=== PATIENT | male | born 1935 | race Caucasian/White ===

== ENCOUNTER 2016-05-13 09:09 | Outpatient (RCR) | payer MEDICARE, OTHER ==
--- OUTSIDE RECORDS SUMMARY | 2016-02-23 13:29 | XMS REPORT | Continuity of Care Document ---
Author Author [facility] Organization [facility] Address Unknown Phone Unavailable Care Team Providers Care Assembler Hydraulic Backhoe Name Role Phone NO, LOCAL PHYSICIAN PCP Unavailable Insurance Providers Payer Name Policy Number Subscriber Name Relationship Wps Medicare [id number] Charlene Gautam 18 Self / Same As Patient [employer] [id number] Charlene Gautam 18 Self / Same As Patient Advance Directives Directive Response Recorded Date/Time Advance Directives No 10/06/15 12:21pm Health Care Power of Product Lister No 10/06/15 12:21pm Organ Donor No 10/06/15 12:21pm Resuscitation Status Full Code 10/06/15 12:21pm Problems Active Problems Medical Problem Onset Date Status Episode of hypertension Unknown Acute Otalgia of right ear Unknown Acute Otalgia of right ear Unknown Acute Otitis externa Unknown Acute Sinusitis Unknown Acute Medications Current Home Medications Medication Dose Units Route Directions Days/Qty Instructions Start Date Aspirin 81 Mg 81 Mg Oral Daily 08/09/14 Hydrocodone/Acetaminophen 1 Each 1 Each Oral Every 6 Hours as needed for Pain 10 05/31/15 Pantoprazole Sodium 40 Mg 40 Mg Oral Daily 30 10/06/15 Past Home Medications Medication Directions Ordered Status Prednisone 20 Mg Tablet, 40 Mg Oral Daily 08/09/14 Discontinued Cefdinir (Omnicef) 300 Mg Capsule, 1 Each Oral Twice A Day 08/09/14 Discontinued Metronidazole 250 Mg Tablet, 250 Mg Oral Twice A Day 05/31/15 Discontinued Ciprofloxacin Hcl 500 Mg Tablet, 500 Mg Oral Twice A Day 05/31/15 Discontinued Ciprofloxacin Hcl/Dexameth 7.5 Ml Soln, 4 Drops Left Ear Twice A Day Discontinued Social History Social History Problem Response Recorded Date/Time Alcohol Use Denies Use 05/31/2015 7:35am Recreational Drug Use No 05/31/2015 7:35am Recent Foreign Travel No 10/06/2015 12:27pm Recent Infectious Disease Exposure No 10/06/2015 12:27pm Smoking Status Never a Smoker 10/06/2015 12:20pm Query Response Start Date Stop Date Smoking Status Never a Smoker Hospital Discharge Instructions Patient Instructions Physician Instructions New, Converted or Re-Newed RX: RX on Chart Plan of Care/Instructions/FU: Follow-up with me in 3 weeks. To avoid ibuprofen and all non-steroidals. Activity as Tolerated: Yes Discharge Diet: No Restrictions Pneu Vac Indicated: Yes Care Plan Patient Instructions:: Follow-up with me in 3 weeks. To avoid ibuprofen and all non-steroidals. Plan of Care Discharge Date 10/06/15 3:15pm Instructions/Education Provided EGD-ESOPHAGOGASTRODUODENOSCOPY Diet for Ulcers and Gastritis (GEN) Chronic Dysphagia (DC) Prescriptions See Medication Section Functional Status No functional status results. Allergies, Adverse Reactions, Alerts No known allergies. Immunizations No immunization records. Vital Signs Acute Vital Signs Vital Response Date/Time Temperature (Fahrenheit) 97.8 degrees F (97.6 - 99.5) 10/06/2015 3:05pm Temperature (Calculated Celsius) 36.79498 degrees C (36.4 - 37.5) 10/06/2015 3:05pm Temperature Source Tympanic 10/06/2015 3:05pm Pulse Rate (adult) 67 bpm (60 - 90) 10/06/2015 3:05pm Respiratory Rate 16 bpm (12 - 24) 10/06/2015 3:05pm O2 Sat by Pulse Oximetry 98 % (88 - 100) 10/06/2015 3:05pm Blood Pressure 120/63 mm Hg 10/06/2015 3:05pm Pain Numeric Pain Scale 0-No Pain 10/06/2015 1:15pm Pain Intensity 0 10/06/2015 3:05pm Height (Feet) 5 feet 10/06/2015 12:21pm Height (Inches) 7.00 inches 10/06/2015 12:21pm Height (Calculated Centimeters) 170.407204 cm 10/06/2015 12:21pm Weight (Pounds) 180 pounds 10/06/2015 12:21pm Weight (Ounces) 0.0 oz 10/06/2015 12:21pm Weight (Calculated Grams) 37038.627 gm 10/06/2015 12:21pm Weight (Calculated Kilograms) 81.461107 kilograms 10/06/2015 12:21pm Calculated BMI 28.2 10/06/2015 12:19pm Results No known relevant diagnostic tests, laboratory data and/or discharge summary. Procedures Procedure Status Date Provider(s) Esophagogastroduodenoscopy (EGD) with dilation Completed 10/06/15 JIMBO GAMEZ MD Encounters Encounter Location Arrival/Admit Date Discharge/Depart Date Attending Provider Departed [facility] 10/06/15 11:39am 10/06/15 3:15pm JIMBO GAMEZ MD Registered Clinic [facility] 10/03/15 1:51pm JIMBO GAMEZ MD Registered Clinic [facility] 10/03/15 7:34am JIMBO GAMEZ MD
[2016-02-23 15:32] LABS: BASOPHILS % (AUTO) 0 % (0-10); EOSINOPHILS % (AUTO) 1 % (0-10); LYMPHOCYTES % (AUTO) 33 % (12-44); MEAN CORPUSCULAR HEMOGLOBIN 33 PG (25-34); MEAN CORPUSCULAR HGB CONC 33 G/DL (32-36); MEAN CORPUSCULAR VOLUME 102 FL (80-99); MEAN PLATELET VOLUME 10.1 FL (7.4-10.4); MONOCYTES # (AUTO) 0.8 X 10^3 (0.0-1.0); MONOCYTES % (AUTO) 28 % (0-12); NEUTROPHILS # (AUTO) 1.1 X 10^3 (1.8-7.8); NEUTROPHILS % (AUTO) 38 % (42-75); PLATELET COUNT 118 10^3/uL (130-400); RED BLOOD COUNT 3.44 10^6/uL (4.35-5.85); RED CELL DISTRIBUTION WIDTH 14.6 % (10.0-14.5); WHITE BLOOD COUNT 2.9 10^3/uL (4.3-11.0)
[2016-02-23 15:50] LABS: ALANINE AMINOTRANSFERASE < 6 U/L (0-55); ANION GAP 7 MMOL/L (5-14); ASPARTATE AMINO TRANSFERASE 14 U/L (5-34); BILIRUBIN,TOTAL 0.6 MG/DL (0.1-1.0); BLOOD UREA NITROGEN 9 MG/DL (7-18); BUN/CREATININE RATIO 10; CALCIUM 8.9 MG/DL (8.5-10.1); CARBON DIOXIDE 27 MMOL/L (21-32); CHLORIDE 106 MMOL/L (98-107); CREATININE SERUM 0.94 MG/DL (0.60-1.30); GFR ESTIMATED > 60; GLUCOSE 92 MG/DL (70-105); LACTATE DEHYDROGENASE 151 U/L (125-220); SODIUM 140 MMOL/L (135-145); TOTAL PROTEIN 6.4 G/DL (6.4-8.2)
[2016-02-23 15:52] LABS: BAND NEUTROPHILS 7 %; BASOPHILS % (MANUAL) 0 %; EOSINOPHILS % (MANUAL) 1 %; LYMPHOCYTES % (MANUAL) 24 %; METAMYELOCYTES % 4 %; NEUTROPHILS % (MANUAL) 30 %
[2016-02-23 16:31] LABS: PEP REPORT SEE PATH REPORT
[2016-02-23 16:46] LABS: RETICULOCYTE % 1.37 % (0.50-2.40)
[2016-02-23 16:53] LABS: PATH WILL NEED TO REVIEW SMEAR PATH TO REVIEW
[2016-02-24 03:19] LABS: LIGHT CHAIN KAPPA SERUM QUANT 31.86 mg/L (3.30-19.40); LIGHT CHAIN LAMBDA SERUM QUANT 18.88 mg/L (5.71-26.30)
[2016-02-24 07:39] LABS: FOLIC ACID 8.8 ng/mL (1.5-24.0)
[2016-02-25 10:39] LABS: CLIN PATHOLOGY REPORT FOOTNOTE; SERUM PROTEIN ELEC DETAIL L-16-0015031
[2016-04-12 08:58] LABS: BASOPHILS % (AUTO) 0 % (0-10); EOSINOPHILS % (AUTO) 1 % (0-10); LYMPHOCYTES # (AUTO) 0.8 X 10^3 (1.0-4.0); LYMPHOCYTES % (AUTO) 35 % (12-44); MEAN CORPUSCULAR HEMOGLOBIN 33 PG (25-34); MEAN CORPUSCULAR HGB CONC 33 G/DL (32-36); MEAN CORPUSCULAR VOLUME 99 FL (80-99); MEAN PLATELET VOLUME 10.2 FL (7.4-10.4); MONOCYTES # (AUTO) 0.8 X 10^3 (0.0-1.0); MONOCYTES % (AUTO) 33 % (0-12); NEUTROPHILS # (AUTO) 0.7 X 10^3 (1.8-7.8); NEUTROPHILS % (AUTO) 31 % (42-75); PLATELET COUNT 162 10^3/uL (130-400); RED BLOOD COUNT 3.72 10^6/uL (4.35-5.85); RED CELL DISTRIBUTION WIDTH 13.9 % (10.0-14.5); WHITE BLOOD COUNT 2.4 10^3/uL (4.3-11.0)
[2016-04-29 14:15] LABS: BASOPHILS % (AUTO) 0 % (0-10); EOSINOPHILS # (AUTO) 0.1 10^3/uL (0.0-0.3); EOSINOPHILS % (AUTO) 2 % (0-10); LYMPHOCYTES # (AUTO) 1.1 X 10^3 (1.0-4.0); LYMPHOCYTES % (AUTO) 31 % (12-44); MEAN CORPUSCULAR HEMOGLOBIN 33 PG (25-34); MEAN CORPUSCULAR HGB CONC 32 G/DL (32-36); MEAN CORPUSCULAR VOLUME 102 FL (80-99); MEAN PLATELET VOLUME 10.6 FL (7.4-10.4); MONOCYTES # (AUTO) 1.2 X 10^3 (0.0-1.0); MONOCYTES % (AUTO) 36 % (0-12); NEUTROPHILS # (AUTO) 1.1 X 10^3 (1.8-7.8); NEUTROPHILS % (AUTO) 31 % (42-75); PLATELET COUNT 160 10^3/uL (130-400); RED BLOOD COUNT 3.31 10^6/uL (4.35-5.85); RED CELL DISTRIBUTION WIDTH 13.3 % (10.0-14.5); RETICULOCYTE % 1.17 % (0.50-2.40); WHITE BLOOD COUNT 3.4 10^3/uL (4.3-11.0)
[2016-04-29 15:05] LABS: BAND NEUTROPHILS 2 %; BASOPHILS % (MANUAL) 0 %; EOSINOPHILS % (MANUAL) 2 %; LYMPHOCYTES % (MANUAL) 35 %; NEUTROPHILS % (MANUAL) 27 %; REACTIVE LYMPHOCYTES 1 %
[~2016-05-13 09:09] MED LIST: ACET325T38 PO; ASP81CT PO; ASPI-983 PO; CEFD300C3 PO; CEPH500T PO; CIPR-225 PO; HYDR-3812 PO; METR250T PO; NF-CIPDEC LEFT EAR; PANT40TA2 PO; PRED20TA PO
== END 2016-05-23 | disposition home or self-care (01) ==
LOC: ONC 09:09
PROVIDERS: ATTEND Internal Medicine Hematology & Oncology
DX: C93.10 Chronic myelomonocytic leukemia not having achieved remission (principal); D61.818 Other pancytopenia; Z79.899 Other long term (current) drug therapy
CPT/HCPCS: 36415; 38221; 80053; 82607; 82728; 82746; 83540; 83615; 83883; 84155; 84165; 85007; 85025; 85027; 85045; 88184; 88185; 88305; 88311; 88313; 99213; 99214

== ENCOUNTER → 2016-09-24 | Outpatient (CLI) | payer MEDICARE, OTHER ==
[~2016-09-24] MED LIST changes: +CATHETER FLUSH 10 ML SYR IV PRN; +IOHEXOL 350 MG/ML 100 ML (OMNIPAQUE 350) VIAL IV ONE; +NS 100 ML (IVPB) BAG IV ONE
[2016-09-24 08:38] LABS: BLOOD UREA NITROGEN 8 MG/DL (7-18); BUN/CREATININE RATIO 8; CREATININE SERUM 1.03 MG/DL (0.60-1.30); GFR ESTIMATED > 60
--- NOTE | 2016-09-24 11:59 | Diagnostic Imaging Report ---
PROCEDURE: CT abdomen and pelvis with and without contrast. TECHNIQUE: Precontrast acquisitions were acquired through the abdomen and pelvis. Multiple contiguous axial images were obtained through the abdomen and pelvis after the administration of intravenous contrast. INDICATION: Abdominal pain. 100 mL of Omnipaque 350 is administered intravenously. FINDINGS: The lung bases demonstrate a calcified granuloma in the posterior left lower lobe. The liver, the gallbladder, the spleen, the pancreas, and adrenal glands appear unremarkable. The kidneys have symmetric enhancement and contrast excretion. There is no hydronephrosis. The unenhanced phase demonstrates no urinary tract stones. There is mild thickening of the urinary bladder wall. The prostate is mildly enlarged at 5 cm in transverse dimension. The bladder wall thickening is similar to 01/26/2016 exam, likely secondary to BPH. There is diverticulosis. No diverticulitis. The appendix is normal. No bowel obstruction. There is mesenteric stranding similar to 01/26/2016 exam probably related to panniculitis. Minimal mesenteric lymphadenopathy seen. This is unchanged from 01/26/2016. No significant free fluid or fluid collection in the abdomen or pelvis is noted. The abdominal aorta is normal in caliber. No para-aortic significantly enlarged lymph node is noted. There is bilateral SI joint fusion. Degenerative changes in the lumbar spine also seen. IMPRESSION: 1. Diverticulosis. No diverticulitis. 2. Stable mesenteric stranding, presumably sequela of prior mesenteric panniculitis. Dictated by: Dictated on workstation # [id number]
== END ==
LOC: RAD 08:02
PROVIDERS: ATTEND Surgery
DX: K57.30 Diverticulosis of large intestine without perforation or abscess without bleeding (principal)
CPT/HCPCS: 36415; 74178; 82565; 84520

== ENCOUNTER → 2017-07-04 | Outpatient (CLI) | payer MEDICARE, OTHER ==
[~2017-07-04] MED LIST changes: +ACHD5005 PO; -CATHETER FLUSH 10 ML SYR IV PRN; -HYDR-3812 PO; -NS 100 ML (IVPB) BAG IV ONE; +NS 250 ML (IVPB) BAG IV ONE
[2017-07-04 10:34] LABS: BUN/CREATININE RATIO 5; CREATININE SERUM 1.07 MG/DL (0.60-1.30); GFR ESTIMATED > 60
--- NOTE | 2017-07-04 11:55 | Diagnostic Imaging Report ---
PROCEDURE: CT abdomen and pelvis with contrast. TECHNIQUE: Multiple contiguous axial images were obtained through the abdomen and pelvis after administration of intravenous contrast. INDICATION: Right upper quadrant pain and nausea. COMPARISON: Comparison is made with prior CT from 09/24/2016. FINDINGS: Imaging through the lung bases demonstrates several tiny calcified granulomas. There is mild basilar interstitial changes noted as well. The liver is without evidence of a discrete mass. Gallbladder is unremarkable. The pancreas and spleen are unremarkable apart from multiple splenic granulomas. No adrenal mass is identified. Kidneys are unremarkable. Aorta is non-aneurysmal. Hazy density to the central mesentery is similar to prior CT. Visualized bowel loops are normal caliber. There is diverticulosis of the descending and sigmoid colon but no evidence of acute diverticulitis. Bladder and prostate are unremarkable. IMPRESSION: Overall stable CT of the abdomen and pelvis when compared with prior exam from 09/24/2016. No new abnormality is seen. No acute features detected. Dictated by: Dictated on workstation # [id number]
== END ==
LOC: RAD 09:43
PROVIDERS: ATTEND Internal Medicine Gastroenterology
DX: R10.11 Right upper quadrant pain (principal); R10.811 Right upper quadrant abdominal tenderness; R79.9 Abnormal finding of blood chemistry, unspecified
CPT/HCPCS: 36415; 74177; 82565; 84520

== ENCOUNTER → 2017-07-11 | Outpatient (CLI) | payer MEDICARE, OTHER ==
[~2017-07-11] MED LIST changes: +CATHETER FLUSH 10 ML SYR IV PRN; -IOHEXOL 350 MG/ML 100 ML (OMNIPAQUE 350) VIAL IV ONE; -NS 250 ML (IVPB) BAG IV ONE
--- NOTE | 2017-07-11 10:37 | Diagnostic Imaging Report ---
PROCEDURE: US Gallbladder. TECHNIQUE: Multiple real-time grayscale images were obtained over the right upper quadrant in various projections. INDICATION: Right upper quadrant pain. The visualized pancreas is unremarkable. The liver is normal in size. There is some mild increased echogenicity suggestive of hepatic steatosis. Portal vein is patent and demonstrates normal direction of flow. The gallbladder is without stones or sludge. No wall thickening or biliary ductal dilatation is seen. The right kidney is unremarkable. There is no ascites. IMPRESSION: 1. Mild hepatic steatosis. 2. No evidence of cholelithiasis or acute cholecystitis. Dictated by: Dictated on workstation # [id number]
--- NOTE | 2017-07-11 12:05 | Diagnostic Imaging Report ---
INDICATION: Right upper quadrant pain. TECHNIQUE: Patient was administered 5.1 mCi technetium 99m Choletec and imaging over the abdomen was performed. After 60 minutes, patient ingested one can of Ensure and gallbladder ejection fraction was calculated. FINDINGS: There is homogeneous uptake of activity by the liver with prompt excretion of activity into the common duct and gallbladder. Normal passage of activity into the small bowel is seen. There does appear to be reflux of activity into the stomach consistent with bile reflux. Gallbladder ejection fraction is slightly low at 33%. IMPRESSION: 1. No evidence of cystic duct or common bile duct obstruction. 2. Slightly low gallbladder ejection fraction of 33%. 3. Findings consistent with bile reflux. Dictated by: Dictated on workstation # [id number]
== END ==
LOC: RAD 08:23
PROVIDERS: ATTEND Internal Medicine Gastroenterology
DX: K76.0 Fatty (change of) liver, not elsewhere classified (principal)
CPT/HCPCS: 76705; 78227

== ENCOUNTER 2017-07-24 03:31 | Emergency (ER) | payer MEDICARE ==
[~2017-07-24] VITALS: Ht 172.7 cm; Wt 90.7 kg
[~2017-07-24 03:31] MED LIST changes: -CATHETER FLUSH 10 ML SYR IV PRN
[2017-07-24] MEDS ORDERED: NS IV 500 ML 500 ML IV ONE (03:53)
--- NOTE | 2017-07-24 04:01 | ED Abdominal Pain ---
General Chief Complaint: General Problems/Pain Stated Complaint: DIZZY HEADACHE AB PAIN Nursing Triage Note: Patient c/o R leg pain, R head pain, abdomen pain, dizziness, weakness. Patient reports these problems have been intermittent for months Sepsis Screen: No Definite Risk Source of Information: Patient, Other Exam Limitations: No Limitations History of Present Illness Date Seen by Provider: Jul 24, 2017 Time Seen by Provider: 03:50 Initial Comments Patient presents to the ER by private conveyance with his significant other and a chief complaint of 6 months right head pain, several months right lower abdominal pain that has gotten a little worse tonight and new onset of left lateral leg pain. He denies any falls or trauma. He says he says it abdomen worked up for gallbladder at [facility]. He has a primary care doctor Dr. Voss but he says he's never seen him and doesn't want follow with him but doesn' t want to establish with anyone else either. [facility] also [facility] but he says never seen [facility] doctor he was [facility] and doesn't want to go see him. He is a very difficult historian because a meandering story vague, changing details. He says his pain is mostly in his lower suprapubic and right lower quadrant region. He says he has fevers and chills but does not measure them. He does not seem to follow with any one doctor. He has multiple sporadic episodes of care across multiple health centers mostly ERs and urgent cares. He is either unable or unwilling to give any meaningful medical history outside of his current 3 complaints of the last 6 months. He denies any surgery history of his abdomen. Allergies and Home Medications Allergies Coded Allergies: No Known Drug Allergies (Verified , 10/06/15) Home Medications Acetaminophen 325 Mg Tablet, 650 MG PO Q4H, (Reported) Aspirin 81 Mg Tablet.dr, 162 MG PO DAILY, (Reported) Patient Home Medication List Home Medication List Reviewed: Yes Review of Systems Constitutional: No chills, No diaphoresis EENTM: No Blurred Vision, No Double Vision Respiratory: Denies Cough, Denies Shortness of Air Cardiovascular: Denies Chest Pain, Denies Edema Gastrointestinal: Denies Abdomen Distended; Abdominal Pain; Denies Constipated Genitourinary: Denies Burning, Denies Discharge Musculoskeletal: No back pain, No joint pain; muscle pain (left lateral thigh) Skin: No pruritus, No rash Psychiatric/Neurological: Denies Headache, Denies Numbness Past [id number] Hx Patient Social History Alcohol Use: Occasionally Uses Number of Drinks Today: AA Alcohol Beverage of Choice: Beer Recreational Drug Use: No Smoking Status: Never a Smoker Recent Foreign Travel: No Contact w/Someone Who Travel: No Recent Infectious Disease Expo: No Recent Hopitalizations: No Physical Abuse: No Sexual Abuse: No Seasonal Allergies Seasonal Allergies: No Past Medical History 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 pylori) Musculoskeletal: No Endocrine: No Cancer: No Psychosocial: No Nursing Suicide Risk Score: 0 Integumentary: No Blood Disorders: No Family Medical History No Pertinent Family Hx Physical Exam Vital Signs Vital Signs - First Documented 07/24/17 03:39 Temp 98.4 Pulse 78 Resp 18 B/P (MAP) 183/100 (127) Pulse Ox 98 Capillary Refill : Less Than 3 Seconds General Appearance: WD/WN, no apparent distress HEENT: PERRL/EOMI, normal ENT inspection, TMs normal, pharynx normal, other ( left frontal sinus tenderness to palpation. No temporal erythema, edema or tenderness to palpation.) Neck: non-tender, full range of motion, supple, normal inspection Respiratory: chest non-tender, lungs clear, normal breath sounds, no respiratory distress, no accessory muscle use Cardiovascular: normal peripheral pulses, regular rate, rhythm, no edema Peripheral Pulses: 2+ Radial Pulses (R), 2+ Radial Pulses (L) Gastrointestinal: normal bowel sounds, non tender, soft Extremities: non-tender, normal inspection, no pedal edema, normal capillary refill Neurologic/Psychiatric: alert, normal mood/affect, oriented x 3 Skin: normal color, warm/dry Progress/Results/Core Measures Lab Results Laboratory Tests Test 07/24/17 03:55 07/24/17 04:50 Range/Units White Blood Count 3.7 L 4.3-11.0 10^3/uL Red Blood Count 3.46 L 4.35-5.85 10^6/uL Hemoglobin 12.0 L 13.3-17.7 G/DL Hematocrit 37 L 40-54 % Mean Corpuscular Volume 106 H 80-99 FL Mean Corpuscular Hemoglobin 35 H 25-34 PG Mean Corpuscular Hemoglobin Concent 33 32-36 G/DL Red Cell Distribution Width 14.1 10.0-14.5 % Platelet Count 114 L 130-400 10^3/uL Mean Platelet Volume 10.6 H 7.4-10.4 FL Neutrophils (%) (Auto) 30 L 42-75 % Lymphocytes (%) (Auto) 15 12-44 % Monocytes (%) (Auto) 54 H 0-12 % Eosinophils (%) (Auto) 1 0-10 % Basophils (%) (Auto) 0 0-10 % Neutrophils # (Auto) 1.1 L 1.8-7.8 X 10^3 Lymphocytes # (Auto) 0.6 L 1.0-4.0 X 10^3 Monocytes # (Auto) 2.0 H 0.0-1.0 X 10^3 Eosinophils # (Auto) 0.1 0.0-0.3 10^3/uL Basophils # (Auto) 0.0 0.0-0.1 10^3/uL Sodium Level 142 135-145 MMOL/L Potassium Level 3.7 3.6-5.0 MMOL/L Chloride Level 108 H 98-107 MMOL/L Carbon Dioxide Level 24 21-32 MMOL/L Anion Gap 10 5-14 MMOL/L Blood Urea Nitrogen 7 7-18 MG/DL Creatinine 0.96 0.60-1.30 MG/DL Estimat Glomerular Filtration Rate > 60 BUN/Creatinine Ratio 7 Glucose Level 109 H 70-105 MG/DL Calcium Level 8.8 8.5-10.1 MG/DL Total Bilirubin 0.6 0.1-1.0 MG/DL Aspartate Amino Transf (AST/SGOT) 13 5-34 U/L Alanine Aminotransferase (ALT/SGPT) < 6 0-55 U/L Alkaline Phosphatase 50 40-136 U/L C-Reactive Protein High Sensitivity 0.46 0.00-0.50 MG/DL Total Protein 7.0 6.4-8.2 GM/DL Albumin 4.1 3.2-4.5 GM/DL Urine Color YELLOW Urine Clarity CLEAR Urine pH 7 5-9 Urine Specific [place] 1.005 L 1.016-1.022 Urine Protein NEGATIVE NEGATIVE Urine Glucose (UA) NEGATIVE NEGATIVE Urine Ketones NEGATIVE NEGATIVE Urine Nitrite NEGATIVE NEGATIVE Urine Bilirubin NEGATIVE NEGATIVE Urine Urobilinogen NORMAL NORMAL MG/DL Urine Leukocyte Esterase NEGATIVE NEGATIVE Urine RBC (Auto) 1+ H NEGATIVE Urine RBC RARE /HPF Urine WBC NONE /HPF Urine Squamous Epithelial Cells RARE /HPF Urine Crystals NONE /LPF Urine Bacteria NEGATIVE /HPF Urine Casts NONE /LPF Urine Mucus NEGATIVE /LPF Urine Culture Indicated NO My Orders Orders - ARLETTE NAYAK Ct Abdomen/Pelvis W (07/24/17 03:53) Saline Lock/Iv-Start (07/24/17 03:53) Cbc With Automated Diff (07/24/17 03:53) Comprehensive Metabolic Panel (07/24/17 03:53) Hs C Reactive Protein (07/24/17 03:53) Ua Culture If Indicated (07/24/17 03:53) Ns Iv 500 Ml (Sodium Chloride 0.9%) (07/24/17 03:53) Ct Head Wo (07/24/17 04:05) Femur, Left, 2 Views (07/24/17 04:05) Iohexol Injection (Omnipaque 350 Mg/Ml 1 (07/24/17 05:00) Ns (Ivpb) (Sodium Chloride 0.9%) (07/24/17 05:00) Ketorolac Injection (Toradol Injection) (07/24/17 05:45) Medications Given in ED Current Medications Medications Dose Ordered Sig/Jay Route Start Time Stop Time Status Last Admin Dose Admin Iohexol 100 ml ONCE ONCE IV 07/24/17 05:00 07/24/17 05:02 DC 07/24/17 04:52 100 ML Ketorolac Tromethamine 15 mg ONCE ONCE IVP 07/24/17 05:45 07/24/17 05:46 DC 07/24/17 05:41 15 MG Sodium Chloride 250 ml ONCE ONCE IV 07/24/17 05:00 07/24/17 05:02 DC 07/24/17 04:52 80 ML Sodium Chloride 500 ml @ 0 mls/hr Q0M ONCE IV 07/24/17 03:53 07/24/17 03:56 DC 07/24/17 04:08 0 MLS/HR Vital Signs/I&O 07/24/17 03:39 Temp 98.4 Pulse 78 Resp 18 B/P (MAP) 183/100 (127) Pulse Ox 98 Blood Pressure Mean: 127 Progress Note #1: Time: 04:03 Progress Note Plan to scan his head given his right head pain which seems to be clustered around his right maxilla. We'll get a CRP ESR thinking about temporal arteritis although he is nontender over his judaism. We'll get some basic blood counts CMP and do a CT of his abdomen. It would appear based on previous records he has these exact same litany of complaints in previous examinations. Previous previous workups didn't reveal anything dangerous. He has declined any nausea or pain medicine tonight. We'll start with a half liter fluids while we do our workup. Progress Note #2: Time: 04:52 Progress Note Patient is produced urine. His labs do show some low cell lines but looking back over the last 5 years these all been chronically low and there are no lower than what they typically are of his white cells, hematocrit and platelets. CMP is largely unremarkable. He is away getting his CAT scan presently. No further desire for pain or nausea medicine in the interim. Reviewing his previous records demonstrates again these are chronic complaints that he has made multiple times over the past several years without any significant acute pathologic findings on ER workup. Per his admission he is not having this worked up further outpatient and have impressed upon him the need to continue the outpatient workup instead of just repeating the exact same workup over and over with different providers in different facilities. Diagonstic Imaging: CT Plain Films/CT/US/NM/MRI: head Comments No acute findings Reviewed: [facility] Diagonstic Imaging: CT Plain Films/CT/US/NM/MRI: abdomen, pelvis Comments Tamiko mesentery and central abdomen is nonspecific and unchanged from prior imaging. Reviewed: Reviewed by Me Diagonstic Imaging: Xray Plain Films/CT/US/NM/MRI: femur (left) Comments No acute osseous abnormalities or soft tissue signs. Reviewed: Reviewed by Me Departure Impression Primary Impression: Abdominal pain Qualified Codes: R10.31 - Right lower quadrant pain Disposition: 01 HOME, SELF-CARE Condition: Stable Departure-Patient Inst. Decision time for Depature: 06:04 Referrals: MOLLY VOSS MD (PCP/Family) Primary Care Physician Patient Instructions: Acute Abdomen (Belly Pain), Adult (DC), LOCAL PHYSICIAN LIST Add. Discharge Instructions: Please call your primary care provider and set up an appointment to further discuss, evaluate and manage your symptoms. All discharge instructions reviewed with patient and/or family. Voiced understanding. Copy Copies To 1: MOLLY VOSS MD, TITUS J Jul 24, 2017 04:01
[2017-07-24 04:02] LABS: BASOPHILS % (AUTO) 0 % (0-10); EOSINOPHILS # (AUTO) 0.1 10^3/uL (0.0-0.3); EOSINOPHILS % (AUTO) 1 % (0-10); HEMATOCRIT 37 % (40-54); LYMPHOCYTES # (AUTO) 0.6 X 10^3 (1.0-4.0); LYMPHOCYTES % (AUTO) 15 % (12-44); MEAN CORPUSCULAR HEMOGLOBIN 35 PG (25-34); MEAN CORPUSCULAR HGB CONC 33 G/DL (32-36); MEAN CORPUSCULAR VOLUME 106 FL (80-99); MEAN PLATELET VOLUME 10.6 FL (7.4-10.4); MONOCYTES % (AUTO) 54 % (0-12); NEUTROPHILS # (AUTO) 1.1 X 10^3 (1.8-7.8); NEUTROPHILS % (AUTO) 30 % (42-75); PLATELET COUNT 114 10^3/uL (130-400); RED BLOOD COUNT 3.46 10^6/uL (4.35-5.85); RED CELL DISTRIBUTION WIDTH 14.1 % (10.0-14.5); WHITE BLOOD COUNT 3.7 10^3/uL (4.3-11.0)
[2017-07-24 04:20] LABS: ALANINE AMINOTRANSFERASE < 6 U/L (0-55); ALBUMIN 4.1 GM/DL (3.2-4.5); ALKALINE PHOSPHATASE 50 U/L (40-136); BILIRUBIN,TOTAL 0.6 MG/DL (0.1-1.0); BUN/CREATININE RATIO 7; CALCIUM 8.8 MG/DL (8.5-10.1); CARBON DIOXIDE 24 MMOL/L (21-32); CHLORIDE 108 MMOL/L (98-107); CREATININE SERUM 0.96 MG/DL (0.60-1.30); GFR ESTIMATED > 60; GLUCOSE 109 MG/DL (70-105); POTASSIUM 3.7 MMOL/L (3.6-5.0); SODIUM 142 MMOL/L (135-145)
[2017-07-24 04:58] LABS: BILIRUBIN,URINE NEGATIVE (NEGATIVE); CLARITY,URINE CLEAR; COLOR,URINE YELLOW; GLUCOSE, URINE (UA) NEGATIVE (NEGATIVE); KETONES,URINE NEGATIVE (NEGATIVE); LEUKOCYTE ESTERASE ,URINE NEGATIVE (NEGATIVE); NITRITE,URINE NEGATIVE (NEGATIVE); PH,URINE 7 (5-9); PROTEIN,URINE NEGATIVE (NEGATIVE); UROBILINOGEN,URINE NORMAL (NORMAL)
[2017-07-24] MEDS ORDERED: IOHEXOL 350 MG/ML 100 ML (OMNIPAQUE 350) VIAL IV ONE (05:00)
[2017-07-24] MEDS ORDERED: NS 250 ML (IVPB) BAG IV ONE (05:00)
[2017-07-24 05:03] LABS: BACTERIA,URINE NEGATIVE /HPF; RBC,URINE RARE /HPF; SQUAMOUS EPITHELIAL CELL,UR RARE /HPF
[2017-07-24] MEDS ORDERED: KETOROLAC 30 MG/ML VIAL IVP ONE (05:45)
--- NOTE | 2017-07-24 06:11 | Diagnostic Imaging Report ---
PROCEDURE: CT abdomen and pelvis with contrast. TECHNIQUE: Multiple contiguous axial images were obtained through the abdomen and pelvis after administration of intravenous contrast. INDICATION: Abdominal pain and weakness Comparison is made to study of 07/04/2017. Images through the lower thorax again demonstrate calcified granulomas in the subcarinal region and within the lung bases. In the upper abdomen, there are also calcified granulomas in the spleen. Otherwise no focal hepatic or splenic lesion is identified. Note is made of coronary artery calcification. No pancreatic, adrenal gland or renal lesion is detected. Increased density in the mesentery has not changed. There is no evidence of pathologic adenopathy. There is mild aortoiliac atherosclerotic calcification. There is tortuosity of the iliac arteries. No free fluid is seen in the abdomen or pelvis, however, there does appear to be hydrocele present. No new inflammation is identified. There is no evidence of localized transition point to indicate a bowel obstruction. IMPRESSION: Stable increased mesenteric density without evidence of new abnormality or progression. Dictated by: Dictated on workstation # [id number]
[2017-07-24 06:22] VITALS: BP 148/62
--- NOTE | 2017-07-24 07:09 | Diagnostic Imaging Report ---
PROCEDURE: CT head without contrast. TECHNIQUE: Multiple contiguous axial images were obtained through the brain without the use of intravenous contrast. DATE: 07/24/2017. COMPARISON: 03/16/2016. INDICATION: 81-year-old male, right hand pain. Dizziness and weakness. FINDINGS: There is mild proportional prominence of the ventricles and CSF spaces compatible with mild cerebral volume loss. There is no mass effect or midline shift. There is no acute intracranial hemorrhage. There is no abnormal extra-axial fluid collection. The visualized portions of the paranasal sinuses, mastoid air cells and middle ears are well aerated. IMPRESSION: 1. No identified acute intracranial abnormality. 2. Mild cerebral volume loss. Dictated by: Dictated on workstation # [id number]
--- NOTE | 2017-07-24 07:20 | Diagnostic Imaging Report ---
Procedure: Left femur. Indication: Leg pain. Procedure: AP and lateral views were obtained. Comparison: There are no prior studies available for comparison. Findings: There is no fracture, dislocation or acute bony abnormality evident. There is at least moderate degenerative disease of both the hip and knee joint. The soft tissues are unremarkable aside from vascular calcifications. Incidental note is made of opacification of the bladder by iodinated contrast. The patient did have a CT abdomen/pelvis exam earlier today. Impression: There is no evidence for an acute bony abnormality. Dictated by: Dictated on workstation # [id number]
== END 2017-07-24 06:23 | disposition home or self-care (01) ==
LOC: EDUNIT# 03:31 → ER 03:34
DX: R10.31 Right lower quadrant pain (principal); Z79.82 Long term (current) use of aspirin; Z90.89 Acquired absence of other organs; Z87.19 Personal history of other diseases of the digestive system
CPT/HCPCS: 36415; 70450; 73552; 74177; 80053; 81000; 85025; 86141; 96374

== ENCOUNTER 2018-05-26 13:17 | Emergency (ER) | payer MEDICARE ==
[~2018-05-26] VITALS: Ht 170.2 cm; Wt 90.7 kg
[2018-05-26 13:23] VITALS: BP 194/95
[2018-05-26] MEDS ORDERED: ASPIRIN 81 MG CHEW (CHILDREN'S ASA) PO ONE (13:30)
[2018-05-26 13:47] LABS: BASOPHILS % (AUTO) 1 % (0-10); EOSINOPHILS % (AUTO) 2 % (0-10); HEMATOCRIT 36 % (40-54); HEMOGLOBIN 11.4 G/DL (13.3-17.7); LYMPHOCYTES # (AUTO) 1.1 X 10^3 (1.0-4.0); LYMPHOCYTES % (AUTO) 49 % (12-44); MEAN CORPUSCULAR HEMOGLOBIN 34 PG (25-34); MEAN CORPUSCULAR HGB CONC 32 G/DL (32-36); MEAN CORPUSCULAR VOLUME 107 FL (80-99); MEAN PLATELET VOLUME 10.5 FL (7.4-10.4); MONOCYTES # (AUTO) 0.7 X 10^3 (0.0-1.0); MONOCYTES % (AUTO) 33 % (0-12); NEUTROPHILS # (AUTO) 0.3 X 10^3 (1.8-7.8); NEUTROPHILS % (AUTO) 15 % (42-75); PLATELET COUNT 117 10^3/uL (130-400); RED CELL DISTRIBUTION WIDTH 13.7 % (10.0-14.5); WHITE BLOOD COUNT 2.2 10^3/uL (4.3-11.0)
--- NOTE | 2018-05-26 13:54 | ED General ---
General Chief Complaint: Dizziness/Syncope Stated Complaint: SYNCOPAL EPISODE Nursing Triage Note: Patient presented to the ER via EMS secondary to a syncopal episode. EMS advise that the patient was walking into the court house when he became very pale and diaphoretic. The patient advised court staff that he felt as though he was going to pass out. The patient did not fall or strike his head. He was assisted to the ground per [facility] deputies. The patient advises that he is currently being treated for an inner ear infection and was recently prescribed meclazine. Nursing Sepsis Screen: No Definite Risk Source of Information: Patient, EMS Exam Limitations: No Limitations History of Present Illness Date Seen by Provider: May 26, 2018 Time Seen by Provider: 13:52 Initial Comments This 83-year-old white male presents after a near syncopal episode that occurred outside the Court house shortly prior to presentation emergency department. The patient denies chest pain, palpitations, shortness of breath, nausea or vomiting. The patient did become very pale and diaphoretic according to witnesses. The patient has been receiving treatment for labyrinthitis which he attributes to the cause of his near syncope today. At this time the patient is having no significant complaints. Allergies and Home Medications Allergies Uncoded Allergies: BEES (Allergy, Severe, 05/26/18) Home Medications Acetaminophen 325 Mg Tablet, 650 MG PO Q4H, (Reported) Aspirin 81 Mg Tablet.dr, 162 MG PO DAILY, (Reported) Patient Home Medication List Home Medication List Reviewed: Yes Review of Systems Review of Systems Constitutional: No chills; dizziness; No fever; weakness EENTM: No hearing loss, No ear pain, No blurred vision Respiratory: No cough Cardiovascular: No chest pain, No palpitations; syncope (near syncope today) Gastrointestinal: abdominal pain; No diarrhea, No nausea, No vomiting Genitourinary: no symptoms reported Musculoskeletal: no symptoms reported Skin: no symptoms reported Psychiatric/Neurological: No Symptoms Reported Hematologic/Lymphatic: No Symptoms Reported Immunological/Allergic: no symptoms reported Past Scitkrz-Poxugr-Xnxoqo Hx Past Med/Social Hx: Reviewed Nursing Past Med/Soc Hx Patient Social History Alcohol Use: Occasionally Uses Number of Drinks Today: AA Alcohol Beverage of Choice: Beer Recreational Drug Use: No Smoking Status: Unknown if Ever Smoked Recent Foreign Travel: No Contact w/Someone Who Travel: No Recent Infectious Disease Expo: No Recent Hopitalizations: No Seasonal Allergies Seasonal Allergies: No Past Medical History 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 pylori) Musculoskeletal: No Endocrine: No Cancer: No Psychosocial: No Integumentary: No Blood Disorders: No Family Medical History No Pertinent Family Hx Physical Exam Vital Signs Vital Signs - First Documented Capillary Refill : Less Than 3 Seconds Height, Weight, BMI Height: 5'7.00" Weight: 200lbs. 0.0oz. 90.749288kg; 28.2 BMI Method:Stated General Appearance: No Apparent Distress, WD/WN Eyes: Bilateral Eye Normal Inspection HEENT: Normal ENT Inspection Neck: Normal Inspection Respiratory: Lungs Clear Cardiovascular: Regular Rate, Rhythm, No Murmur Gastrointestinal: Normal Bowel Sounds, Non Tender, Soft Neurologic/Psychiatric: Alert, Oriented x3, No Motor/Sensory Deficits, Normal Mood/Affect Skin: Normal Color, Warm/Dry Progress/Results/Core Measures Suspected Sepsis Recent Fever Within 48 Hours: No Infection Criteria Present: Documented Infection New/Unexplained Altered Menta: No Sepsis Screen: No Definite Risk SIRS Temperature: Pulse: 78 Respiratory Rate: 14 Laboratory Tests 05/26/18 13:29: White Blood Count 2.2L Blood Pressure 194 /95 Mean: 128 Laboratory Tests 05/26/18 13:29: Creatinine 1.19, INR Comment 1.1, Platelet Count 117L, Total Bilirubin 0.5 Results/Orders Lab Results Laboratory Tests Test 05/26/18 13:29 Range/Units White Blood Count 2.2 L 4.3-11.0 10^3/uL Red Blood Count 3.37 L 4.35-5.85 10^6/uL Hemoglobin 11.4 L 13.3-17.7 G/DL Hematocrit 36 L 40-54 % Mean Corpuscular Volume 107 H 80-99 FL Mean Corpuscular Hemoglobin 34 25-34 PG Mean Corpuscular Hemoglobin Concent 32 32-36 G/DL Red Cell Distribution Width 13.7 10.0-14.5 % Platelet Count 117 L 130-400 10^3/uL Mean Platelet Volume 10.5 H 7.4-10.4 FL Neutrophils (%) (Auto) 15 L 42-75 % Lymphocytes (%) (Auto) 49 H 12-44 % Monocytes (%) (Auto) 33 H 0-12 % Eosinophils (%) (Auto) 2 0-10 % Basophils (%) (Auto) 1 0-10 % Neutrophils # (Auto) 0.3 L 1.8-7.8 X 10^3 Lymphocytes # (Auto) 1.1 1.0-4.0 X 10^3 Monocytes # (Auto) 0.7 0.0-1.0 X 10^3 Eosinophils # (Auto) 0.0 0.0-0.3 10^3/uL Basophils # (Auto) 0.0 0.0-0.1 10^3/uL Neutrophils % (Manual) 17 % Lymphocytes % (Manual) 49 % Monocytes % (Manual) 29 % Eosinophils % (Manual) 4 % Basophils % (Manual) 0 % Band Neutrophils 1 % Anisocytosis SLIGHT Macrocytosis SLIGHT Prothrombin Time 13.7 12.2-14.7 SEC INR Comment 1.1 0.8-1.4 Activated Partial Thromboplast Time 35 24-35 SEC Sodium Level 144 135-145 MMOL/L Potassium Level 3.7 3.6-5.0 MMOL/L Chloride Level 110 H 98-107 MMOL/L Carbon Dioxide Level 26 21-32 MMOL/L Anion Gap 8 5-14 MMOL/L Blood Urea Nitrogen 6 L 7-18 MG/DL Creatinine 1.19 0.60-1.30 MG/DL Estimat Glomerular Filtration Rate 59 BUN/Creatinine Ratio 5 Glucose Level 100 70-105 MG/DL Calcium Level 9.2 8.5-10.1 MG/DL Corrected Calcium 9.1 8.5-10.1 MG/DL Magnesium Level 2.3 1.8-2.4 MG/DL Total Bilirubin 0.5 0.1-1.0 MG/DL Aspartate Amino Transf (AST/SGOT) 18 5-34 U/L Alanine Aminotransferase (ALT/SGPT) 7 0-55 U/L Alkaline Phosphatase 45 40-136 U/L Myoglobin 35.3 10.0-92.0 NG/ML Troponin I < 0.028 <0.028 NG/ML B-Type Natriuretic Peptide 49.6 <100.0 PG/ML Total Protein 6.8 6.4-8.2 GM/DL Albumin 4.1 3.2-4.5 GM/DL My Orders Orders - LISSA, TATIANA S MD Ct Head Wo (05/26/18 13:51) Medications Given in ED Current Medications Medications Dose Ordered Sig/Jay Route Start Time Stop Time Status Last Admin Dose Admin Aspirin 324 mg ONCE ONCE PO 05/26/18 13:30 05/26/18 13:31 DC 05/26/18 13:34 324 MG Vital Signs/I&O 05/26/18 05/26/18 13:23 13:23 Pulse 78 Resp 14 B/P (MAP) 194/95 (128) Pulse Ox 98 98 O2 Delivery Room Air Room Air Capillary Refill : Less Than 3 Seconds Blood Pressure Mean: 128 Progress Note : Time: 14:57 Progress Note The patient remained asymptomatic while in the emergency department. I discussed his presentation with him and recommended that he rest at home with his meclizine and pursue a close follow-up with his doctor on Tuesday. I invited him to return to the emergency department if any further problems or questions. Departure Impression Primary Impression: Vertigo Disposition: 01 HOME, SELF-CARE Condition: Improved Departure-Patient Inst. Decision time for Depature: 14:58 Referrals: MOLLY DORAN MD (PCP/Family) Primary Care Physician Patient Instructions: Vertigo (a Type of Dizziness) (DC) Add. Discharge Instructions: Rest at home this . Take your meclizine as prescribed. Close follow-up with her doctor on Tuesday. Return if any problems or questions. All discharge instructions reviewed with patient and/or family. Voiced understanding. TATIANA ALCARAZ MD May 26, 2018 13:54
[2018-05-26 14:00] LABS: INR 1.1 (0.8-1.4); PROTHROMBIN TIME PATIENT 13.7 SEC (12.2-14.7)
[2018-05-26 14:07] LABS: ALANINE AMINOTRANSFERASE 7 U/L (0-55); ALBUMIN 4.1 GM/DL (3.2-4.5); ALKALINE PHOSPHATASE 45 U/L (40-136); BILIRUBIN,TOTAL 0.5 MG/DL (0.1-1.0); BUN/CREATININE RATIO 5; CALCIUM 9.2 MG/DL (8.5-10.1); CARBON DIOXIDE 26 MMOL/L (21-32); CHLORIDE 110 MMOL/L (98-107); CREATININE SERUM 1.19 MG/DL (0.60-1.30); GFR ESTIMATED 59; GLUCOSE 100 MG/DL (70-105); MAGNESIUM 2.3 MG/DL (1.8-2.4); POTASSIUM 3.7 MMOL/L (3.6-5.0); SODIUM 144 MMOL/L (135-145); TOTAL PROTEIN 6.8 GM/DL (6.4-8.2)
[2018-05-26 14:16] LABS: MYOGLOBIN SERUM 35.3 NG/ML (10.0-92.0)
[2018-05-26 14:23] LABS: ANISOCYTOSIS SLIGHT; BAND NEUTROPHILS 1 %; BASOPHILS % (MANUAL) 0 %; EOSINOPHILS % (MANUAL) 4 %; LYMPHOCYTES % (MANUAL) 49 %; MONOCYTES % (MANUAL) 29 %; NEUTROPHILS % (MANUAL) 17 %
--- NOTE | 2018-05-26 14:35 | Diagnostic Imaging Report ---
PROCEDURE: CT head without contrast. TECHNIQUE: Multiple contiguous axial images were obtained through the brain without the use of intravenous contrast. INDICATION: Syncope, right ear and right eye swelling. COMPARISON: 07/24/2017. FINDINGS: The ventricles and cortical sulci are prominent. There is no midline shift or mass effect identified. No acute intracranial hemorrhage is seen. Areas of decreased attenuation are seen in the subcortical and periventricular white matter. These likely represent chronic microvascular disease. No CT evidence of acute territorial ischemia is seen. The calvarium is intact. There is a small amount of soft tissue swelling in the right occipital region. The paranasal sinuses appear clear. IMPRESSION: 1. No acute intracranial hemorrhage. No CT evidence of acute territorial ischemia. 2. Mild soft tissue contusion in the right occipital region. No calvarium fracture seen. 3. Generalized parenchymal volume loss and findings of chronic microvascular disease. Dictated by: Dictated on workstation # [id number]
--- NOTE | 2018-05-26 14:40 | Diagnostic Imaging Report ---
INDICATION: Syncope. EXAMINATION: Frontal chest at 01:49 p.m. FINDINGS: There is cardiomegaly. There is poor inspiration. There is no definite infiltrate or pneumothorax or pleural fluid. IMPRESSION: Cardiomegaly and poor inspiration. No focal infiltrate or pneumothorax or pleural fluid. Dictated by: Dictated on workstation # [id number]
--- NOTE | 2018-05-26 16:59 | NUR ---
This RN received phone call stating patient was down in administration hallway looking for ride home. This RN to retrieve patient, patient assisted back to ED. Pt verbalizing that he was cold and ready to go home and wishes to leave at this time. Pt asking for IV to be Dc'd. IV dc'd from R AC at this time. Pt assisted to discharge area and waiting room. Pt waiting for sister to arrive for ride home. Brianna VÁZQUEZ and Dr Shahid notified of situation.
--- NOTE | 2018-05-26 17:13 | NUR ---
Patient advised he is ready to go home. Pt. IV was taken out per Thony Snider RN. Pt. was assisted out to the waiting room and is awaiting arrival for his sister.
== END 2018-05-26 17:13 | disposition left against medical advice (07) ==
LOC: EDUNIT# 13:17 → ER 13:18
DX: R42 Dizziness and giddiness (principal); Z79.82 Long term (current) use of aspirin; Z90.89 Acquired absence of other organs; Z87.19 Personal history of other diseases of the digestive system
CPT/HCPCS: 36415; 70450; 71045; 80053; 83735; 83874; 83880; 84484; 85007; 85027; 85610; 85730; 93005; 93041

== ENCOUNTER → 2019-03-26 | Outpatient (CLI) | payer MEDICARE ==
[2019-03-26 15:43] LABS: BASOPHILS % (AUTO) 0 % (0-10); EOSINOPHILS % (AUTO) 1 % (0-10); HEMATOCRIT 34 % (40-54); LYMPHOCYTES # (AUTO) 0.8 X 10^3 (1.0-4.0); LYMPHOCYTES % (AUTO) 29 % (12-44); MEAN CORPUSCULAR HEMOGLOBIN 34 PG (25-34); MEAN CORPUSCULAR HGB CONC 32 G/DL (32-36); MEAN CORPUSCULAR VOLUME 104 FL (80-99); MEAN PLATELET VOLUME 10.5 FL (7.4-10.4); MONOCYTES # (AUTO) 1.1 X 10^3 (0.0-1.0); MONOCYTES % (AUTO) 38 % (0-12); NEUTROPHILS % (AUTO) 33 % (42-75); PLATELET COUNT 142 10^3/uL (130-400); RED CELL DISTRIBUTION WIDTH 13.9 % (10.0-14.5); WHITE BLOOD COUNT 2.9 10^3/uL (4.3-11.0)
[2019-03-26 16:08] LABS: ALBUMIN 4.3 GM/DL (3.2-4.5); BILIRUBIN,TOTAL 0.5 MG/DL (0.1-1.0); CREATININE SERUM 1.22 MG/DL (0.60-1.30); POTASSIUM 4.2 MMOL/L (3.6-5.0); TOTAL PROTEIN 7.1 GM/DL (6.4-8.2)
[2019-03-26 16:41] LABS: LYMPHOCYTES % (MANUAL) 35 %; MONOCYTES % (MANUAL) 34 %; NEUTROPHILS % (MANUAL) 30 %
[2019-03-26 16:42] LABS: ANISOCYTOSIS SLIGHT; EOSINOPHILS % (MANUAL) 1 %; HYPOCHROMASIA SLIGHT; POIKILOCYTOSIS SLIGHT
== END ==
LOC: LAB 15:12
PROVIDERS: ATTEND Nurse Practitioner Family
DX: B37.0 Candidal stomatitis (principal); K14.8 Other diseases of tongue; R13.10 Dysphagia, unspecified
CPT/HCPCS: 36415; 80053; 82607; 82728; 83540; 84443; 85007; 85027; 86038; 86039

== ENCOUNTER → 2019-09-27 | Outpatient (CLI) | payer MEDICARE ==
--- NOTE | 2019-09-27 17:05 | Diagnostic Imaging Report ---
EXAMINATION: Right shoulder 2 or more views HISTORY: Decreased range of motion. COMPARISON: None available. 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 No acute fracture is seen. There is a subacromial spur. No fracture is seen. IMPRESSION: 1. Mild acromioclavicular and glenohumeral joint osteoarthritis with subacromial spur. Dictated by: Dictated on workstation # [id number]
== END ==
LOC: RAD FS 16:39
PROVIDERS: ATTEND Nurse Practitioner Family
DX: M25.511 Pain in right shoulder (principal); M25.611 Stiffness of right shoulder, not elsewhere classified; W19.XXXA Unspecified fall, initial encounter; M19.011 Primary osteoarthritis, right shoulder; M77.9 Enthesopathy, unspecified
CPT/HCPCS: 73030

== ENCOUNTER 2019-10-16 16:59 | Emergency (ER) | payer MEDICARE ==
[~2019-10-16] VITALS: Ht 167.7 cm; Wt 94.4 kg
--- NOTE | 2019-10-16 17:20 | ED Lower Extremity ---
General Chief Complaint: Lower Extremity Stated Complaint: RIGHT LEG NUMBNESS Nursing Triage Note: Patient reports he has had intermittent numbness and tingling in his right lower leg for several weeks. States he saw Jairo Lancaster APRN, and a cyst was found on the back of his knee. Patient states the cyst "disappeared" and was not drained. Nursing Sepsis Screen: No Definite Risk Source: patient Exam Limitations: no limitations History of Present Illness Date Seen by Provider: Oct 16, 2019 Time Seen by Provider: 17:17 Initial Comments 83-year-old male presents with intermittent right lower leg numbness and tingling. States that he's had it for the past couple months. At one time he did see someone at a walk-in clinic and had x-rays done of his knee. Also in the past was told he had a cyst behind his knee, but it went away. Denies any swelling of his leg, any skin changes or any significant pain. Able to walk without any weakness. And at this point states that the numbness is essentially gone away from this morning. Allergies and Home Medications Allergies Uncoded Allergies: ASHLIE (Allergy, Severe, 05/26/18) Home Medications Acetaminophen 325 Mg Tablet, 650 MG PO Q4H, (Reported) Aspirin 81 Mg Tablet.dr, 162 MG PO DAILY, (Reported) Patient Home Medication List Home Medication List Reviewed: Yes Review of Systems Constitutional: No dizziness, No fever, No malaise, No weakness, No weight gain Respiratory: No cough, No short of breath Cardiovascular: No chest pain, No edema, No palpitations Musculoskeletal: see HPI; No back pain, No joint pain, No joint swelling, No muscle pain, No muscle stiffness, No muscle cramps, No muscle twitching, No muscle weakness, No neck pain Psychiatric/Neurological: Denies Headache; Numbness; Denies Paresthesia; Tingling; Denies Tremors, Denies Weakness Past Cufnxle-Taiowo-Dcweox Hx Past Med/Social Hx: Reviewed Nursing Past Med/Soc Hx Patient Social History Alcohol Beverage of Choice: Beer Recent Foreign Travel: No Contact w/Someone Who Travel: No Recent Infectious Disease Expo: No Recent Hopitalizations: No Seasonal Allergies Seasonal Allergies: No Past Medical History 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 pylori) Musculoskeletal: No Endocrine: No Cancer: No Psychosocial: No Integumentary: No Blood Disorders: No Family Medical History No Pertinent Family Hx Physical Exam Vital Signs Vital Signs - First Documented 10/16/19 17:02 Temp 36.4 Pulse 76 Resp 14 B/P (MAP) 124/99 (107) Pulse Ox 98 O2 Delivery Room Air Capillary Refill : Less Than 3 Seconds Height, Weight, BMI Height: 5'7.00" Weight: 200lbs. 0.0oz. 90.035542sd; 33.00 BMI Method:Stated General Appearance: WD/WN, no apparent distress Hips: bilateral hip non-tender, bilateral hip normal inspection, bilateral hip normal range of motion Legs: bilateral leg non-tender, bilateral leg normal inspection, bilateral leg normal range of motion, bilateral leg no evidence of injury Knees: bilateral knee non-tender, bilateral knee normal inspection, bilateral knee normal range of motion, bilateral knee no evidence of injury Ankles: bilateral ankle non-tender, bilateral ankle normal inspection, bilateral ankle normal range of motion, bilateral ankle no evidence of injury Feet: bilateral foot non-tender, bilateral foot normal inspection, bilateral foot normal range of motion, bilateral foot no evidence of injury Neurologic/Tendon: normal sensation, normal motor functions, responds to pain Neurologic/Psychiatric: no motor/sensory deficits, alert, normal mood/affect Skin: normal color, warm/dry Lymphatic: no adenopathy Progress/Results/Core Measures Results/Orders Vital Signs/I&O 10/16/19 17:02 Temp 36.4 Pulse 76 Resp 14 B/P (MAP) 124/99 (107) Pulse Ox 98 O2 Delivery Room Air Blood Pressure Mean: 107 Departure Impression Primary Impression: Paresthesia and pain of right extremity Disposition: 01 HOME, SELF-CARE Condition: Stable Departure-Patient Inst. Decision time for Depature: 17:20 Referrals: NO,LOCAL PHYSICIAN (PCP/Family) Primary Care Physician Patient Instructions: Paresthesias (DC) Add. Discharge Instructions: See her primary care doctor in 2 weeks if not improving, sooner if worse. All discharge instructions reviewed with patient and/or family. Voiced understanding. IZAIAH KAUR DO Oct 16, 2019 17:20
[2019-10-16 17:43] VITALS: BP 134/78
--- OUTSIDE RECORDS SUMMARY | 2019-10-16 22:12 | XMS REPORT ---
Author Author Catracho COTTER Organization [employer] Address Unknown Phone Unavailable Care Team Providers Care Credit Professional Name Role Phone RENATE COTTER CP Unavailable Allergies No Known Allergies Problems Problem Type Condition Code Onset Dates Condition Statu s Problem H/O esophagogastroduodenoscopy V15.29 Active Medications No Known Medications Results No Known Results Summary Purpose [employer] Submission
--- OUTSIDE RECORDS SUMMARY | 2019-10-16 22:12 | XMS REPORT ---
Author Author Catracho Martinez [facility] Address [address] [place], [place] [id number] Care Team Providers Care Agricultural Technician Name Role Phone Liu Martinez PCP Allergies and Adverse Reactions Name Reaction Notes Bee Stings Plan of Treatment Not available. Medications Active Name Start Date Estimated Completion Date SIG Co mments Aspir-81 81 mg oral tablet,delayed release (DR/EC) take 2 tablets (162 mg) by oral route once daily ibuprofen 200 mg oral capsule ta ke 1 capsule (200 mg) by oral route every 6 hours as needed Problem List Not available. Vital Signs Date Time BP-Sys(mm[Hg] BP-Nevaeh(mm[Hg]) HR(bpm) RR(rpm) Temp WT HT HC BMI BSA BMI Percentile O2 Sat(%) 08/02/2017 1:43:00 PM 134 mmHg 82 mmHg 78 bpm 18 rpm 97.9 F 207 lbs 67 in 32.4205 kg/m 2.1068 m 97 % 08/02/2017 1:43:00 PM 134 mmHg 82 mmHg 78 bpm 18 rpm 97.9 F 207 lbs 67 in 32.4205 kg/m 2.1068 m 97 % 07/28/2017 11:30:00 AM 162 mmHg 80 mmHg 84 bpm 18 rpm 98.2 F 213 lbs 99 % Social History Name Description Comments Tobacco Never smoker Alcohol Never History of Procedures Not available. Results Summary Not available. History Of Immunizations Not available. History of Past Illness Name Date of Onset Comments Encounter for examination following treatment at hospital De y 2017 11:31AM Acute abdomen Jul 28 2017 11:31AM Blood in stool Jul 28 2017 11:31AM Payers Insurance Name Company Name Plan Name Plan Number Policy Number Luan cy Group Number Start Date Medicare [facility] Medicare C [id number] N/A [facility] Prog - RHC [facility] Prog - C [id number] N/A Medicare Part A Medicare - Lab/Xray [id number] N/A History of Encounters Visit Date Visit Type Provider 08/02/2017 Office visit Liu Martinez MD 07/28/2017 Office visit LIU REDDY
--- OUTSIDE RECORDS SUMMARY | 2019-10-16 22:12 | XMS REPORT ---
Author Author Catracho MENDOSA Organization [facility] Address Unknown Care Team Providers Care Family And Divorce Legal Assistant Name Role Phone DEONDRE RUKHSANA Unavailable PROBLEMS Type Condition ICD9-CM Code [id number] Code Onset Dates Condition S tatus SNOMED Code Problem H/O esophagogastroduodenoscopy V15.29 Active 271988620 ALLERGIES Substance Reaction Event Type Date Status Aspirin Unknown Drug Allergy Mar, Active Bee Stings nausea and vomiting Non Drug Allergy Mar, Acti ve SOCIAL HISTORY No smoking Hx information available PLAN OF CARE Activity Details Follow Up prn Reason:refer to Dr Colin VITAL SIGNS Blood pressure systolic 148 mmHg 2016-04-07 Blood pressure diastolic 52 mmHg 2016-04-07 MEDICATIONS Medication Instructions Dosage Frequency Start Date End Date Duration S tatus Aspirin 81 MG Orally Once a day 1 tablet 24h Active Aleve 220 MG Orally every 12 hrs 1 tablet as needed 12h Active RESULTS No Results PROCEDURES Procedure Date Ordered Related Diagnosis Body Site LTD ORAL EVALUATION - PROBLEM FOCUS Apr 07, 2016 IMMUNIZATIONS No Known Immunizations
--- OUTSIDE RECORDS SUMMARY | 2019-10-16 22:12 | XMS REPORT ---
Author Author Catracho DENTON [facility] Address [address] [place], [place] [address] Care Team Providers Care Country Director Name Role Phone BOLA DENTON PCP Allergies and Adverse Reactions Not available. Plan of Treatment Not available. Medications Not available. Problem List Not available. Vital Signs Date Time BP-Sys(mm[Hg] BP-Nevaeh(mm[Hg]) HR(bpm) RR(rpm) Temp WT HT HC BMI BSA BMI Percentile O2 Sat(%) 07/28/2017 11:30:00 AM 162 mmHg 80 mmHg 84 bpm 18 rpm 98.2 F 213 lbs 99 % Social History Not available. History of Procedures Not available. Results Summary Not available. History Of Immunizations Not available. History of Past Illness Not available. Payers Insurance Name Company Name Plan Name Plan Number Policy Number Luan cy Group Number Start Date Medicare RH Medicare RHC [id number] N/A [employer] - [employer] - RH C [id number] N/A Medicare Part A Medicare - Lab/Xray [id number] N/A History of Encounters Visit Date Visit Type Provider 07/28/2017 Office visit BOLA REDDY
--- OUTSIDE RECORDS SUMMARY | 2019-10-16 22:12 | XMS REPORT ---
Author Author Catracho COTTER [facility] Address [address] [place] [address] Care Team Providers Care Pvc Monitor Name Role Phone RENATE COTTER Unavailable PROBLEMS Type Condition ICD9-CM Code [id number] Code Onset Dates Condition S tatus SNOMED Code Problem H/O esophagogastroduodenoscopy V15.29 Active [id number] ALLERGIES No Information SOCIAL HISTORY Never Assessed PLAN OF CARE VITAL SIGNS MEDICATIONS No Known Medications RESULTS No Results PROCEDURES No Known procedures IMMUNIZATIONS No Known Immunizations MEDICAL (GENERAL) HISTORY Type Description Date Surgical History EGD Surgical History tonsillectomy Surgical History tumor removal from neck Surgical History colonoscopy 12/05/2013 Hospitalization History Bee sting-allergic reaction
--- OUTSIDE RECORDS SUMMARY | 2019-10-16 22:12 | XMS REPORT ---
Author Author Catracho COTTER Organization [employer] Address Unknown Phone Unavailable Care Team Providers Care Bisque Placer Name Role Phone RENATE COTTER CP Unavailable Allergies No Known Allergies Problems Problem Type Condition Code Onset Dates Condition Statu s Problem H/O esophagogastroduodenoscopy V15.29 Active Medications No Known Medications Results No Known Results Summary Purpose [employer] Submission
--- OUTSIDE RECORDS SUMMARY | 2019-10-16 22:12 | XMS REPORT ---
Author Author Catracho SANDHU [facility] Address [address] [place] [address] Care Team Providers Care Quality Engineer Name Role Phone JOSÉ SANDHU Unavailable PROBLEMS Type Condition ICD9-CM Code ZNT29-DF Code Onset Dates Condition S tatus SNOMED Code Problem H/O esophagogastroduodenoscopy V15.29 Active [id number] ALLERGIES No Information ENCOUNTERS Encounter Location Date Diagnosis [facility] [address] [id number] [address] [place] [phone] Apr, [facility] [address] [id number] [address] [place] [address] [phone] Mar, Dental caries K02.9 [facility] [address] [facility] [id number] [address] [place] [address] [phone] Mar, Dental examination Z01.20 [facility] [address] [facility] [id number] [place] [address] [phone] Mar, Dental examination Z01.20 [facility] [address] [facility] [id number] [place] [address] [phone] Mar, [facility] [address] [facility] [id number] [address] [place] [address] [phone] Mar, Dental examination Z01.20 [facility] [address] [id number] [address] [place] [phone] Mar, [facility] [id number] [place] [phone] Nov, [facility] [address] [id number] [address] [place] [phone] Oct, Generalized abdominal pain R 10.84 [facility] [address] [id number] [address] [place] [phone] Oct, [facility] [address] [id number] [address] [place] [phone] July, Retractile mesenteritis K65. 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 [facility] [address] [id number] [address] [place] [phone] May, Establishing care with onofre orozco, encounter for Z71.89 and Irritable bowel K58.9 [facility] [address] [id number] [address] [place] [phone] May, Candidal stomatitis B37.0 IMMUNIZATIONS No Known Immunizations SOCIAL HISTORY Never Assessed REASON FOR VISIT [facility] DIRECT[facility] OF BUSINESS OPERATIONS PLAN OF CARE VITAL SIGNS MEDICATIONS Medication Instructions Dosage Frequency Start Date End Date Duration S tatus Aspirin 81 MG Orally Once a day 1 tablet 24h Unknown Aleve 220 MG Orally every 12 hrs 1 tablet as needed 12h Unknown Bentyl 20 mg Orally 2 times a day 1 tablet 12h May, Unknown Carbamide Peroxide 6.5 % Unknown Pepto-Bismol 262 MG Orally 8 time(s) a day 2 tablets as needed Unknown Clarithromycin 500 MG Orally 3 times a day 1 tablet 8h Unknown Lansoprazole 30 MG Orally twice a day 1 capsule 12h Unknown Amoxicillin 500 MG Orally 3 times a day 1 capsule 8h Unknown RESULTS No Results PROCEDURES No Known procedures INSTRUCTIONS MEDICATIONS ADMINISTERED No Known Medications MEDICAL (GENERAL) HISTORY Type Description Date Medical History 2013 stomach issues Surgical History EGD Surgical History tonsillectomy Surgical History tumor removal from neck Surgical History colonoscopy 12/05/2013 Hospitalization History Bee sting-allergic reaction
--- OUTSIDE RECORDS SUMMARY | 2019-10-16 22:12 | XMS REPORT ---
Author Author Catracho COTTER Organization [facility] Address [address] [place] [address] Care Team Providers Care Car Sales Consultant Name Role Phone RENATE COTTER Unavailable PROBLEMS Type Condition ICD9-CM Code [id number] Code Onset Dates Condition S tatus SNOMED Code Problem H/O esophagogastroduodenoscopy V15.29 Active [id number] Assessment Generalized abdominal pain R10.84 Oct, Active 916585308 ALLERGIES Substance Reaction Event Type Date Status Bee Stings nausea and vomiting Non Drug Allergy Oct, Acti ve SOCIAL HISTORY No smoking Hx information available PLAN OF CARE VITAL SIGNS Height 67 in 2015-11-26 Weight 211.9 lbs 2015-11-26 Heart Rate 76 bpm 2015-11-26 Respiratory Rate 20 2015-11-26 BMI 33.18 kg/m2 2015-11-26 Blood pressure systolic 118 mmHg 2015-11-26 Blood pressure diastolic 68 mmHg 2015-11-26 MEDICATIONS Medication Instructions Dosage Frequency Start Date End Date Duration S tatus Aspirin 81 MG Orally Once a day 1 tablet 24h Active Aleve 220 MG Orally every 12 hrs 1 tablet as needed 12h Active RESULTS No Results PROCEDURES Procedure Date Ordered Related Diagnosis Body Site [facility] VISIT ESTABLISHED PATIENT Nov 26, 2015 Office Visit, Est Pt., Level 3 Nov 26, 2015 IMMUNIZATIONS No Known Immunizations
--- OUTSIDE RECORDS SUMMARY | 2019-10-16 22:12 | XMS REPORT ---
Author Author Catracho MENDOSA Organization [facility] Address Unknown Care Team Providers Care Supervisor Rose Grading Name Role Phone RUKHSANA MENDOSA Unavailable PROBLEMS Type Condition ICD9-CM Code HDL01-TA Code Onset Dates Condition S tatus SNOMED Code Problem H/O esophagogastroduodenoscopy V15.29 Active [id number] ALLERGIES Substance Reaction Event Type Date Status Bee Stings nausea and vomiting Non Drug Allergy Mar, Acti ve ENCOUNTERS Encounter Location Date Diagnosis [facility] [address] [facility] [id number] [address] [place] [phone] Apr, [facility] [address] [id number] [address] [place] [address] [phone] Mar, Dental caries K02.9 [facility] [address] [facility] [id number] [address] [place] [address] [phone] Mar, Dental examination Z01.20 [facility] [address] [facility] [id number] [phone] Mar, Dental examination Z01.20 [facility] [address] [facility] [id number] [place] [address] [phone] Mar, [facility] [address] [facility] [id number] [address] [place] [address] [phone] Mar, Dental examination Z01.20 [facility] [address] [facility] [id number] [address] [place] [phone] Mar, [facility] [address] [facility] [id number] [address] [place] [phone] Nov, [facility] [address] [facility] [id number] [address] [place] [phone] Oct, Generalized abdominal pain R 10.84 [facility] [address] [facility] [id number] [address] [place] [phone] Oct, [facility] [address] [facility] [id number] [address] [place] [phone] July, Retractile mesenteritis K65. 4 [facility] [address] 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 [id number] [address] [place] [phone] May, Establishing care with onofre orozco, encounter for Z71.89 and Irritable bowel K58.9 [facility] [address] [facility] [id number] [address] [place] [phone] May, Candidal stomatitis B37.0 IMMUNIZATIONS No Known Immunizations SOCIAL HISTORY Never Assessed REASON FOR VISIT chris PLAN OF CARE Activity Details Follow Up prn Reason:Ext # 30 Root tip s VITAL SIGNS MEDICATIONS Medication Instructions Dosage Frequency Start Date End Date Duration S tatus Amoxicillin 500 MG Orally 3 times a day 1 capsule 8h Not-Taking Clarithromycin 500 MG Orally 3 times a day 1 tablet 8h Not-Taking Clotrimazole Active Aspirin 325 MG Orally Once a day 1 tablet 24h Active Bentyl 20 mg Orally 2 times a day 1 tablet 12h May, Not-Taking Amoxicillin 500 mg Orally 3 times a day 1 capsule 8h 10 day(s) Active Lansoprazole 30 MG Orally twice a day 1 capsule 12h Not-Taking Carbamide Peroxide 6.5 % Not-Taking Aleve 220 MG Orally every 12 hrs 1 tablet as needed 12h Active Pepto-Bismol 262 MG Orally 8 time(s) a day 2 tablets as needed Active RESULTS No Results PROCEDURES Procedure Date Ordered Result Body Site LTD ORAL EVALUATION - PROBLEM FOCUS Apr 06, 2017 INSTRUCTIONS MEDICATIONS ADMINISTERED No Known Medications MEDICAL (GENERAL) HISTORY Type Description Date Medical History 2013 stomach issues Surgical History EGD Surgical History tonsillectomy Surgical History tumor removal from neck Surgical History colonoscopy 12/05/2013 Hospitalization History Bee sting-allergic reaction
--- OUTSIDE RECORDS SUMMARY | 2019-10-16 22:12 | XMS REPORT ---
Author Author Catracho MARTÍNEZ [facility] Address [address] [place] [address] Care Team Providers Care Cfa Name Role Phone ALEXANDRE MARTÍNEZ Unavailable PROBLEMS Type Condition ICD9-CM Code RKP30-OG Code Onset Dates Condition S tatus SNOMED Code Problem H/O esophagogastroduodenoscopy V15.29 Active 720138336 ALLERGIES Substance Reaction Event Type Date Status Bee Stings nausea and vomiting Non Drug Allergy Mar, Acti ve ENCOUNTERS Encounter Location Date Diagnosis [facility] [address] [id number] [address] [place] [phone] Apr, [facility] [address] [id number] [address] [place] [address] [phone] Mar, Dental caries K02.9 [facility] [address] [id number] [address] [place] [address] [phone] Mar, Dental examination Z01.20 [facility] [address] [facility] [id number] [place] [address] [phone] Mar, Dental examination Z01.20 [facility] [address] [facility] [id number] [place] [address] [phone] Mar, [facility] [address] [id number] [address] [place] [address] [phone] Mar, Dental examination Z01.20 [facility] [address] [id number] [address] [place] [phone] Mar, [facility] [address] [id number] [address] [place] [phone] Nov, [facility] [address] [id number] [address] [place] [phone] Oct, Generalized abdominal pain R 10.84 [facility] [address] [id number] [address] [place] [phone] Oct, [facility] [address] [id number] [address] [place] [phone] July, Retractile mesenteritis K65. 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 michael currie received VITAL SIGNS Height 67 in 2017-04-05 Blood pressure systolic 102 mmHg 2017-04-05 Blood pressure diastolic 70 mmHg 2017-04-05 MEDICATIONS Medication Instructions Dosage Frequency Start Date End Date Duration S tatus Aleve 220 MG Orally every 12 hrs 1 tablet as needed 12h Active Aspirin 325 MG Orally Once a day 1 tablet 24h Active Bentyl 20 mg Orally 2 times a day 1 tablet 12h May, Not-Taking Clarithromycin 500 MG Orally 3 times a day 1 tablet 8h Not-Taking Pepto-Bismol 262 MG Orally 8 time(s) a day 2 tablets as needed Active Carbamide Peroxide 6.5 % Not-Taking Amoxicillin 500 MG Orally 3 times a day 1 capsule 8h Not-Taking Lansoprazole 30 MG Orally twice a day 1 capsule 12h Not-Taking Amoxicillin 500 mg Orally 3 times a day 1 capsule 8h 10 day(s) Active RESULTS No Results PROCEDURES Procedure Date Ordered Result Body Site LTD ORAL EVALUATION - PROBLEM FOCUS Apr 05, 2017 INTRAORL-PERIAPICAL 1 FILM [id number] Apr 05, 2017 PANORAMIC FILM SEE ALSO CODE 32228 Apr 05, 2017 INSTRUCTIONS MEDICATIONS ADMINISTERED No Known Medications MEDICAL (GENERAL) HISTORY Type Description Date Medical History 2013 stomach issues Surgical History EGD Surgical History tonsillectomy Surgical History tumor removal from neck Surgical History colonoscopy 12/05/2013 Hospitalization History Bee sting-allergic reaction
--- OUTSIDE RECORDS SUMMARY | 2019-10-16 22:12 | XMS REPORT ---
Author Author Catracho PANG Organization [facility] Address [address] [place] [address] Care Team Providers Care Manager Hospital Name Role Phone SCOTTY PANG Unavailable PROBLEMS Type Condition ICD9-CM Code JLL87-GL Code Onset Dates Condition S tatus SNOMED Code Problem H/O esophagogastroduodenoscopy V15.29 Active 638490218 ALLERGIES No Information ENCOUNTERS Encounter Location Date Diagnosis [facility] [address] [id number] [address] [place] [phone] Apr, [facility] [address] [id number] [address] [place] [address] [phone] Mar, Dental caries K02.9 [facility] [address] [id number] [address] [place] [address] [phone] Mar, Dental examination Z01.20 [facility] [id number] [place] [address] [phone] Mar, Dental examination Z01.20 [facility] [address] [id number] [place] [address] [phone] Mar, [facility] [address] [id number] [address] [place] [address] [phone] Mar, Dental examination Z01.20 [facility] [address] [id number] [address] [place] [phone] Mar, [facility] [address] [id number] [address] [place] [phone] Nov, [facility] [address] [id number] [address] [place] [phone] Oct, Generalized abdominal pain R 10.84 [facility] [address] [facility] [id number] [address] [place] [phone] Oct, [facility] [address] [facility] [id number] [address] [place] [phone] July, Retractile mesenteritis K65. 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 [facility] [address] [facility] [id number] [address] [place] [phone] May, Establishing care with onofre orozco, encounter for Z71.89 and Irritable bowel K58.9 [facility] [address] [facility] [id number] [address] [place] [phone] May, Candidal stomatitis B37.0 IMMUNIZATIONS No Known Immunizations SOCIAL HISTORY Never Assessed REASON FOR VISIT PLAN OF CARE VITAL SIGNS MEDICATIONS Medication Instructions Dosage Frequency Start Date End Date Duration S tatus Pepto-Bismol 262 MG Orally 8 time(s) a day 2 tablets as needed Unknown Amoxicillin 500 mg Orally 3 times a day 1 capsule 8h 10 day(s) Unknown Clotrimazole Unknown Lansoprazole 30 MG Orally twice a day 1 capsule 12h Unknown Aleve 220 MG Orally every 12 hrs 1 tablet as needed 12h Unknown Bentyl 20 mg Orally 2 times a day 1 tablet 12h May, Unknown Carbamide Peroxide 6.5 % Unknown Aspirin 325 MG Orally Once a day 1 tablet 24h Unknown Amoxicillin 500 MG Orally 3 times a day 1 capsule 8h Unknown Clarithromycin 500 MG Orally 3 times a day 1 tablet 8h Unknown RESULTS No Results PROCEDURES No Known procedures INSTRUCTIONS MEDICATIONS ADMINISTERED No Known Medications MEDICAL (GENERAL) HISTORY Type Description Date Medical History 2013 stomach issues Surgical History EGD Surgical History tonsillectomy Surgical History tumor removal from neck Surgical History colonoscopy 12/05/2013 Hospitalization History Bee sting-allergic reaction
--- OUTSIDE RECORDS SUMMARY | 2019-10-16 22:12 | XMS REPORT ---
Author Author Catracho Martinez [facility] Address [address] [place], [place] [address] Care Team Providers Care Product Control And Logistics Analyst Name Role Phone Liu Martinez PCP Allergies [...] oral route every 6 hours as needed pantoprazole 40 mg oral tablet,delayed release (DR/EC) take 1 tablet (40 mg) by oral route once daily Problem List Not available. Vital Signs Date [...] Comments Encounter for examination following treatment at [facility] y 2017 11:31AM Acute abdomen Jul 28 2017 11:31AM Blood in stool Jul 28 2017 11:31AM Abdominal Pain Aug 02 2017 1:54PM Payers Insurance Name Company Name Plan Name Plan Number Policy Number Luan cy Group Number Start Date [facility] [id number] Monday, 2017 [facility] Asst Prog - RHC [facility] Asst Prog - RH C [id number] N/A Medicare Part A Medicare - Lab/Xray [id number] N/A Medicare RHC Medicare RHC [id number] TueDecember 26, 2000 History of Encounters Visit Date Visit Type Provider 08/02/2017 Office visit Liu Martinez MD 07/28/2017 Office visit LIU REDDY
--- OUTSIDE RECORDS SUMMARY | 2019-10-16 22:13 | XMS REPORT | Continuity of Care Document ---
Author Organization Unknown Address Unknown Phone Unavailable Allergies Active Description Code Type Severity Reaction Onset Reported/Identified Relationship to Patient Clinical Status Yes NO KNOWN DRUG ALLERGIES UNKNOWN NO KNOWN DRUG ALLERG Yes NO KNOWN DRUG ALLERGIES UNKNOWN UNKNOWN Yes No Known Drug Allergies [id number] Drug Allergy Unknown N/A 10/06/2015 Yes BEES BEES Severe N/A 05/26/2018 Medications Medication Packaging Start Date St op Date Route Dosage Sig KETOROLAC VIAL INJ 15 MG/CC (TORADOL VIAL) MG 05/11/2017 05/11/2017 ONCE&1101 METHYLPREDNISOLONE VIAL INJ 40 MG/CC (DEPO-MEDROL VIAL) MG 05/11/2017 05/11/2017 ONCE&1101 NORMAL SALINE 1000CC IV BAG INJ 0.9 % (NS 1000CC IV BAG) ml 03/24/2019 03/24/2019 ONCE&0835 ACETAMINOPHEN TAB 500 MG (TYLENOL) MG 06/05/2019 06/05/2019 ONCE&2254 ALBUTEROL SVN 2.5MG/3CC LIQ 2.5 MG (PROVENTIL SENG 2.5MG/3CC) MG 06/05/2019 06/05/2019 ONCE&2345 Normal Saline 1000cc W/KCl 20mEq ml 06/05/2019 06/12/2019 CONTINUOUSEVERY 0 Hour ACETAMINOPHEN ORAL TABLET 325mg(Tylenol) MG 06/05/2019 07/05/2019 PRN EVERY 6 Hour ONDANSETRON VIAL INJ 4 MG/2CC (ZOFRAN 2CC VIAL) MG 06/05/2019 06/12/2019 PRN Q6H Normal SALINE 0.9 % (NS 100cc) (plain bag) ml 06/06/2019 06/06/2019 ONCE&0014 Normal SALINE 0.9 % (NS 100cc) (plain bag) ml 06/06/2019 06/06/2019 ONCE&0130 ALBUTEROL SVN 2.5MG/3CC LIQ 2.5 MG (PROVENTIL SENG 2.5MG/3CC) MG 06/06/2019 06/12/2019 Q4H&0200,0600,1000,1400,1800 ,2200 Normal SALINE 0.9 % (NS 100cc) (plain bag) ml 06/06/2019 06/12/2019 Q8H&0130,0930,1730 FAMOTIDINE TAB 20 MG (PEPCID) MG 06/06/2019 06/12/2019 BID&0800,2000 POTASSIUM CHLORIDE TAB 10 MEQ (K-DUR) MEQ 06/06/2019 07/05/2019 BID&0900,2100 ENOXAPARIN SYRINGE INJ 40 MG (LOVENOX SYRI NGE) MG 06/06/2019 06/15/2019 Daily&0900 NORMAL SALINE 250CC IV BAG I NJ 0.9 % (NS 250CC IV BAG) ml 06/06/2019 06/12/2019 EVERY 24 Hour&0900 PANTOPRAZOLE TAB 20 MG (PROTONIX) MG 06/06/2019 06/12/2019 Daily&0900 METHYLPREDNISOLONE VIAL INJ 40 MG/CC (SOLU-MEDROL VIAL) MG 06/06/2019 06/10/2019 BID&0900,2100 Piperacillin-tazobactam 3.37 5 Gm IV recon soln (Zosyn) GM 06/06/2019 06/13/2019 Q8H&0130,0930,1730 ASPIRIN ENTERIC COATED TAB 8 1 MG (BABY ASPIRIN EC) MG 06/06/2019 06/12/2019 Daily&0900 FLUTICASONE NASAL INHALER I 50 MCG (FLONASE NOSE SPRAY) PUFF(S) 06/06/2019 06/12/2019 Daily&0900 AMLODIPINE TAB 2.5 MG (NORVASC) MG 06/06/2019 06/12/2019 Daily&0900 CETIRIZINE TAB 10 MG (ZYRTEC) MG 06/06/2019 07/05/2019 Daily&0900 DONEPEZIL TAB 10 MG (ARICEPT) MG 06/06/2019 06/11/2019 Daily&0900 ACETAMINOPHEN ORAL TABLET 325mg(Tylenol) MG 06/06/2019 07/06/2019 BID&0800,2000 LORAZEPAM 1CC VIAL INJ 2 MG/CC (ATIVAN VIA L) MG 06/07/2019 06/07/2019 PRN ONCE ACETAMINOPHEN ORAL TABLET 325mg(Tylenol) MG 06/07/2019 07/07/2019 PRN EVERY 6 Hour ACETAMINOPHEN SUPPOS SUP 650 MG (TYLENOL) MG 06/07/2019 06/14/2019 PRN Q4H ALUM/MAG/SIMETH 30CC LIQ (MYLANTA PLUS) cc 06/07/2019 06/17/2019 PRN Q4H GUAIFENESIN - DM LIQ (ROBITUSSIN DM) MLS 06/07/2019 06/14/2019 PRN Q4H CLONIDINE TAB 0.1 MG (CATAPRES) MG 06/07/2019 06/14/2019 PRN Q6H ONDANSETRON VIAL INJ 4 MG/2CC (ZOFRAN 2CC VIAL) MG 06/07/2019 06/14/2019 PRN Q6H CALCIUM CARBONATE TAB 500 MG (TUMS) MG 06/07/2019 06/14/2019 PRN Q6H DIPHENHYDRAMINE CAP 25 MG (BENADRYL) MG 06/07/2019 06/14/2019 PRN Q6H HYDROCODONE/APAP 5MG/325MG T AB 5 MG/325MG (KY-TAB 5/325) TAB 06/07/2019 06/17/2019 PRN Q6H ALPRAZOLAM TAB 0.25 MG (XANAX) MG 06/07/2019 06/17/2019 PRN Q6H HALOPERIDOL VIAL INJ 5 MG/CC (HALDOL 1CC V IAL) MG 06/07/2019 06/14/2019 PRN Q8H Docusate sodium 100mg oral capsule (COLACE ) MG 06/07/2019 07/07/2019 PRN BID LACTULOSE SYRUP LIQ 20 GM/30 CC (CHRONULAC SYRUP) GM 06/07/2019 07/07/2019 BID&0800,2000 MELATONIN TAB 3 MG (MELATONIN) MG 06/07/2019 07/06/2019 PRN QHS CEFDINIR CAP 300 MG (OMNICEF) MG 06/08/2019 06/10/2019 BID&0800,2000 BISACODYL TAB 5 MG (DULCOLAX) MG 06/08/2019 06/14/2019 PRN Daily POLYETHYLENE GLYCOL POWDER U D PWD (MIRALAX 17GM UNIT DOSE PAKS) gm 06/08/2019 06/14/2019 Daily&0900 BISACODYL SUPPOS 10 MG (DULCOLAX SUPPOS) MG 06/08/2019 06/14/2019 PRN Daily MILK OF MAGNESIA LIQ ml 06/08/2019 07/07/2019 PRN Daily POLYETHYLENE GLYCOL POWDER U D PWD (MIRALAX 17GM UNIT DOSE PAKS) gm 06/08/2019 06/18/2019 PRN Q3H ALUM/MAG/SIMETH 30CC LIQ (MYLANTA PLUS) cc 06/08/2019 06/18/2019 PRN Q4H IBUPROFEN TAB 400 MG (MOTRIN) MG 06/08/2019 06/08/2019 ONCE&1900 CEFDINIR CAP 300 MG (OMNICEF) MG 06/08/2019 06/11/2019 BID&0800,2000 ACETAMINOPHEN ORAL TABLET 325mg(Tylenol) MG 06/08/2019 07/08/2019 BID&0800,2000 LACTULOSE SYRUP LIQ 20 GM/30 CC (CHRONULAC SYRUP) GM 06/08/2019 07/08/2019 BID&0800,1999 MILK OF MAGNESIA LIQ ml 06/08/2019 07/08/2019 PRN BID MIRTAZAPINE TAB 15 MG (REMERON) MG 06/08/2019 07/08/2019 PRN QHS CALMOSEPTINE OINT TUBE (RISAMINE OINT) santa 06/08/2019 06/15/2019 PRN QID LOPERAMIDE CAP 2 MG (IMMODIUM) MG 06/08/2019 06/15/2019 PRN QID HALOPERIDOL VIAL INJ 5 MG/CC (HALDOL 1CC V IAL) MG 06/08/2019 06/10/2019 PRN Q6H SERTRALINE TAB 50 MG (ZOLOFT) MG 06/09/2019 07/08/2019 Daily&0900 ASPIRIN ENTERIC COATED TAB 8 1 MG (BABY ASPIRIN EC) MG 06/09/2019 07/08/2019 Daily&0900 ACETAMINOPHEN ORAL TABLET 325mg(Tylenol) MG 06/09/2019 07/09/2019 PRN Daily FLUTICASONE NASAL INHALER MD I 50 MCG (FLONASE NOSE SPRAY) PUFF(S) 06/09/2019 07/08/2019 Daily&0900 AMLODIPINE TAB 2.5 MG (NORVASC) MG 06/09/2019 07/08/2019 Daily&0900 CETIRIZINE TAB 10 MG (ZYRTEC) MG 06/09/2019 07/08/2019 Daily&0900 DONEPEZIL TAB 10 MG (ARICEPT) MG 06/09/2019 07/08/2019 Daily&0900 BISACODYL SUPPOS 10 MG (DULCOLAX SUPPOS) MG 06/09/2019 06/15/2019 PRN Daily MIRTAZAPINE TAB 15 MG (REMERON) MG 06/09/2019 07/08/2019 QHS&2100 ONDANSETRON VIAL INJ 4 MG/2CC (ZOFRAN 2CC VIAL) MG 07/11/2019 07/11/2019 ONCE&0930 PROMETHAZINE VIAL INJ 25 MG/CC (PHENERGAN VIAL) MG 07/11/2019 07/11/2019 ONCE&1002 Problems Date Dx Coded Attending Type Code Diagnosis Diagnosed By 08/09/2014 CHARLENE LUA MD Ot 388.70 OTALGIA NOS 08/09/2014 CHARLENE LUA MD Ot 473.9 CHRONIC SINUSITIS NOS 09/01/2014 ELIZABETH ZULUAGA, MEGHAN Wong Ot 780.96 GENERALIZED PAIN 12/24/2014 BRIANDA JEAN-BAPTISTE 789 .07 ABDOMINAL PAIN, GENERALIZED 12/26/2014 BRIANDA JEAN-BAPTISTE K57 .90 Diverticulosis of intestine, part unspecified, without perforation or abscess without bleeding 12/26/2014 BRIANDA JEAN-BAPTISTE M50 .30 Other cervical disc degeneration, unspecified cervical region 12/26/2014 BRIANDA JEAN-BAPTISTE R10 .9 Unspecified abdominal pain 02/11/2015 BRIANDA JEAN-BAPTISTE R10 .9 Unspecified abdominal pain 05/31/2015 FOSTER ZULUAGA, GEORGES Gandhi Ot H60.92 UNSPECIFIED OTITIS EXTERNA, LEFT EAR 05/31/2015 FOSTER ZULUGAA, GEORGES Gandhi Ot I10 ESSENTIAL (PRIMARY) HYPERTENSION 10/06/2015 FRANCO ZULUAGA, JIMBO Rebolledo Ot Z01.818 ENCOUNTER FOR OTHER PREPROCEDURAL EXAMIN 10/06/2015 JIMBO GAMEZ MD Ot K25.9 GASTRIC ULCER, UNSP ACUTE OR CHRONIC, 10/06/2015 JIMBO GAMEZ MD Ot K26.9 DUODENAL ULCER, UNSP ACUTE OR CHRONIC 10/07/2015 JIMBO GAMEZ MD M Ot M54.9 DORSALGIA, UNSPECIFIED 10/07/2015 FRANCO ZULUAGA, JIMBO M Ot R10.11 RIGHT UPPER QUADRANT PAIN 10/07/2015 FRANCO ZULUAGA, JIMBO M Ot M54.9 DORSALGIA, UNSPECIFIED 10/07/2015 FRANCO ZULUAGA, JIMBO M Ot R10.11 RIGHT UPPER QUADRANT PAIN 10/07/2015 FRANCO ZULUAGA, JIMBO M Ot K25.9 GASTRIC ULCER, UNSP ACUTE OR CHRONIC, 10/07/2015 FRANCO ZULUAGA, JIMBO M Ot K26.9 DUODENAL ULCER, UNSP ACUTE OR CHRONIC 10/31/2015 FRANCO ZULUAGA, JIMBO M Ot R10.11 RIGHT UPPER QUADRANT PAIN 10/31/2015 FRANCO ZULUAGA, JIMBO M Ot R10.11 RIGHT UPPER QUADRANT PAIN 11/12/2015 FRANCO ZULUAGA, JIMBO M Ot M54.9 DORSALGIA, UNSPECIFIED 11/12/2015 FRANCO ZULUAGA, JIMBO M Ot R10.11 RIGHT UPPER QUADRANT PAIN 11/12/2015 FRANCO ZULUAGA, JIMBO M Ot M54.9 DORSALGIA, UNSPECIFIED 11/12/2015 FRANCO ZULUAGA, JIMBO M Ot R10.11 RIGHT UPPER QUADRANT PAIN 11/12/2015 FRANCO ZULUAGA, JIMBO M Ot Z01.818 ENCOUNTER FOR OTHER PREPROCEDURAL EXAMIN 11/12/2015 FRANCO ZULUAGA, JIMBO M Ot R10.11 RIGHT UPPER QUADRANT PAIN 11/21/2015 FRANCO ZULUAGA, JIMBO M Ot R10.11 RIGHT UPPER QUADRANT PAIN 01/05/2016 LOUDERBAKELLEY RAVIEL F R10 .32 Left lower quadrant pain 01/05/2016 DREWERBAKELLEY RAVIEL F D72.819 Decreased white blood cell count, unspecified 01/05/2016 LOUDERBATRAV, BRIANDA F R10 .32 Left lower quadrant pain 01/06/2016 LOUDERBATRAV, BRIANDA F K57 .90 Diverticulosis of intestine, part unspecified, without perforation or abscess without bleeding 01/26/2016 FRANCO ZULUAGA, JIMBO M Ot M54.9 DORSALGIA, UNSPECIFIED 01/26/2016 FRANCO ZULUAGA, JIMBO M Ot R10.11 RIGHT UPPER QUADRANT PAIN 01/26/2016 FRANCO ZULUAGA, JIMBO M Ot Z01.818 ENCOUNTER FOR OTHER PREPROCEDURAL EXAMIN 01/26/2016 FRANCO ZULUAGA, JIMBO Rebolledo Ot R10.11 RIGHT UPPER QUADRANT PAIN 02/10/2016 BRIANDA JEAN-BAPTISTE R10 .9 Unspecified abdominal pain 02/10/2016 BRIANDA JEAN-BAPTISTE Z86 .2 Personal history of diseases of the blood and blood-forming organs and certain disorders involving the immune mechanism 02/10/2016 BRIANDA JEAN-BAPTISTE Z87 .19 Personal history of other diseases of the digestive system 02/17/2016 FRANCO ZULUAGA, JIMBO Rebolledo Ot I88.9 NONSPECIFIC LYMPHADENITIS, UNSPECIFIED 03/16/2016 CHARLENE LUA MD Ot E86.0 DEHYDRATION 03/16/2016 CHARLENE LUA MD Ot J06.9 ACUTE UPPER RESPIRATORY INFECTION, UNSPE 03/16/2016 CHARLENE LUA MD Ot N39.0 URINARY TRACT INFECTION, SITE NOT SPECIF 03/16/2016 CHARLENE LUA MD Ot R51 HEADACHE 03/17/2016 CHARLENE LUA MD Ot E86.0 DEHYDRATION 03/17/2016 CHARLENE LUA MD Ot J06.9 ACUTE UPPER RESPIRATORY INFECTION, UNSPE 03/17/2016 CHARLENE LUA MD Ot N39.0 URINARY TRACT INFECTION, SITE NOT SPECIF 03/17/2016 CHARLENE LUA MD Ot R51 HEADACHE 03/18/2016 CHARLENE LUA MD D Ot E86.0 DEHYDRATION 03/18/2016 CHARLENE LUA MD D Ot J06.9 ACUTE UPPER RESPIRATORY INFECTION, UNSPE 03/18/2016 CHARLENE LUA MD Ot N39.0 URINARY TRACT INFECTION, SITE NOT SPECIF 03/18/2016 CHARLENE LUA MD Ot R51 HEADACHE 03/25/2016 CARIDAD CHAN Ot D61.818 OTHER PANCYTOPENIA 03/25/2016 CARIDAD CHAN Ot R10.9 UNSPECIFIED ABDOMINAL PAIN 04/06/2016 RENATE MITTAL F G89.29 Other chronic pain 04/06/2016 RENATE MITTAL F K13.79 Other lesions of oral mucosa 04/06/2016 RENATE MITTAL F R10.32 Left lower quadrant pain 04/06/2016 RENATE MITTAL A R10.9 Unspecified abdominal pain 05/23/2016 CARIDAD CHAN Ot 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 05/23/2016 CARIDAD CHAN Ot D61.818 OTHER PANCYTOPENIA 05/23/2016 CARIDAD CHAN Ot R10.9 UNSPECIFIED ABDOMINAL PAIN 05/23/2016 CARIDAD CHAN Ot Z79.899 OTHER HALFWAY (CURRENT) DRUG THERAPY 09/24/2016 FRANCO ZULUAGA, JIMBO M Ot M54.9 DORSALGIA, UNSPECIFIED 09/24/2016 FRANCO ZULUAGA, JIMBO M Ot R10.11 RIGHT UPPER QUADRANT PAIN 09/24/2016 FRANCO ZULUAGA, JIMBO M Ot Z01.818 ENCOUNTER FOR OTHER PREPROCEDURAL EXAMIN 09/24/2016 FRANCO ZULUAGA, JIMBO M Ot R10.11 RIGHT UPPER QUADRANT PAIN 09/24/2016 FRANCO ZULUAGA, JIMBO M Ot I88.9 NONSPECIFIC LYMPHADENITIS, UNSPECIFIED 09/24/2016 CARIDAD CHAN Francisco J Ot D61.818 OTHER PANCYTOPENIA 09/24/2016 CARIDAD CHAN Ot R10.9 UNSPECIFIED ABDOMINAL PAIN 09/29/2016 LINK ZULUAGA, SHERI Ot K57.30 DVRTCLOS OF LG INT W/O PERFORATION OR AB 09/30/2016 SHERI MAZA MD Ot K57.30 DVRTCLOS OF LG INT W/O PERFORATION OR AB 11/25/2016 SHERI MAZA MD Ot K57.30 DVRTCLOS OF LG INT W/O PERFORATION OR AB 05/11/2017 GEORGES ARSHAD 592.0 CALCULUS OF KIDNEY 05/11/2017 GEORGES ARSHAD 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 05/11/2017 GEORGES ARSHAD M47.816 SPONDYLOSIS W/O MYELOPATHY OR RADICULOPATHY, LUMBAR REGION 05/11/2017 GEORGES ARSHAD N20.0 CALCULUS OF KIDNEY 05/13/2017 CLAU BOLIVAR W 338.2 CHRONIC PAIN 05/13/2017 CLAU BOLIVAR A 724.5 BACKACHE, UNSPECIFIED 05/13/2017 CLAU BOLIVAR G89.2 9 OTHER CHRONIC PAIN 05/13/2017 OSMELCLAU Geni M54.9 DORSALGIA, UNSPECIFIED 07/02/2017 FRANCO ZULUAGA, JIMBO Rebolledo Ot M54.9 DORSALGIA, UNSPECIFIED 07/02/2017 FRANCO ZULUAGA, JIMBO Rebolledo Ot R10.11 RIGHT UPPER QUADRANT PAIN 07/02/2017 FRANCO ZULUAGA, JIMBO Rebolledo Ot Z01.818 ENCOUNTER FOR OTHER PREPROCEDURAL EXAMIN 07/02/2017 FRANCO ZULUAGA, JIMBO Rebolledo Ot R10.11 RIGHT UPPER QUADRANT PAIN 07/02/2017 FRANCO ZULUAGA, JIMBO Rebolledo Ot I88.9 NONSPECIFIC LYMPHADENITIS, UNSPECIFIED 07/02/2017 CARIDAD CHAN Ot D61.818 OTHER PANCYTOPENIA 07/02/2017 CARIDAD CHAN Ot R10.9 UNSPECIFIED ABDOMINAL PAIN 07/02/2017 LINK ZULUAGA, SHERI Ot K57.30 DVRTCLOS OF LG INT W/O PERFORATION OR AB 07/02/2017 FRANCO ZULUAGA, JIMBO Rebolledo Ot M54.9 DORSALGIA, UNSPECIFIED 07/02/2017 FRANCO ZULUAGA, JIMBO Rebolledo Ot R10.11 RIGHT UPPER QUADRANT PAIN 07/02/2017 FRANCO ZULUAGA, JIMBO Rebolledo Ot Z01.818 ENCOUNTER FOR OTHER PREPROCEDURAL EXAMIN 07/02/2017 JIMBO GAMEZ MD Ot R10.11 RIGHT UPPER QUADRANT PAIN 07/02/2017 FRANCO ZULUAGA, JIMBO Rebolledo Ot I88.9 NONSPECIFIC LYMPHADENITIS, UNSPECIFIED 07/02/2017 CARIDAD CHAN Ot D61.818 OTHER PANCYTOPENIA 07/02/2017 CARIDAD CHAN Ot R10.9 UNSPECIFIED ABDOMINAL PAIN 07/02/2017 SHERI MAZA MD Ot K57.30 DVRTCLOS OF LG INT W/O PERFORATION OR AB 07/04/2017 JIMBO GAMEZ MD Ot M54.9 DORSALGIA, UNSPECIFIED 07/04/2017 FRANCO ZULUAGA, JIMBO Rebolledo Ot R10.11 RIGHT UPPER QUADRANT PAIN 07/04/2017 FRANCO ZULUAGA, JIMBO Rebolledo Ot Z01.818 ENCOUNTER FOR OTHER PREPROCEDURAL EXAMIN 07/04/2017 JIMBO GAMEZ MD Ot R10.11 RIGHT UPPER QUADRANT PAIN 07/04/2017 FRANCO ZULUAGA, JIMBO Rebolledo Ot I88.9 NONSPECIFIC LYMPHADENITIS, UNSPECIFIED 07/04/2017 CARIDAD CHAN Ot D61.818 OTHER PANCYTOPENIA 07/04/2017 CARIDAD CHAN Ot R10.9 UNSPECIFIED ABDOMINAL PAIN 07/04/2017 LINK ZULUAGA, SHERI Ot K57.30 DVRTCLOS OF LG INT W/O PERFORATION OR AB 07/04/2017 FRANCO ZULUAGA, JIMBO Rebolledo Ot M54.9 DORSALGIA, UNSPECIFIED 07/04/2017 FRANCO ZULUAGA, JIMBO Rebolledo Ot R10.11 RIGHT UPPER QUADRANT PAIN 07/04/2017 FRANCO ZULUAGA, JIMBO Rebolledo Ot Z01.818 ENCOUNTER FOR OTHER PREPROCEDURAL EXAMIN 07/04/2017 FRANCO ZULUAGA, JIMBO Rebolledo Ot R10.11 RIGHT UPPER QUADRANT PAIN 07/04/2017 FRANCO ZULUAGA, JIMBO Rebolledo Ot I88.9 NONSPECIFIC LYMPHADENITIS, UNSPECIFIED 07/04/2017 CARIDAD CHAN Ot D61.818 OTHER PANCYTOPENIA 07/04/2017 CARIDAD CHAN Ot R10.9 UNSPECIFIED ABDOMINAL PAIN 07/04/2017 LINK ZULUAGA, SHERI Ot K57.30 DVRTCLOS OF LG INT W/O PERFORATION OR AB 07/04/2017 FRANCO ZULUAGA, JIMBO Rebolledo Ot M54.9 DORSALGIA, UNSPECIFIED 07/04/2017 FRANCO ZULUAGA, JIMBO Rebolledo Ot R10.11 RIGHT UPPER QUADRANT PAIN 07/04/2017 FRANCO ZULUAGA, JIMBO Rebolledo Ot Z01.818 ENCOUNTER FOR OTHER PREPROCEDURAL EXAMIN 07/04/2017 FRANCO ZULUAGA, JIMBO Rebolledo Ot R10.11 RIGHT UPPER QUADRANT PAIN 07/04/2017 FRANCO ZULUAGA, JIMBO Rebolledo Ot I88.9 NONSPECIFIC LYMPHADENITIS, UNSPECIFIED 07/04/2017 CARIDAD CHAN Ot D61.818 OTHER PANCYTOPENIA 07/04/2017 CARIDAD CHAN Ot R10.9 UNSPECIFIED ABDOMINAL PAIN 07/04/2017 SHERI MAZA MD Ot K57.30 DVRTCLOS OF LG INT W/O PERFORATION OR AB 07/05/2017 DEFFENBAESA RAVI DO Ot R10.11 RIGHT UPPER QUADRANT PAIN 07/05/2017 DEFFENBAUGH ESA DALLAS Ot R10.811 RIGHT UPPER QUADRANT ABDOMINAL TENDERNES 07/05/2017 DEFFENBAUGH DO, ESA D Ot R79.9 ABNORMAL FINDING OF BLOOD CHEMISTRY, UNS 07/05/2017 DEFFENBAUGH DO, ESA D Ot R10.11 RIGHT UPPER QUADRANT PAIN 07/05/2017 DEFFENBAUGH DO, ESA D Ot R10.811 RIGHT UPPER QUADRANT ABDOMINAL TENDERNES 07/05/2017 DEFFENBAUGH DO, ESA D Ot R79.9 ABNORMAL FINDING OF BLOOD CHEMISTRY, UNS 07/11/2017 DEFFENBAUGH DO, ESA D Ot R10.11 RIGHT UPPER QUADRANT PAIN 07/11/2017 DEFFENBAUGH DO, ESA D Ot R10.811 RIGHT UPPER QUADRANT ABDOMINAL TENDERNES 07/11/2017 DEFFENBAUGH DO, ESA D Ot R79.9 ABNORMAL FINDING OF BLOOD CHEMISTRY, UNS 07/11/2017 FRANCO ZULUAGA, JIMBO Rebolledo Ot M54.9 DORSALGIA, UNSPECIFIED 07/11/2017 FRANCO ZULUAGA, JIMBO Rebolledo Ot R10.11 RIGHT UPPER QUADRANT PAIN 07/11/2017 FRANCO ZULUAGA, JIMBO Rebolledo Ot Z01.818 ENCOUNTER FOR OTHER PREPROCEDURAL EXAMIN 07/11/2017 FRANCO ZULUAGA, JIMBO Rebolledo Ot R10.11 RIGHT UPPER QUADRANT PAIN 07/11/2017 FRANCO ZULUAGA, JIMBO Rebolledo Ot I88.9 NONSPECIFIC LYMPHADENITIS, UNSPECIFIED 07/11/2017 CARIDAD CHAN Ot D61.818 OTHER PANCYTOPENIA 07/11/2017 CARIDAD CHAN Ot R10.9 UNSPECIFIED ABDOMINAL PAIN 07/11/2017 LINK ZULUAGA, SHERI Ot K57.30 DVRTCLOS OF LG INT W/O PERFORATION OR AB 07/11/2017 DEFFENBAUGH DO, ESA D Ot R10.11 RIGHT UPPER QUADRANT PAIN 07/11/2017 DEFFENBAUGH DO, ESA D Ot R10.811 RIGHT UPPER QUADRANT ABDOMINAL TENDERNES 07/11/2017 DEFFENBAUGH DO, ESA D Ot R79.9 ABNORMAL FINDING OF BLOOD CHEMISTRY, UNS 07/12/2017 DEFFENBAUGH DO, ESA D Ot K76.0 FATTY (CHANGE OF) LIVER, NOT ELSEWHERE C 07/17/2017 DEFFENBAUGH DOJANETTRY D Ot K76.0 FATTY (CHANGE OF) LIVER, NOT ELSEWHERE C 07/24/2017 ARLETTE NAYAK MD Ot R10. 31 RIGHT LOWER QUADRANT PAIN 07/24/2017 ARLETTE NAYAK MD Ot Z79. 82 FIREARMS EXPERT (CURRENT) USE OF ASPIRIN 07/24/2017 ARLETTE NAYAK MD Ot Z87. 19 PERSONAL HISTORY OF OTHER DISEASES OF 07/24/2017 ARLETTE NAYAK MD Ot Z90. 89 ACQUIRED ABSENCE OF OTHER ORGANS 07/26/2017 DEFFENBAUGH DO, ESA D Ot R10.11 RIGHT UPPER QUADRANT PAIN 07/26/2017 DEFFENBAUGH DO, ESA D Ot R10.811 RIGHT UPPER QUADRANT ABDOMINAL TENDERNES 07/26/2017 DEFFENBAUGH DO, ESA D Ot R79.9 ABNORMAL FINDING OF BLOOD CHEMISTRY, [facility] 07/26/2017 DEFFENBAUGH DO, ESA D Ot R10.11 RIGHT UPPER QUADRANT PAIN 07/26/2017 DEFFENBAUGH DO, ESA D Ot R10.811 RIGHT UPPER QUADRANT ABDOMINAL TENDERNES 07/26/2017 DEFFENBAUGH DO, ESA D Ot R79.9 ABNORMAL FINDING OF BLOOD CHEMISTRY, [facility] 08/11/2017 DEFFENBAUGH DO, ESA D Ot K76.0 FATTY (CHANGE OF) LIVER, NOT ELSEWHERE C 05/26/2018 CARIDAD CHAN Ot D61.818 OTHER PANCYTOPENIA 05/26/2018 CARIDAD CHAN Ot R10.9 UNSPECIFIED ABDOMINAL PAIN 05/26/2018 TATIANA ALCARAZ MD Ot R42 DIZZINESS AND GIDDINESS 05/26/2018 TATIANA ALCARAZ MD Ot R55 SYNCOPE AND COLLAPSE 05/26/2018 TATIANA ALCARAZ MD Ot Z79. 82 HALFWAY (CURRENT) USE OF ASPIRIN 05/26/2018 TATIANA ALCARAZ MD Ot Z87. 19 PERSONAL HISTORY OF OTHER DISEASES OF 05/26/2018 TATIANA ALCARAZ MD Ot Z90. 89 ACQUIRED ABSENCE OF OTHER ORGANS 05/30/2018 TATIANA ALCARAZ MD Ot R42 DIZZINESS AND GIDDINESS 05/30/2018 TATIANA ALCARAZ MD Ot R55 SYNCOPE AND COLLAPSE 05/30/2018 TATIANA ALCARAZ MD Ot Z79. 82 HALFWAY (CURRENT) USE OF ASPIRIN 05/30/2018 TATIANA ALCARAZ MD Ot Z87. 19 PERSONAL HISTORY OF OTHER DISEASES OF 05/30/2018 LISSA ZULUAGA, TATIANA S Ot Z90. 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 10/10/2018 ROCIOCARIDAD NOBLES N Ot D61.818 OTHER PANCYTOPENIA 10/10/2018 ROCIOCARIDAD NOBLES N Ot Z79.82 HALFWAY (CURRENT) USE OF ASPIRIN 03/24/2019 BERTIN BRANCH CUSTOMER SERVICE REPRESENTATIVE, STORMY W 780 .97 ALTERED MENTAL STATUS 03/24/2019 BERTIN BRANCH CUSTOMER SERVICE REPRESENTATIVE, STORMY W 784 .0 HEADACHE 03/24/2019 BERTIN BRANCH CUSTOMER SERVICE REPRESENTATIVE, STORMY W 787 .20 DYSPHAGIA, UNSPECIFIED 03/24/2019 BERTIN BRANCH CUSTOMER SERVICE REPRESENTATIVE, STORMY W G89 .29 OTHER CHRONIC PAIN 03/24/2019 BERTIN BRANCH CUSTOMER SERVICE REPRESENTATIVE, STORMY W M47.816 SPONDYLOSIS W/O MYELOPATHY OR RADICULOPATHY, LUMBAR RE GION 03/24/2019 BERTIN BRANCH CUSTOMER SERVICE REPRESENTATIVE, STORMY W M54 .9 DORSALGIA, UNSPECIFIED 03/24/2019 BERTIN BRANCH CUSTOMER SERVICE REPRESENTATIVE, STORMY W N20 .0 CALCULUS OF KIDNEY 03/24/2019 BERTIN BRANCH CUSTOMER SERVICE REPRESENTATIVE, STORMY W R13 .10 DYSPHAGIA, UNSPECIFIED 03/24/2019 BERTIN BRANCH CUSTOMER SERVICE REPRESENTATIVE, STORMY W R41 .82 ALTERED MENTAL STATUS, UNSPECIFIED 03/24/2019 BERTIN BRANCH CUSTOMER SERVICE REPRESENTATIVE, STORMY W R51 HEADACHE 03/26/2019 FRANCO ZULUAGA, JIMBO Rebolledo Ot M54.9 DORSALGIA, UNSPECIFIED 03/26/2019 FRANCO ZULUAGA, JIMBO Rebolledo Ot R10.11 RIGHT UPPER QUADRANT PAIN 03/26/2019 FRANCO ZULUAGA, JIMBO Rebolledo Ot Z01.818 ENCOUNTER FOR OTHER PREPROCEDURAL EXAMIN 03/26/2019 FRANCO ZULUAGA, JIMBO Rebolledo Ot R10.11 RIGHT UPPER QUADRANT PAIN 03/26/2019 FRANCO ZULUAGA, JIMBO Rebolledo Ot I88.9 NONSPECIFIC LYMPHADENITIS, UNSPECIFIED 03/26/2019 LINK ZULUAGA, SHERI Ot K57.30 DVRTCLOS OF LG INT W/O PERFORATION OR AB 03/26/2019 DEFLIONELBAESA RAVI DO Ot R10.11 RIGHT UPPER QUADRANT PAIN 03/26/2019 KARENBAESA RAVI DO Ot R10.811 RIGHT UPPER QUADRANT ABDOMINAL TENDERNES 03/26/2019 KARENBAESA RAVI DO Ot R79.9 ABNORMAL FINDING OF BLOOD CHEMISTRY, UNS 03/26/2019 ESA LAZO DO Ot K76.0 FATTY (CHANGE OF) LIVER, NOT ELSEWHERE C 03/26/2019 CARIDAD CHAN Ot 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 03/26/2019 CARIDAD CHAN Ot D61.818 OTHER PANCYTOPENIA 03/26/2019 CARIDAD CHAN Ot Z79.82 HALFWAY (CURRENT) USE OF ASPIRIN 03/26/2019 CARIDAD CHAN Ot 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 03/26/2019 CARIDAD CHAN Ot D61.818 OTHER PANCYTOPENIA 03/26/2019 CARIDAD CHAN Ot Z79.82 FIREARMS EXPERT (CURRENT) USE OF ASPIRIN 04/01/2019 SONDRA HOUSTON Ot B37.0 CANDIDAL STOMATITIS 04/01/2019 SONDRA HOUSTON Ot K14.8 OTHER DISEASES OF TONGUE 04/01/2019 SONDRA HOUSTON Ot R13.10 DYSPHAGIA, UNSPECIFIED 04/16/2019 BRADFORD DENTON APRN W R13 .10 DYSPHAGIA, UNSPECIFIED 04/16/2019 Vita Hines W R13.10 DYSPHAGIA, UNSPECIFIED 04/16/2019 GEORGES FABIAN W R13 .10 DYSPHAGIA, UNSPECIFIED 04/16/2019 Josue Banda W R13.10 DYSPHAGIA, UNSPECIFIED 04/16/2019 Josue Banda W R13.10 DYSPHAGIA, UNSPECIFIED 04/16/2019 Josue Banda W R13.10 DYSPHAGIA, UNSPECIFIED 04/16/2019 BRADFORD DENTON APRN W R13 .10 DYSPHAGIA, UNSPECIFIED 06/06/2019 Hines, Vita W 486 PNEUMONIA, ORGANISM UNSPECIFIED 06/06/2019 Hines, Vita W J18.9 PNEUMONIA, UNSPECIFIED ORGANISM 06/06/2019 Hines, Vita W 486 PNEUMONIA, ORGANISM UNSPECIFIED 06/06/2019 Hines, Vita W 780.97 ALTERED MENTAL STATUS 06/06/2019 Hines, Vita W J18.9 PNEUMONIA, UNSPECIFIED ORGANISM 06/06/2019 Hines, Vita W R41.82 ALTERED MENTAL STATUS, UNSPECIFIED 06/06/2019 Hines, Vita W 486 PNEUMONIA, ORGANISM UNSPECIFIED 06/06/2019 Hines, Vita W 780.97 ALTERED MENTAL STATUS 06/06/2019 Hines, Vita W J18.9 PNEUMONIA, UNSPECIFIED ORGANISM 06/06/2019 Hines, Vita W R41.82 ALTERED MENTAL STATUS, UNSPECIFIED 06/06/2019 Hines, Vita W 486 PNEUMONIA, ORGANISM UNSPECIFIED 06/06/2019 Hines, Vita W 780.97 ALTERED MENTAL STATUS 06/06/2019 Hines, Vita W J18.9 PNEUMONIA, UNSPECIFIED ORGANISM 06/06/2019 Hines, Vita W R41.82 ALTERED MENTAL STATUS, UNSPECIFIED 06/08/2019 Hines, Vita W 486 PNEUMONIA, ORGANISM UNSPECIFIED 06/08/2019 Hines, Vita W 780.97 ALTERED MENTAL STATUS 06/08/2019 Hines, Vita W G89.29 OTHER CHRONIC PAIN 06/08/2019 Hines, Vita W J18.9 PNEUMONIA, UNSPECIFIED ORGANISM 06/08/2019 Hines, Vita W M47.816 SPONDYLOSIS W/O MYELOPATHY OR RADICULOPATHY, LUMBAR REGION 06/08/2019 Hines, Vita W M54.9 DORSALGIA, UNSPECIFIED 06/08/2019 Hines, Vita W N20.0 CALCULUS OF KIDNEY 06/08/2019 Hines, Vita W R41.82 ALTERED MENTAL STATUS, UNSPECIFIED 06/11/2019 TARTAGLIONE, GEORGES W 038 .9 UNSPECIFIED SEPTICEMIA 06/11/2019 TARTAGLIONE, GEORGES W 293 .0 DELIRIUM DUE TO CONDITIONS CLASSIFIED ELSEWHERE 06/11/2019 TARTAGLIONE, GEORGES W 296 .24 MAJOR DEPRESSIVE DISORDER, SINGLE EPISODE, SEVERE DEGREE, SPECIFIED WITH PSYCHOTIC BEHAVIOR 06/11/2019 THANHTAGLIONE, GEORGES W 401 .0 MALIGNANT ESSENTIAL HYPERTENSION 06/11/2019 TARTAGLIONE, GEORGES W 477 .9 ALLERGIC RHINITIS, CAUSE UNSPECIFIED 06/11/2019 TARTAGLIONE, GEORGES W 482 .9 BACTERIAL PNEUMONIA, UNSPECIFIED 06/11/2019 TARTAGLIONE, GEORGES W 780 .52 INSOMNIA, UNSPECIFIED 06/11/2019 TARTAGLIONE, GEORGES W A41 .9 SEPSIS, UNSPECIFIED ORGANISM 06/11/2019 TARTAGLIONE, GEORGES W F05 DELIRIUM DUE TO KNOWN PHYSIOLOGICAL CONDITION 06/11/2019 TARTAGLANNY, GEORGES W F32 .3 MAJOR DEPRESSV DISORD, SINGLE EPSD, SEVERE W PSYCH FEATURES 06/11/2019 TARTAGLANNY, GEORGES W G47 .00 INSOMNIA, UNSPECIFIED 06/11/2019 TARTAGLIONE, GEORGES W G89 .29 OTHER CHRONIC PAIN 06/11/2019 THANHTAGLANNY, GEOREGS W I10 ESSENTIAL (PRIMARY) HYPERTENSION 06/11/2019 TARTAGLIONE, GEORGES W J15 .9 UNSPECIFIED BACTERIAL PNEUMONIA 06/11/2019 TARTAGLIONE, [place] W J18 .9 PNEUMONIA, UNSPECIFIED ORGANISM 06/11/2019 TARTAGLIONE, GEORGES W J30 .9 ALLERGIC RHINITIS, UNSPECIFIED 06/11/2019 TARTAGLIONE, GEORGES W M47.816 SPONDYLOSIS W/O MYELOPATHY OR RADICULOPATHY, LUMBAR RE GION 06/11/2019 TARTAGLIONE, GEORGES W M54 .9 DORSALGIA, UNSPECIFIED 06/11/2019 TARTAGLIONE, GEORGES W N20 .0 CALCULUS OF KIDNEY 06/11/2019 TARTAGLIONE, GEORGES W R41 .82 ALTERED MENTAL STATUS, UNSPECIFIED 06/11/2019 TARTAGLIONE, GEORGES W R45.851 SUICIDAL IDEATIONS 06/11/2019 TARTAGLANNY, GEORGES W V62 .84 SUICIDAL IDEATION 06/12/2019 Josue Banda W 920 CONTUSION OF FACE, SCALP, AND NECK EXCEPT EYE(S) 06/12/2019 Josue Banda 923.00 CONTUSION OF SHOULDER REGION 06/12/2019 Josue Banda E885.9 FALL FROM OTHER SLIPPING, TRIPPING, OR STUMBLING 06/12/2019 Josue Banda G89.29 OTHER CHRONIC PAIN 06/12/2019 Josue Banda J18.9 PNEUMONIA, UNSPECIFIED ORGANISM 06/12/2019 Josue Banda M47.816 SPONDYLOSIS W/O MYELOPATHY OR RADICULOPATHY, LUMBAR REGION 06/12/2019 Josue Banda M54.9 DORSALGIA, UNSPECIFIED 06/12/2019 Josue Banda N20.0 CALCULUS OF KIDNEY 06/12/2019 Josue Banda R41.82 ALTERED MENTAL STATUS, UNSPECIFIED 06/12/2019 Josue Banda S00.83XA CONTUSION OF OTHER PART OF HEAD, INITIAL ENCOUNTER 06/12/2019 Josue Banda S40.011A CONTUSION OF RIGHT SHOULDER, INITIAL ENCOUNTER 06/12/2019 Josue Banda W01.0XXA FALL SAME LEV FROM SLIP/TRIP W/O STRIKE AGAINST OBJECT, INIT 06/25/2019 Josue Banda 729.1 MYALGIA AND MYOSITIS, UNSPECIFIED 06/25/2019 Josue Banda 789.01 ABDOMINAL PAIN, RIGHT UPPER QUADRANT 06/25/2019 Josue Banda 789.03 ABDOMINAL PAIN, RIGHT LOWER QUADRANT 06/25/2019 Josue Banda G89.29 OTHER CHRONIC PAIN 06/25/2019 Josue Banda J18.9 PNEUMONIA, UNSPECIFIED ORGANISM 06/25/2019 Josue Banda M47.816 SPONDYLOSIS W/O MYELOPATHY OR RADICULOPATHY, LUMBAR REGION 06/25/2019 Josue Banda M54.9 DORSALGIA, UNSPECIFIED 06/25/2019 Josue Banda M79.18 MYALGIA, OTHER SITE 06/25/2019 Josue Banda N20.0 CALCULUS OF KIDNEY 06/25/2019 Josue Banda R10.11 RIGHT UPPER QUADRANT PAIN 06/25/2019 Josue Banda R10.31 RIGHT LOWER QUADRANT PAIN 06/25/2019 Howayek, Josue W R41.82 ALTERED MENTAL STATUS, UNSPECIFIED 07/10/2019 Veronika Josue W G89.29 OTHER CHRONIC PAIN 07/10/2019 Veronika Josue W J18.9 PNEUMONIA, UNSPECIFIED ORGANISM 07/10/2019 Josue Banda W M47.816 SPONDYLOSIS W/O MYELOPATHY OR RADICULOPATHY, LUMBAR REGION 07/10/2019 Roryrehana Josue W M54.9 DORSALGIA, UNSPECIFIED 07/10/2019 Veronika Josue Yovani N20.0 CALCULUS OF KIDNEY 07/10/2019 Veronika Josue Yovani R41.82 ALTERED MENTAL STATUS, UNSPECIFIED 07/11/2019 BERTIN BRANCH CUSTOMER SERVICE REPRESENTATIVELOUISEY W 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 07/11/2019 BERTIN BRANCH CUSTOMER SERVICE REPRESENTATIVE, STORMY W 284 .19 OTHER PANCYTOPENIA 07/11/2019 BERTIN BRANCH CUSTOMER SERVICE REPRESENTATIVE, STORMY W 558 .9 OTHER AND UNSPECIFIED NONINFECTIOUS GASTROENTERITIS AND COLITIS 07/11/2019 BERTIN BRANCH CUSTOMER SERVICE REPRESENTATIVE, STORMY W D61.818 OTHER PANCYTOPENIA 07/11/2019 BERTIN BRANCH CUSTOMER SERVICE REPRESENTATIVE, STORMY W E53 .8 DEFICIENCY OF OTHER SPECIFIED B GROUP VITAMINS 07/11/2019 BERTIN BRANCH CUSTOMER SERVICE REPRESENTATIVE, STORMY W G89 .29 OTHER CHRONIC PAIN 07/11/2019 BERTIN BRANCH CUSTOMER SERVICE REPRESENTATIVE, LOUISEY W J18 .9 PNEUMONIA, UNSPECIFIED ORGANISM 07/11/2019 BERTIN BRANCH CUSTOMER SERVICE REPRESENTATIVE, STORMY W K52 .9 NONINFECTIVE GASTROENTERITIS AND COLITIS, UNSPECIFIED 07/11/2019 BERTIN BRANCH CUSTOMER SERVICE REPRESENTATIVE, STORMY W M47.816 SPONDYLOSIS W/O MYELOPATHY OR RADICULOPATHY, LUMBAR RE GION 07/11/2019 BERTIN BRANCH CUSTOMER SERVICE REPRESENTATIVE, STORMY W M54 .9 DORSALGIA, UNSPECIFIED 07/11/2019 BERTIN BRANCH CUSTOMER SERVICE REPRESENTATIVE, STORMY W N20 .0 CALCULUS OF KIDNEY 07/11/2019 BERTIN BRANCH CUSTOMER SERVICE REPRESENTATIVE, STORMY W R41 .82 ALTERED MENTAL STATUS, UNSPECIFIED 09/27/2019 FRANCO ZULUAGA, JIMBO Rebolledo Ot M54.9 DORSALGIA, UNSPECIFIED 09/27/2019 FRANCO ZULUAGA, JIMBO Rebol[place]o Ot R10.11 RIGHT UPPER QUADRANT PAIN 09/27/2019 FRANCO ZULUAGA, JIMBO Rebol[place]o Ot Z01.818 ENCOUNTER FOR OTHER PREPROCEDURAL EXAMIN 09/27/2019 FRANCO ZULUAGA, JIMBO [place]bol[place] Ot R10.11 RIGHT UPPER QUADRANT PAIN 09/27/2019 FRANCO ZULUAGA, JIMBO [place] Ot I88.9 NONSPECIFIC LYMPHADENITIS, UNSPECIFIED 09/27/2019 LINK ZULUAGA, SHERI Ot K57.30 DVRTCLOS OF LG INT W/O PERFORATION OR AB 09/27/2019 DEFFENBAESA RAVI DO Ot R10.11 RIGHT UPPER QUADRANT PAIN 09/27/2019 DEFFENBAUGH ESA [place]AS Ot R10.811 RIGHT UPPER QUADRANT ABDOMINAL TENDERNES 09/27/2019 DEFFENBAUGH DOESA Ot R79.9 ABNORMAL FINDING OF BLOOD CHEMISTRY, UNS 09/27/2019 DEFFENBAESA RAVI DO Ot K76.0 FATTY (CHANGE OF) LIVER, NOT ELSEWHERE C 09/27/2019 CARIDAD CHAN Ot 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 09/27/2019 CARIDAD CHAN Ot D61.818 OTHER PANCYTOPENIA 09/27/2019 CARIDAD CHAN Ot Z79.82 FIREARMS EXPERT (CURRENT) USE OF ASPIRIN 09/27/2019 SONDRA HOUSTON Ot B37.0 CANDIDAL STOMATITIS 09/27/2019 SONDRA HOUSTON Ot K14.8 OTHER DISEASES OF TONGUE 09/27/2019 SONDRA HOUSTON Ot R13.10 DYSPHAGIA, UNSPECIFIED 10/01/2019 O'LORI CULP APRN Ot M19.011 PRIMARY OSTEOARTHRITIS, RIGHT SHOULDER 10/01/2019 O'DELLORI Keen APRN Ot M25.511 PAIN IN RIGHT SHOULDER 10/01/2019 O'LORI CULP APRN Ot M25.611 STIFFNESS OF RIGHT SHOULDER, NOT ELSEWHE 10/01/2019 O'LORI CULP APRN Ot M77 .9 ENTHESOPATHY, UNSPECIFIED 10/01/2019 O'LORI CULP APRN Ot W19.XXXA UNSPECIFIED FALL, INITIAL ENCOUNTER Procedures There is no data. Results Test Result Range CBC with Auto Diff - 03/11/16 15:12 Baso% 0.30 % 0.00-2.50 Eos 0.0 K/uL 0.0-0.7 Eos% 1.4 % 0.0-7.0 Hct 35.5 % 42.0-52.0 Hgb 11.6 g/dL 14.0-17.0 Lym 0.79 K/uL 0.60-3.40 Lym% 27.6 % 10.0-50.0 MCH 33.7 pg 27.0-31.2 MCHC 32.7 g/dL 32.0-36.0 MCV 103.2 fL 80.0-97.0 Swift% 36.0 % 0.0-12.0 MPV 11.2 fL 7.4-10.0 Jun% 34.7 % 37.0-80.0 Plt 133 K/uL 150-400 RBC 3.44 M/uL 4.20-5.40 RDW 14.0 % 11.6-14.8 WBC 2.86 Result Verified by Repeat Analysis K/uL 5.00-10.00 Jun 0.99 K/uL 2.00-6.90 Swift 1.0 K/uL 0.0-0.9 Baso 0.0 K/uL 0.0-0.2 Complete blood count (CBC) with automate d white blood cell (WBC) differential - 03/16/16 07:50 Blood leukocytes automated count (number/volume) 2.5 10*3/uL 4.3-11.0 Blood erythrocytes automated count (number/volume) 3.31 10*6/uL 4.35-5.85 Venous blood hemoglobin measurement (mass/volume) 11.0 g/dL 13.3-17.7 Blood hematocrit (volume fraction) 33 % 40-54 Automated erythrocyte mean corpuscular volume 100 [foz_us] 80-99 Automated erythrocyte mean corpuscular h emoglobin (mass per erythrocyte) 33 pg 25-34 Automated erythrocyte mean corpuscular h emoglobin concentration measurement (mass/volume) 33 g/dL 32-36 Automated erythrocyte distribution width ratio 14. 1 % 10.0- 14.5 Automated blood platelet count (count/volume) 129 10*3/uL 130-400 Automated blood platelet mean volume measurement 10.8 [foz_us] 7.4-10.4 Automated blood neutrophils/100 leukocytes 43 % 42-75 Automated blood lymphocytes/100 leukocytes 22 % 12-44 Blood monocytes/100 leukocytes 34 % 0-12 Automated blood eosinophils/100 leukocytes 1 % 0-10 Automated blood basophils/100 leukocytes 0 % 0-10 Blood neutrophils automated count (number/volume) 1.1 10*3 1.8-7.8 Blood lymphocytes automated count (number/volume) 0.5 10*3 1.0-4.0 Blood monocytes automated count (number/volume) 0. 8 10*3 0.0-1.0 Automated eosinophil count 0.0 10*3/uL 0 .0-0.3 Automated blood basophil count (count/volume) 0.0 10*3/uL 0.0-0.1 Comprehensive metabolic panel - 03/16/16 07:50 Serum or plasma sodium measurement (moles/volume) 140 mmol/L 135-145 Serum or plasma potassium measurement (moles/volume) 3.5 mmol/L 3.6-5.0 Serum or plasma chloride measurement (moles/volume) 107 mmol/L 98-107 Carbon dioxide 25 mmol/L 21-32 Serum or plasma anion gap determination (moles/volume) 8 mmol/L 5-14 Serum or plasma urea nitrogen measurement (mass/volume ) 10 mg/dL 7-18 Serum or plasma creatinine measurement (mass/volume) 0.85 mg/dL 0.60-1.30 Serum or plasma urea nitrogen/creatinine mass ratio 12 NRG Serum or plasma creatinine measurement w ith calculation of estimated glomerular filtration rate > NRG Serum or plasma glucose measurement (mass/volume) 137 mg/dL 70-105 Serum or plasma calcium measurement (mass/volume) 8.5 mg/dL 8.5-10.1 Serum or plasma total bilirubin measurement (mass/volu me) 0.6 mg/dL 0.1-1.0 Serum or plasma alkaline phosphatase art surement (enzymatic activity/volume) 45 U/L 40-136 Serum or plasma aspartate aminotransfera se measurement (enzymatic activity/volume) 14 U/L 5-34 Serum or plasma alanine aminotransferase measurement (enzymatic activity/volume) 9 U/L 0-55 Serum or plasma protein measurement (mass/volume) 5.7 g/dL 6.4-8.2 Serum or plasma albumin measurement (mass/volume) 3.5 g/dL 3.2-4.5 Lipase - 03/16/16 07:50 Lipase 10 U/L 8-78 Serum or plasma C reactive protein measu rement (mass/volume) - 03/16/16 07:50 Serum or plasma C reactive protein measurement (mass/v olume) 0.60 mg/dL 0.00-0.50 Blood manual differential performed dete ction - 03/16/16 07:50 Blood monocytes/100 leukocytes 29 % NRG Manual blood segmented neutrophils/100 leukocytes 43 % NRG Blood band neutrophils/100 leukocytes 0 % NRG Manual blood lymphocytes/100 leukocytes 28 % NRG Manual eosinophils/100 leukocytes in nose 0 % NRG Manual blood basophils/100 leukocytes 0 % NRG Blood macrocytes detection by light microscopy SLI GHT NRG Influenza virus A and B antigen detectio n - 03/16/16 08:00 FLU RESULT NEGATIVE FOR INFLUENZA A AND B ANTIGENS BY IA NRG Complete urinalysis with reflex to cultu re - 03/16/16 08:20 Urine color determination YELLOW NRG Urine clarity determination CLEAR NR G Urine pH measurement by test strip 6 5-9 Specific gravity of urine by test strip 1.020 1.016-1.022 Urine protein assay by test strip, semi-quantitative 2+ NEGATIVE Urine glucose detection by automated test strip NE GATIVE NEGATIVE Erythrocytes detection in urine sediment by light micr oscopy NEGATIVE NEGATIVE Urine ketones detection by automated test strip 1+ NEGATIVE Urine nitrite detection by test strip NEGATIVE NEGATIVE Urine total bilirubin detection by test strip 1+ NEGATIVE Urine urobilinogen measurement by automated test strip (mass/volume) 1 mg/dL NORMAL Urine leukocyte esterase detection by dipstick 1+ NEGATIVE Automated urine sediment erythrocyte cou nt by microscopy (number/high power field) NONE NRG Automated urine sediment leukocyte count by microscopy (number/high power field) [HPF] NRG Bacteria detection in urine sediment by light microsco py FEW NRG Crystals detection in urine sediment by light microsco py PRESENT NRG Casts detection in urine sediment by light microscopy NONE NRG Mucus detection in urine sediment by light microscopy MODERATE NRG Complete urinalysis with reflex to culture YES NRG Amorphous sediment detection in urine sediment by ligh t microscopy MOD PARDEEP URATES NRG Bacterial urine culture - 03/16/16 08:20 Bacterial urine culture NG NRG Folate - 06/08/16 11:27 Folate 8.20 ng/mL 7.00-31.40 [id number] - 09/24/16 08:17 Serum or plasma urea nitrogen measurement (mass/volume ) 8 mg/dL 7-18 Serum or plasma creatinine measurement (mass/volume) 1.03 mg/dL 0.60-1.30 Serum or plasma urea nitrogen/creatinine mass ratio 8 NRG Serum or plasma creatinine measurement w ith calculation of estimated glomerular filtration rate > NRG Urinalysis - 05/11/17 09:58 Icotest N/A Negative Urine Volume Urine Volume Sufficient (10mL) Urine Yeast No Yeast present Urine-Appearance Clear Clear Urine-Bacteria Negative Urine-Bilirubin Negative Negative Urine-Blood Trace-intact Negative Urine-Color Yellow Colorless-[place] ow Urine-Glucose Negative Negative Urine-Ketones Negative Negative Urine-Leukocytes Negative Negative Urine-Mucus 4+ Urine-Nitrite Negative Negative Urine-Other Urine Saved if Culture Need ed (48hrs from time of collection) Urine-pH 7.0 5-8.5 Urine-Protein Negative Negative Urine-RBC Rare/HPF Urine-Specific [place] 1.020 1.000-1 .030 Urine-WBC Negative Urobilinogen 0.2 E.U./dL 0.2-1.0 Urinalysis - 05/13/17 08:27 Icotest N/A Negative Urine Volume Urine Volume Sufficient (10mL) Urine-Appearance Clear Clear Urine-Bilirubin Negative Negative Urine-Blood Trace-lysed Negative Urine-Color Yellow Colorless-[place] ow Urine-Glucose Negative Negative Urine-Ketones Negative Negative Urine-Leukocytes Negative Negative Urine-Nitrite Negative Negative Urine-pH 7.0 5-8.5 Urine-Protein Negative Negative Urine-RBC 0-2/HPF Urine-Specific [place] 1.015 1.000-1 .030 Urobilinogen 0.2 E.U./dL 0.2-1.0 [id number] - 07/04/17 10:10 Serum or plasma urea nitrogen measurement (mass/volume ) 5 mg/dL 7-18 Serum or plasma creatinine measurement (mass/volume) 1.07 mg/dL 0.60-1.30 Serum or plasma urea nitrogen/creatinine mass ratio 5 NRG Serum or plasma creatinine measurement w ith calculation of estimated glomerular filtration rate > NRG Complete blood count (CBC) with automate d white blood cell (WBC) differential - 07/24/17 03:55 Blood leukocytes automated count (number/volume) 3.7 10*3/uL 4.3-11.0 Blood erythrocytes automated count (number/volume) 3.46 10*6/uL 4.35-5.85 Venous blood hemoglobin measurement (mass/volume) 12.0 g/dL 13.3-17.7 Blood hematocrit (volume fraction) 37 % 40-54 Automated erythrocyte mean corpuscular volume 106 [foz_us] 80-99 Automated erythrocyte mean corpuscular h emoglobin (mass per erythrocyte) 35 pg 25-34 Automated erythrocyte mean corpuscular h emoglobin concentration measurement (mass/volume) 33 g/dL 32-36 Automated erythrocyte distribution width ratio 14. 1 % 10.0- 14.5 Automated blood platelet count (count/volume) 114 10*3/uL 130-400 Automated blood platelet mean volume measurement 10.6 [foz_us] 7.4-10.4 Automated blood neutrophils/100 leukocytes 30 % 42-75 Automated blood lymphocytes/100 leukocytes 15 % 12-44 Blood monocytes/100 leukocytes 54 % 0-12 Automated blood eosinophils/100 leukocytes 1 % 0-10 Automated blood basophils/100 leukocytes 0 % 0-10 Blood neutrophils automated count (number/volume) 1.1 10*3 1.8-7.8 Blood lymphocytes automated count (number/volume) 0.6 10*3 1.0-4.0 Blood monocytes automated count (number/volume) 2. 0 10*3 0.0-1.0 Automated eosinophil count 0.1 10*3/uL 0 .0-0.3 Automated blood basophil count (count/volume) 0.0 10*3/uL 0.0-0.1 Comprehensive metabolic panel - 07/24/17 03:55 Serum or plasma sodium measurement (moles/volume) 142 mmol/L 135-145 Serum or plasma potassium measurement (moles/volume) 3.7 mmol/L 3.6-5.0 Serum or plasma chloride measurement (moles/volume) 108 mmol/L 98-107 Carbon dioxide 24 mmol/L 21-32 Serum or plasma anion gap determination (moles/volume) 10 mmol/L 5-14 Serum or plasma urea nitrogen measurement (mass/volume ) 7 mg/dL 7-18 Serum or plasma creatinine measurement (mass/volume) 0.96 mg/dL 0.60-1.30 Serum or plasma urea nitrogen/creatinine mass ratio 7 NRG Serum or plasma creatinine measurement w ith calculation of estimated glomerular filtration rate > NRG Serum or plasma glucose measurement (mass/volume) 109 mg/dL 70-105 Serum or plasma calcium measurement (mass/volume) 8.8 mg/dL 8.5-10.1 Serum or plasma total bilirubin measurement (mass/volu me) 0.6 mg/dL 0.1-1.0 Serum or plasma alkaline phosphatase art surement (enzymatic activity/volume) 50 U/L 40-136 Serum or plasma aspartate aminotransfera se measurement (enzymatic activity/volume) 13 U/L 5-34 Serum or plasma alanine aminotransferase measurement (enzymatic activity/volume) < U/L 0-55 Serum or plasma protein measurement (mass/volume) 7.0 g/dL 6.4-8.2 Serum or plasma albumin measurement (mass/volume) 4.1 g/dL 3.2-4.5 Serum or plasma C reactive protein measu rement (mass/volume) - 07/24/17 03:55 Serum or plasma C reactive protein measurement (mass/v olume) 0.46 mg/dL 0.00-0.50 Complete urinalysis with reflex to cultu re - 07/24/17 04:50 Urine color determination YELLOW NRG Urine clarity determination CLEAR NR G Urine pH measurement by test strip 7 5-9 Specific gravity of urine by test strip 1.005 1.016-1.022 Urine protein assay by test strip, semi-quantitative NEGATIVE NEGATIVE Urine glucose detection by automated test strip NE GATIVE NEGATIVE Erythrocytes detection in urine sediment by light micr oscopy 1+ NEGATIVE Urine ketones detection by automated test strip NE GATIVE NEGATIVE Urine nitrite detection by test strip NEGATIVE NEGATIVE Urine total bilirubin detection by test strip NEGA TIVE NEGATIVE Urine urobilinogen measurement by automated test strip (mass/volume) NORMAL NORMAL Urine leukocyte esterase detection by dipstick NEG ATIVE NEGATIVE Automated urine sediment erythrocyte cou nt by microscopy (number/high power field) RARE NRG Automated urine sediment leukocyte count by microscopy (number/high power field) NONE NRG Bacteria detection in urine sediment by light microsco py NEGATIVE NRG Squamous epithelial cells detection in u rine sediment by light microscopy RARE NRG Crystals detection in urine sediment by light microsco py NONE NRG Casts detection in urine sediment by light microscopy NONE NRG Mucus detection in urine sediment by light microscopy NEGATIVE NRG Complete urinalysis with reflex to culture NO NRG Complete blood count (CBC) with automate d white blood cell (WBC) differential - 05/26/18 13:29 Blood leukocytes automated count (number/volume) 2.2 10*3/uL 4.3-11.0 Blood erythrocytes automated count (number/volume) 3.37 10*6/uL 4.35-5.85 Venous blood hemoglobin measurement (mass/volume) 11.4 g/dL 13.3-17.7 Blood hematocrit (volume fraction) 36 % 40-54 Automated erythrocyte mean corpuscular volume 107 [foz_us] 80-99 Automated erythrocyte mean corpuscular h emoglobin (mass per erythrocyte) 34 pg 25-34 Automated erythrocyte mean corpuscular h emoglobin concentration measurement (mass/volume) 32 g/dL 32-36 Automated erythrocyte distribution width ratio 13. 7 % 10.0- 14.5 Automated blood platelet count (count/volume) 117 10*3/uL 130-400 Automated blood platelet mean volume measurement 10.5 [foz_us] 7.4-10.4 Automated blood neutrophils/100 leukocytes 15 % 42-75 Automated blood lymphocytes/100 leukocytes 49 % 12-44 Blood monocytes/100 leukocytes 33 % 0-12 Automated blood eosinophils/100 leukocytes 2 % 0-10 Automated blood basophils/100 leukocytes 1 % 0-10 Blood neutrophils automated count (number/volume) 0.3 10*3 1.8-7.8 Blood lymphocytes automated count (number/volume) 1.1 10*3 1.0-4.0 Blood monocytes automated count (number/volume) 0. 7 10*3 0.0-1.0 Automated eosinophil count 0.0 10*3/uL 0 .0-0.3 Automated blood basophil count (count/volume) 0.0 10*3/uL 0.0-0.1 PT panel in platelet poor plasma by coag ulation assay - 05/26/18 13:29 Prothrombin time (PT) in platelet poor plasma by coagu lation assay 13.7 s 12.2-14.7 INR in platelet poor plasma or blood by coagulation as say 1.1 0.8-1.4 Activated partial thromboplastin time (a PTT) in platelet poor plasma bycoagulation assay - 05/26/18 13:29 Activated partial thromboplastin time (a PTT) in platelet poor plasma bycoagulation assay 35 s 24-35 Comprehensive metabolic panel - 05/26/18 13:29 Serum or plasma sodium measurement (moles/volume) 144 mmol/L 135-145 Serum or plasma potassium measurement (moles/volume) 3.7 mmol/L 3.6-5.0 Serum or plasma chloride measurement (moles/volume) 110 mmol/L 98-107 Carbon dioxide 26 mmol/L 21-32 Serum or plasma anion gap determination (moles/volume) 8 mmol/L 5-14 Serum or plasma urea nitrogen measurement (mass/volume ) 6 mg/dL 7-18 Serum or plasma creatinine measurement (mass/volume) 1.19 mg/dL 0.60-1.30 Serum or plasma urea nitrogen/creatinine mass ratio 5 NRG Serum or plasma creatinine measurement w ith calculation of estimated glomerular filtration rate 59 NRG Serum or plasma glucose measurement (mass/volume) 100 mg/dL 70-105 Serum or plasma calcium measurement (mass/volume) 9.2 mg/dL 8.5-10.1 Serum or plasma total bilirubin measurement (mass/volu me) 0.5 mg/dL 0.1-1.0 Serum or plasma alkaline phosphatase art surement (enzymatic activity/volume) 45 U/L 40-136 Serum or plasma aspartate aminotransfera se measurement (enzymatic activity/volume) 18 U/L 5-34 Serum or plasma alanine aminotransferase measurement (enzymatic activity/volume) 7 U/L 0-55 Serum or plasma protein measurement (mass/volume) 6.8 g/dL 6.4-8.2 Serum or plasma albumin measurement (mass/volume) 4.1 g/dL 3.2-4.5 CALCIUM CORRECTED 9.1 mg/dL 8.5-10.1 Magnesium - 05/26/18 13:29 Magnesium 2.3 mg/dL 1.8-2.4 Serum or plasma troponin i.cardiac measu rement (mass/volume) - 05/26/18 13:29 Serum or plasma troponin i.cardiac measurement (mass/v olume) < ng/mL <0.028 Myoglobin, serum - 05/26/18 13:29 Myoglobin, serum 35.3 ng/mL 10.0-92.0 Blood manual differential performed dete ction - 05/26/18 13:29 Blood monocytes/100 leukocytes 29 % NRG Manual blood segmented neutrophils/100 leukocytes 17 % NRG Blood band neutrophils/100 leukocytes 1 % NRG Manual blood lymphocytes/100 leukocytes 49 % NRG Manual eosinophils/100 leukocytes in nose 4 % NRG Manual blood basophils/100 leukocytes 0 % NRG Blood anisocytosis detection by light microscopy S LIGHT NRG Blood macrocytes detection by light microscopy SLI GHT NRG Serum or plasma lithium measurement (mol es/volume) - 05/26/18 13:29 BNP level 49.6 pg/mL <100.0 CMP - 08/07/18 10:39 GLUCOSE 92 mg/dL 65-99 UREA NITROGEN (BUN) 6 mg/dL 7-25 CREATININE 1.11 mg/dL 0.70-1.11 eGFR NON-AFR. CYMRAES 62 mL/min/1.73m2 > OR = 60 eGFR 71 mL/min/1.73m2 > OR = 60 BUN/CREATININE RATIO 5 (calc) 6-22 SODIUM 144 mmol/L 135-146 POTASSIUM 4.0 mmol/L 3.5-5.3 CHLORIDE 109 mmol/L 98-110 CARBON DIOXIDE 28 mmol/L 20-32 CALCIUM 8.8 mg/dL 8.6-10.3 PROTEIN, TOTAL 6.6 g/dL 6.1-8.1 ALBUMIN 4.0 g/dL 3.6-5.1 GLOBULIN 2.6 g/dL (calc) 1.9-3.7 ALBUMIN/GLOBULIN RATIO 1.5 (calc) 1.0-2. 5 BILIRUBIN, TOTAL 0.5 mg/dL 0.2-1.2 ALKALINE PHOSPHATASE 41 U/L 40-115 AST 11 U/L 10-35 ALT 5 U/L 9-46 Cardiac Panel - 03/24/19 08:27 CK 49 U/L 26-174 CK-MB 1.1 ng/ml 0.0-9.2 Myoglobin 35.7 ng/ml 1.6-154.9 Troponin <0.020 ng/mL 0.0-0.4 Urinalysis - 03/24/19 08:37 Icotest N/A Negative Urine Volume Urine Volume Sufficient (10mL) Urine Yeast No Yeast present Urine-Appearance Clear Clear Urine-Bacteria Negative Urine-Bilirubin Negative Negative Urine-Blood Trace-intact Negative Urine-Color Yellow Colorless-[place] ow Urine-Glucose Negative Negative Urine-Ketones Negative Negative Urine-Leukocytes Negative Negative Urine-Mucus 1+ Urine-Nitrite Negative Negative Urine-Other Urine Saved if Culture Need ed (48hrs from time of collection) Urine-pH 7.0 5-8.5 Urine-Protein Negative Negative Urine-RBC 2-5/HPF Urine-Specific [place] 1.015 1.000-1 .030 Urine-WBC Negative Urobilinogen 0.2 E.U./dL 0.2-1.0 Complete blood count (CBC) with automate d white blood cell (WBC) differential - 03/26/19 15:36 Blood leukocytes automated count (number/volume) 2.9 10*3/uL 4.3-11.0 Blood erythrocytes automated count (number/volume) 3.28 10*6/uL 4.35-5.85 Venous blood hemoglobin measurement (mass/volume) 11.0 g/dL 13.3-17.7 Blood hematocrit (volume fraction) 34 % 40-54 Automated erythrocyte mean corpuscular volume 104 [foz_us] 80-99 Automated erythrocyte mean corpuscular h emoglobin (mass per erythrocyte) 34 pg 25-34 Automated erythrocyte mean corpuscular h emoglobin concentration measurement (mass/volume) 32 g/dL 32-36 Automated erythrocyte distribution width ratio 13. 9 % 10.0- 14.5 Automated blood platelet count (count/volume) 142 10*3/uL 130-400 Automated blood platelet mean volume measurement 10.5 [foz_us] 7.4-10.4 Automated blood neutrophils/100 leukocytes 33 % 42-75 Automated blood lymphocytes/100 leukocytes 29 % 12-44 Blood monocytes/100 leukocytes 38 % 0-12 Automated blood eosinophils/100 leukocytes 1 % 0-10 Automated blood basophils/100 leukocytes 0 % 0-10 Blood neutrophils automated count (number/volume) 1.0 10*3 1.8-7.8 Blood lymphocytes automated count (number/volume) 0.8 10*3 1.0-4.0 Blood monocytes automated count (number/volume) 1. 1 10*3 0.0-1.0 Automated eosinophil count 0.0 10*3/uL 0 .0-0.3 Automated blood basophil count (count/volume) 0.0 10*3/uL 0.0-0.1 Comprehensive metabolic panel - 03/26/19 15:36 Serum or plasma sodium measurement (moles/volume) 142 mmol/L 135-145 Serum or plasma potassium measurement (moles/volume) 4.2 mmol/L 3.6-5.0 Serum or plasma chloride measurement (moles/volume) 109 mmol/L 98-107 Carbon dioxide 25 mmol/L 21-32 Serum or plasma anion gap determination (moles/volume) 8 mmol/L 5-14 Serum or plasma urea nitrogen measurement (mass/volume ) 8 mg/dL 7-18 Serum or plasma creatinine measurement (mass/volume) 1.22 mg/dL 0.60-1.30 Serum or plasma urea nitrogen/creatinine mass ratio 7 NRG Serum or plasma creatinine measurement w ith calculation of estimated glomerular filtration rate 57 NRG Serum or plasma glucose measurement (mass/volume) 106 mg/dL 70-105 Serum or plasma calcium measurement (mass/volume) 9.0 mg/dL 8.5-10.1 Serum or plasma total bilirubin measurement (mass/volu me) 0.5 mg/dL 0.1-1.0 Serum or plasma alkaline phosphatase art surement (enzymatic activity/volume) 40 U/L 40-136 Serum or plasma aspartate aminotransfera se measurement (enzymatic activity/volume) 12 U/L 5-34 Serum or plasma alanine aminotransferase measurement (enzymatic activity/volume) 7 U/L 0-55 Serum or plasma protein measurement (mass/volume) 7.1 g/dL 6.4-8.2 Serum or plasma albumin measurement (mass/volume) 4.3 g/dL 3.2-4.5 CALCIUM CORRECTED 8.8 mg/dL 8.5-10.1 THYROID STIMULATING HORMONE - 03/26/19 1 5:36 THYROID STIMULATING HORMONE 0.88 u[iU]/mL 0.35-4.94 Manual absolute plasma cell count - 02/27 15:36 Blood monocytes/100 leukocytes 34 % [facility] Manual blood segmented neutrophils/100 leukocytes 30 % NR Manual blood lymphocytes/100 leukocytes 35 % NR Manual eosinophils/100 leukocytes in nose 1 % NR Blood anisocytosis detection by light microscopy S LIGHT NR Blood poikilocytosis detection by light microscopy SLIGHT NR Blood hypochromia detection by light microscopy SL IGHT [facility] [id number] - 03/26/19 15:36 Screening antinuclear antibody (GROVER) assay by enzyme i mmunoassay Positive <1:80 Serum nuclear antibody pattern interpretation Cent romere [facility] Serum nuclear antibody titer < 1:80 Serum iron and total iron binding capaci ty panel - 03/26/19 15:36 TIBC 341 % 280-380 UIBC 276 % 55-450 Serum or plasma iron measurement (mass/volume) 65 % 40-180 Total iron binding capacity and transferrin saturation measurement 19 % 15-50 Serum or plasma ferritin measurement (mass/volume) 119.3 % 32.0-356.0 VITAMIN B 12 - 03/26/19 15:36 VITAMIN B 12 401 pg/mL 190-1100 EKG - 06/05/19 22:10 EKG Complete Blood Culture - 06/05/19 22:30 PRELIM CULTURE RESULTS Blood Culture Negativ e, No Growth Day 1 MEDIA PLATED Setup at 22:55 on 06/05/2019X [id number] Culture Media Position C41 CULTURE SOURCE drawn @ Right Arm Magnesium - 06/05/19 22:35 Mg++ 2.0 mg/dL 1.6-2.6 Blood Culture - 06/05/19 22:35 PRELIM CULTURE RESULTS Blood Culture Negativ e, No Growth Day 1 MEDIA PLATED Setup at 22:55 on 06/05/2019X [id number] Culture Media Position C46 CULTURE SOURCE drawn @ left arm Quik Strep - 06/05/19 22:36 Quik Strep Negative - confirmation culture set. Negative Influenza - 06/05/19 22:37 Influenza NEGATIVE FOR A and B 0.00-0.0 0 Arterial Blood Gas - 06/05/19 23:48 Base -1.00 mmol/L 1.80-4.20 HCO3 23 mmol/L 20-31 O2 Sat 95 Room Air % 95-100 pCO2 32 mm/Hg 35-45 pH 7.46 7.35-7.45 PO2 72 mm/Hg 80-95 Comprehensive Metabolic Panel - 06/06/19 04:55 Albumin 3.8 g/dL 3.6-5.1 ALP 40 U/L 35-130 ALT 9 U/L 6-45 Anion Gap 15 6-14 AST 19 U/L 2-40 BUN 9 mg/dL 5-25 Calcium 7.8 mg/dL 8.3-10.4 Chloride 104 mmol/L 95-114 CO2 24 mEq/L 22-33 Creat 1.30 mg/dL 0.50-1.50 eGFR 53 mL/min/1.73m2 >59 Globulin 2.7 g/dL 2.3-3.5 Glucose 139 mg/dL 70-110 Osmo 290 280-295 Potassium 3.1 mmol/L 3.5-5.3 Sodium 140 mmol/L 134-148 TBil 0.8 mg/dL 0.2-1.2 TP 6.5 g/dL 6.0-8.3 BNP - 06/06/19 04:55 BNP 32.40 pg/ml 0.00-100.00 Lactic Acid - 06/06/19 08:16 Lactic Acid 17.7 mg/dL 4.5-19.8 Comprehensive Metabolic Panel - 06/07/19 06:45 Albumin 3.6 g/dL 3.6-5.1 ALP 38 U/L 35-130 ALT 9 U/L 6-45 Anion Gap 14 6-14 AST 18 U/L 2-40 BUN 12 mg/dL 5-25 Calcium 7.6 mg/dL 8.3-10.4 Chloride 111 mmol/L 95-114 CO2 21 mEq/L 22-33 Creat 1.43 mg/dL 0.50-1.50 eGFR 47 mL/min/1.73m2 >59 Globulin 2.5 g/dL 2.3-3.5 Glucose 190 mg/dL 70-110 Osmo 300 280-295 Potassium 3.4 mmol/L 3.5-5.3 Sodium 143 mmol/L 134-148 TBil 0.4 mg/dL 0.2-1.2 TP 6.1 g/dL 6.0-8.3 Comprehensive Metabolic Panel - 06/08/19 05:18 Albumin 3.2 g/dL 3.6-5.1 ALP 38 U/L 35-130 ALT 7 U/L 6-45 Anion Gap 12 6-14 AST 13 U/L 2-40 BUN 12 mg/dL 5-25 Calcium 7.7 mg/dL 8.3-10.4 Chloride 114 mmol/L 95-114 CO2 23 mEq/L 22-33 Creat 1.32 mg/dL 0.50-1.50 eGFR 52 mL/min/1.73m2 >59 Globulin 2.4 g/dL 2.3-3.5 Glucose 172 mg/dL 70-110 Osmo 303 280-295 Potassium 4.1 mmol/L 3.5-5.3 Sodium 145 mmol/L 134-148 TBil 0.2 mg/dL 0.2-1.2 TP 5.6 g/dL 6.0-8.3 Rapid Drug Screen + ETOH,Medical - 06/08 04:50 Amphetamine NEGATIVE NEGATIVE Barbiturates NEGATIVE NEGATIVE Benzodiazepines POSITIVE NEGATIVE Cocaine NEGATIVE NEGATIVE Ethanol, Urine <10.00 mg/dL 20.00-80.00 Marijuana NEGATIVE NEGATIVE Methylenedioxymethamphetamine NEGATIVE NEGATIVE Opiates NEGATIVE NEGATIVE Oxycodone NEGATIVE NEGATIVE Phencyclidine NEGATIVE NEGATIVE Propoxyphene NEGATIVE NEGATIVE Tricyclic Antidepressant NEGATIVE NEGAT GAIL Lipid Panel - 06/09/19 06:05 C/HDL 3.9 3.7-6.7 Cholesterol 115 mg/dL 100-240 HDL 28 mg/dL 30-85 LDL-Calculated 63 mg/dL 0-100 Trig 119 mg/dL 35-160 VLDL 24 mg/dL 0-42 Comprehensive Metabolic Panel - 06/25/19 18:53 Albumin 3.9 g/dL 3.6-5.1 ALP 44 U/L 35-130 ALT 10 U/L 6-45 Anion Gap 13 6-14 AST 16 U/L 2-40 BUN 11 mg/dL 5-25 Calcium 8.6 mg/dL 8.3-10.4 Chloride 108 mmol/L 95-114 CO2 25 mEq/L 22-33 Creat 1.27 mg/dL 0.50-1.50 eGFR 54 mL/min/1.73m2 >59 Globulin 2.8 g/dL 2.3-3.5 Glucose 112 mg/dL 70-110 Osmo 293 280-295 Potassium 3.9 mmol/L 3.5-5.3 Sodium 142 mmol/L 134-148 TBil 0.3 mg/dL 0.2-1.2 TP 6.7 g/dL 6.0-8.3 Urinalysis - 06/25/19 19:08 Icotest N/A Negative Urine Volume Urine Volume Sufficient (10mL) Urine Yeast No Yeast present Urine-Appearance Clear Clear Urine-Bacteria Negative Urine-Bilirubin Negative Negative Urine-Blood Trace-intact Negative Urine-Color Yellow Colorless-Lt. [place] ow Urine-Epithelial Cells 0-5/HPF Urine-Glucose Negative Negative Urine-Ketones Negative Negative Urine-Leukocytes Negative Negative Urine-Mucus 1+ Urine-Nitrite Negative Negative Urine-Other Urine Saved if Culture Need ed (48hrs from time of collection) Urine-pH 7.0 5-8.5 Urine-Protein Negative Negative Urine-RBC 0-2/HPF Urine-Specific [place] 1.020 1.000-1 .030 Urine-WBC Nothing Seen on Microscopic Urobilinogen 0.2 0.2-1.0 VIT B-12 - 07/11/19 09:07 Vitamin B12 362.00 pg/mL 213.00-816.00 Cardiac Panel - 07/11/19 11:55 CK 41 U/L 26-174 CK-MB 1.4 ng/ml 0.0-9.2 Myoglobin 37.1 ng/ml 1.6-154.9 Troponin <0.020 ng/mL 0.0-0.4 Encounters ACCT No. Visit Date/Time Discharge Status Pt. Type Provider Facility Loc./Unit Complaint [id number] 08/02/2017 14:26:12 08/02/2017 23:59: 59 CLS Outpatient Bola Martinez [id number] 07/28/2017 10:32:50 07/28/2017 23:59: 59 CLS Outpatient BERTINBOLA W [id number] 09/27/2019 16:39:00 23:59:59 CLS Outpatient LORI SLATER APRN [facility] RAD FS W19.XXXA M25.511 M25.61 1 [id number] 03/26/2019 15:12:00 23:59:59 CLS Outpatient SONDRA HOUSTON [facility] LAB B37.0 [id number] 09/19/2018 00:11:00 23:59:59 CLS Preadmit CARIDAD CHAN [facility] ONC [id number] 06/20/2018 14:10:00 019 00:01:00 DIS Outpatient CARIDAD CHAN V [facility] ONC [id number] 05/26/2018 13:18:00 019 17:13:00 DIS Emergency LISSA ZULUAGA, TATIANA Banks [facility] ER SYNCOPAL EPISODE [id number] 07/24/2017 03:34:00 018 06:23:00 DIS Emergency ARLETTE NAYAK MD [facility] ER DIZZY HEADACHE AB PAIN [id number] 07/11/2017 09:07:00 018 23:59:59 CLS Outpatient ESA LAZO DO [facility] RAD RUQ PAIN,RUQ TENDERNESS,NAUSEA,GI SYMPTOMS [id number] 07/04/2017 09:43:00 23:59:59 CLS Outpatient ESA LAZO DO [facility] RAD RUQ PAIN,RUQ TENDERNESS,NAUSEA [id number] 06/29/2017 11:54:00 23:59:59 CLS Preadmit ESA LAZO DO [facility] RAD RUQ PAIN,RUQ TENDERNESS,NAUSEA,GI SYMPTOMS [id number] 09/24/2016 08:02:00 017 23:59:59 CLS Outpatient SHERI MAZA MD [facility] RAD ABD PAIN,LLQ PAIN [id number] 05/13/2016 09:09:00 017 00:01:00 DIS Outpatient CARIDAD CHAN V [facility] ONC [id number] 03/16/2016 07:14:00 10:16:00 DIS Emergency CHARLENE LUA MD [facility] ER MULTIPLE COMPLA INTS [id number] 01/26/2016 09:27:00 23:59:59 CLS Outpatient JIMBO GAMEZ MD [facility] RAD LYMPHADENITIS [id number] 10/30/2015 06:42:00 23:59:59 CLS Outpatient JIMBO GAMEZ MD [facility] CARD RUQ PAIN [id number] 10/06/2015 11:39:00 15:15:00 DIS Outpatient JIMBO GAMEZ MD [facility] SDC DYSPHAGIA; GERD; UPPER GASTRIC PAIN [id number] 10/03/2015 13:51:00 23:59:59 CLS Outpatient JIMBO GAMEZ MD [facility] PREOP DYSPHAGIA; GERD; UPPER GASTRIC PAIN [id number] 10/03/2015 07:34:00 016 23:59:59 CLS Outpatient JIMBO GAMEZ MD [facility] RAD RUQ PAIN,BACK PAIN [id number] 05/31/2015 07:31:00 016 08:15:00 DIS Emergency FOSTER ZULUAGA, GEORGES Gandhi [facility] ER L EAR PAIN [id number] 09/01/2014 08:58:00 015 09:39:00 DIS Emergency ELIZABETH ZULUAGA, MEGHAN Wong [facility] ER PAIN/MULTIPLE AREAS [id number] 08/09/2014 14:00:00 015 15:58:00 DIS Emergency STONEY ZULUAGA, CHARLENE Sanchez [facility] ER RIGHT EAR PAIN RIGHT SHOULDER/ARM PAIN [id number] 04/19/2016 00:00:00 04/19/2016 23: 59:59 CLS Outpatient CHRISTOPHER JOHNSTON [facility] [id number] 04/06/2016 07:14:00 04/06/2016 13: 00:00 DIS ED [facility] ED [id number] 02/10/2016 14:00:00 02/10/2016 18: 00:00 DIS RB JERILYN [facility] [id number] 01/06/2016 06:59:00 01/06/2016 10: 59:00 DIS BRIANDA MARCELINO [id number] 01/05/2016 14:00:00 01/05/2016 18: 00:00 DIS RB JERILYN [facility] CL [id number] 01/05/2016 14:34:00 01/05/2016 15: 34:00 DIS LO JERILYN [facility] OT [id number] 02/11/2015 14:00:00 02/11/2015 18: 00:00 DIS RB JERILYN [facility] CL [id number] 12/26/2014 09:39:00 12/26/2014 13: 39:00 DIS OP BRIANDA JEAN-BAPTISTE [facility] OT [id number] 12/24/2014 14:15:00 12/24/2014 18: 15:00 DIS RB BRIANDA JEAN-[place]IST[place] [facility] [place] [id number] 10/08/2019 11:30:00 10/08/2019 23:59:5 9 CLS Outpatient POLY ZULUAGA, SCOTTY [facility] [id number] 08/07/2018 09:00:00 Document Registration [id number] 06/01/2017 08:33:16 06/01/2017 08:3 3:16 DIS Outpatient [id number] 07/11/2019 09:06:00 07/11/2019 13:15 :00 DIS Outpatient BRADFORD DENTON APRN [facility] ER [id number] 07/10/2019 17:06:00 07/10/2019 17:45 :00 DIS Outpatient [facility] ER [id number] 06/25/2019 00:00:00 06/25/2019 20:45 :00 DIS Outpatient [facility] ER [id number] 06/12/2019 12:41:00 06/12/2019 14:05 :00 DIS Outpatient [facility] ER [id number] 06/08/2019 11:45:00 06/11/2019 14:00 :00 DIS Inpatient GEORGES FABIAN [facility] [id number] 06/05/2019 21:44:00 06/08/2019 11:10 :00 DIS Inpatient [facility], [facility] enter ICU [id number] 04/17/2019 15:00:00 04/17/2019 23:59 :00 DIS Outpatient MALACHI ZAZUETA [id number] 03/24/2019 07:56:00 03/24/2019 09:55 :00 DIS Outpatient BRADFORD DENTON APRN [facility] ER [id number] 11/25/2018 15:12:00 11/25/2018 23:59: 00 DIS Outpatient Yessi Martinez [id number] 05/13/2017 06:29:00 05/13/2017 09:17: 00 DIS Outpatient CLAU BOLIVAR [id number] 05/11/2017 09:14:00 05/11/2017 11:06: 00 DIS Outpatient GEORGES ARSHAD [facility] [id number] 06/08/2016 11:16:00 06/08/2016 23:59: 00 DIS Outpatient My Duenas [id number] 06/07/2016 11:13:00 06/07/2016 23:59: 00 DIS Outpatient My Duenas [id number] 03/11/2016 15:11:00 03/11/2016 23:59: 00 DIS Outpatient Yin Ramos [id number] 05/11/2017 11:02:18 Document Registration
== END 2019-10-16 17:41 | disposition home or self-care (01) ==
LOC: EDUNIT# 16:59 → ER FS 17:00
DX: R20.2 Paresthesia of skin (principal); M79.661 Pain in right lower leg; R25.1 Tremor, unspecified; Z79.82 Long term (current) use of aspirin
CPT/HCPCS: 99283

== ENCOUNTER 2019-11-24 15:55 | Emergency (ER) | payer MEDICARE, MEDICAID ==
[~2019-11-24] VITALS: Ht 170.1 cm; Wt 92.8 kg
[2019-11-24 16:12] VITALS: BP 141/75
[2019-11-24 16:34] LABS: BASOPHILS % (AUTO) 1 % (0-10); EOSINOPHILS % (AUTO) 1 % (0-10); HEMATOCRIT 36 % (40-54); HEMOGLOBIN 12.1 G/DL (13.3-17.7); LYMPHOCYTES % (AUTO) 36 % (12-44); MEAN CORPUSCULAR HEMOGLOBIN 35 PG (25-34); MEAN CORPUSCULAR HGB CONC 34 G/DL (32-36); MEAN CORPUSCULAR VOLUME 102 FL (80-99); MEAN PLATELET VOLUME 11.2 FL (7.4-10.4); MONOCYTES % (AUTO) 28 % (0-12); NEUTROPHILS % (AUTO) 34 % (42-75); PLATELET COUNT 121 10^3/uL (130-400); RED CELL DISTRIBUTION WIDTH 14.5 % (10.0-14.5); WHITE BLOOD COUNT 3.2 10^3/uL (4.3-11.0)
[2019-11-24 16:35] LABS: LYMPHOCYTES # (AUTO) 1.1 X 10^3 (1.0-4.0); MONOCYTES # (AUTO) 0.9 X 10^3 (0.0-1.0); NEUTROPHILS # (AUTO) 1.1 X 10^3 (1.8-7.8)
[2019-11-24 16:53] LABS: CALCIUM 9.4 MG/DL (8.5-10.1); CREATININE SERUM 1.19 MG/DL (0.60-1.30); POTASSIUM 3.6 MMOL/L (3.6-5.0)
--- NOTE | 2019-11-24 17:08 | ED Lower Extremity ---
General Chief Complaint: Lower Extremity Stated Complaint: RT LEG PAIN Nursing Triage Note: Patient presents to ED with c/o of right calf pain. He states that he is uncertain when the pain started but thinks it has been at least a couple of weeks. He was seen at the [facility] Walk[facility] clinic and sent to the ED for further evaluation. He also reports that he has an follow up appointment with his regular provider TuesdayNovember 25. Nursing Sepsis Screen: No Definite Risk Source: patient History of Present Illness Date Seen by Provider: Nov 24, 2019 Time Seen by Provider: 16:00 Initial Comments Patient is an 83-year-old male presents with chronic intermittent right leg pain for 3 months. Patient was evaluated in [facility] care earlier today and referred to his PCP on Tuesday. However given the patient was continuing to have pain during the visit he was then instructed to the emergency department prior to following up with his PCP in 2 days. Patient denies trauma. Reports posterior knee and calf pain with ambulation but denies tenderness to palpation or pain at rest. No medications or therapies taken prior to ED arrival. Patient has been evaluated for this condition and emergency department but has not seen a PCP in follow-up. Denies chest pain palpitations, shortness of breath history of DVT or PE. No other acute symptoms or complaints. Onset: other Severity: moderate Pain/Injury Location: right leg, right knee Method of Injury: unknown Modifying Factors: Improves With Movement Allergies and Home Medications Allergies Uncoded Allergies: BEES (Allergy, Severe, 05/26/18) Home Medications Acetaminophen 325 Mg Tablet, 650 MG PO Q4H, (Reported) Aspirin 81 Mg Tablet.dr, 162 MG PO DAILY, (Reported) Patient Home Medication List Home Medication List Reviewed: Yes Review of Systems Constitutional: see HPI EENTM: see HPI Respiratory: see HPI Cardiovascular: see HPI Gastrointestinal: see HPI Genitourinary: see HPI Musculoskeletal: see HPI Skin: see HPI Psychiatric/Neurological: See HPI Past Cfrcumk-Pkohvt-Mazdbb Hx Past Med/Social Hx: Reviewed Nursing Past Med/Soc Hx Patient Social History Alcohol Use: Occasionally Uses Number of Drinks Today: AA Alcohol Beverage of Choice: Beer Recreational Drug Use: No Smoking Status: Never a Smoker 2nd Hand Smoke Exposure: No Recent Foreign Travel: No Contact w/Someone Who Travel: No Recent Infectious Disease Expo: No Recent Hopitalizations: No Physical Abuse: No Sexual Abuse: No Mistreated: No Fear: No Seasonal Allergies Seasonal Allergies: No Past Medical History 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 pylori) Musculoskeletal: No Endocrine: No Cancer: No Psychosocial: No Integumentary: No Blood Disorders: No Family Medical History No Pertinent Family Hx Physical Exam Vital Signs Vital Signs - First Documented 11/24/19 16:12 Temp 36.9 Pulse 85 Resp 17 B/P (MAP) 141/75 (97) Pulse Ox 96 Capillary Refill : Less Than 3 Seconds Height, Weight, BMI Height: 5'7.00" Weight: 200lbs. 0.0oz. 90.543335fo; 32.00 BMI Method:Stated General Appearance: WD/WN, no apparent distress HEENT: PERRL/EOMI, normal ENT inspection Neck: non-tender, full range of motion, supple Cardiovascular: normal peripheral pulses, regular rate, rhythm Respiratory: chest non-tender, lungs clear, normal breath sounds Gastrointestinal: soft Hips: bilateral hip non-tender, bilateral hip normal inspection Legs: right leg pain, right leg other (no redness, swelling, warmth, tenderness to palpation. No palpable patellar masses.) Progress/Results/Core Measures Results/Orders Lab Results Laboratory Tests Test 11/24/19 16:26 Range/Units White Blood Count 3.2 L 4.3-11.0 10^3/uL Red Blood Count 3.49 L 4.35-5.85 10^6/uL Hemoglobin 12.1 L 13.3-17.7 G/DL Hematocrit 36 L 40-54 % Mean Corpuscular Volume 102 H 80-99 FL Mean Corpuscular Hemoglobin 35 H 25-34 PG Mean Corpuscular Hemoglobin Concent 34 32-36 G/DL Red Cell Distribution Width 14.5 10.0-14.5 % Platelet Count 121 L 130-400 10^3/uL Mean Platelet Volume 11.2 H 7.4-10.4 FL Neutrophils (%) (Auto) 34 L 42-75 % Lymphocytes (%) (Auto) 36 12-44 % Monocytes (%) (Auto) 28 H 0-12 % Eosinophils (%) (Auto) 1 0-10 % Basophils (%) (Auto) 1 0-10 % Neutrophils # (Auto) 1.1 L 1.8-7.8 X 10^3 Lymphocytes # (Auto) 1.1 1.0-4.0 X 10^3 Monocytes # (Auto) 0.9 0.0-1.0 X 10^3 Eosinophils # (Auto) 0.0 0.0-0.3 10^3/uL Basophils # (Auto) 0.0 0.0-0.1 10^3/uL Sodium Level 141 135-145 MMOL/L Potassium Level 3.6 3.6-5.0 MMOL/L Chloride Level 103 98-107 MMOL/L Carbon Dioxide Level 25 21-32 MMOL/L Anion Gap 13 5-14 MMOL/L Blood Urea Nitrogen 6 L 7-18 MG/DL Creatinine 1.19 0.60-1.30 MG/DL Estimat Glomerular Filtration Rate 58 BUN/Creatinine Ratio 5 Glucose Level 116 H 70-105 MG/DL Calcium Level 9.4 8.5-10.1 MG/DL Magnesium Level 2.0 1.6-2.4 MG/DL My Orders Orders - GERMAN RUCKER DO Cbc With Automated Diff (11/24/19 16:10) Basic Metabolic Panel (11/24/19 16:10) Magnesium (11/24/19 16:10) Vital Signs/I&O 11/24/19 16:12 Temp 36.9 Pulse 85 Resp 17 B/P (MAP) 141/75 (97) Pulse Ox 96 Blood Pressure Mean: 97 Departure Communication (Admissions) Chronic intermittent right leg pain history of leukopenia. Basic labs reviewed. No acute findings. Vital signs stable. Recommend following up with PCP in 2 days for further evaluation. Impression Primary Impression: Leukopenia Additional Impression: Right leg pain Disposition: HOME, SELF-CARE Condition: Stable/Unchanged Departure-Patient Inst. Decision time for Depature: 17:00 Add. Discharge Instructions: Please follow up with your PCP on Tuesday as scheduled and review today's ED labs. Take home pain medications as needed. All discharge instructions reviewed with patient and/or family. Voiced understanding. GERMAN RUCKER DO Nov 24, 2019 17:08
== END 2019-11-24 17:12 | disposition home or self-care (01) ==
LOC: EDUNIT# 15:55 → ER FS 15:57
DX: D72.819 Decreased white blood cell count, unspecified (principal); M79.604 Pain in right leg; Z91.030 Bee allergy status; Z79.82 Long term (current) use of aspirin
CPT/HCPCS: 36415; 80048; 83735; 85025; 99283

== ENCOUNTER 2019-12-30 11:40 | Emergency (ER) | payer MEDICARE, MEDICAID ==
[~2019-12-30 11:40] MED LIST changes: +ASPI-1238 PO; -ASPI-983 PO
[2019-12-30 11:46] VITALS: BP 175/90
--- NOTE | 2019-12-30 11:55 | ED Lower Extremity ---
General Chief Complaint: Lower Extremity Stated Complaint: RT LEG PAIN Nursing Triage Note: complaining of R leg pain x 3 days, but has been going on for 6 months. Has been seen at [facility] in [facility] and states he had xrays. States is having pain from buttocks down to big toe. Also having lower back pain. Nursing Sepsis Screen: No Definite Risk Source: patient, RN/MD, RN notes reviewed, old records History of Present Illness Date Seen by Provider: Dec 30, 2019 Time Seen by Provider: 11:40 Initial Comments This patient is a 84-year-old male presents to the emergency department with low back pain and pain in the posterior leg. Patient states she's had this pain for about 6 months and seems to be getting worse. Patient states it hurts in the middle of his right cheek of his buttocks. Patient states he was seen in the [facility] a few days ago sustaining an x-ray of the leg was normal but wasn't given any medications. Patient states he gets so bad when he is laying in bed that he can't sleep. Patient denies fever. We'll do medical evaluation treatment is needed Onset: other (for the past 6 months) Pain/Injury Location: right leg Allergies and Home Medications Allergies Uncoded Allergies: BEES (Allergy, Severe, 05/26/18) Home Medications Acetaminophen 325 Mg Tablet, 650 MG PO Q4H, (Reported) Aspirin 81 Mg Tablet.dr, 162 MG PO DAILY, (Reported) Patient Home Medication List Home Medication List Reviewed: Yes Review of Systems Constitutional: No no symptoms reported, No see HPI, No chills, No diaphoresis, No dizziness, No fever, No malaise, No weakness, No weight gain, No weight loss, No other EENTM: No see HPI, No no symptoms reported, No ear discharge, No hearing loss, No ear pain, No blurred vision, No double vision, No eye pain, No tearing, No vision loss, No dental problems, No hoarseness, No mouth pain, No mouth swelling, No epistaxis, No nose congestion, No nose pain, No throat pain, No throat swelling, No other Respiratory: No no symptoms reported, No see HPI, No cough, No dyspnea on exertion, No hemoptysis, No orthopnea, No phlegm, No short of breath, No stridor, No wheezing, No other Cardiovascular: No no symptoms reported, No see HPI, No chest pain, No edema, No Hx of Intervention, No palpitations, No syncope, No vascular heart diseas, No other Gastrointestinal: No RUQ, No LUQ, No RLQ, No LLQ, No no symptoms reported, No see HPI, No abdominal pain, No constipation, No diarrhea, No dysphagia, No hematemesis, No heartburn, No jaundice, No loss of appetite, No melena, No nausea, No vomiting, No other Musculoskeletal: No no symptoms reported; see HPI, back pain; No gout, No joint pain, No joint swelling; muscle pain; No muscle stiffness, No muscle cramps, No muscle twitching, No muscle weakness, No neck pain, No other Skin: No no symptoms reported, No see HPI, No change in color, No change in hair/nails, No dryness, No hx of skin cancer, No lesions, No lumps, No pruritus, No rash, No other All Other Systems Reviewed Negative Unless Noted: Yes Past Launsgf-Iryrxd-Gpankg Hx Patient Social History Alcohol Beverage of Choice: Beer 2nd Hand Smoke Exposure: No Recent Foreign Travel: No Contact w/Someone Who Travel: No Recent Infectious Disease Expo: No Recent Hopitalizations: No Seasonal Allergies Seasonal Allergies: No Past Medical History Surgeries: Yes (TUMOR REMOVED UNDER R EAR) Adenoidectomy, Tonsillectomy Respiratory: No Cardiac: No Neurological: Yes (chronic tremors) Reproductive Disorders: No Genitourinary: No Gastrointestinal: Yes (H. pylori) Musculoskeletal: No Endocrine: No Cancer: No Psychosocial: No Integumentary: No Blood Disorders: No Family Medical History No Pertinent Family Hx Physical Exam Vital Signs Vital Signs - First Documented 12/30/19 11:46 Temp 36.5 Pulse 90 Resp 16 B/P (MAP) 175/90 (118) Pulse Ox 99 Capillary Refill : Less Than 3 Seconds Height, Weight, BMI Height: 5'7.00" Weight: 200lbs. 0.0oz. [id number]; 32.00 BMI Method:Stated General Appearance: WD/WN, no apparent distress Cardiovascular: normal peripheral pulses, regular rate, rhythm, no edema, no gallop, no JVD, no murmur Respiratory: chest non-tender, lungs clear, normal breath sounds, no respiratory distress, no accessory muscle use Gastrointestinal: normal bowel sounds, non tender, soft, no organomegaly, no pulsatile mass Back: normal inspection, no CVA tenderness, no vertebral tenderness, other (pain and right low back on palpation. Pain around the piriformis muscle and right hip buttock area.) Legs: right leg non-tender, right leg normal inspection, right leg normal range of motion, right leg no evidence of injury Knees: right knee non-tender, right knee normal inspection, right knee normal range of motion, right knee no evidence of injury Ankles: right ankle non-tender, right ankle normal inspection, right ankle normal range of motion, right ankle no evidence of injury Feet: right foot non-tender, right foot normal inspection, right foot normal range of motion, right foot no evidence of injury Reflexes: 2+ knee (R), 2+ knee (L), 2+ ankle (R), 2+ ankle (L) Skin: normal color, warm/dry Progress/Results/Core Measures Results/Orders My Orders Orders - CELIA ISSA MD Lumbar Spine 2 Or 3 View (12/30/19 11:51) Vital Signs/I&O 12/30/19 11:46 Temp 36.5 Pulse 90 Resp 16 B/P (MAP) 175/90 (118) Pulse Ox 99 Blood Pressure Mean: 118 Progress Progress Note : Time: 12:21 Progress Note Lumbar spine x-rays. FINDINGS: Frontal and lateral views of the lumbar spine demonstrates some wedging of the L1 vertebral body which is unchanged. Diffuse anterior osteophytes present. Facet arthropathy is present at L5-S1 greater than L4-L5. Disc space narrowing is present at L2-L3, L4-L5 and L5-S1. IMPRESSION: There are no acute findings to the lumbar spine. Patient appears to have degenerative joint disease of lumbar spine with their agreement spinal canal causing low back pain and sciatica to the right leg. His been chronic for the past 6 months. Patient will be given a prescription for Flexeril. Patient is to continue his Tylenol. Patient is to be evaluated by his primary care physician and may need to be evaluated by neurosurgery in the future. Patient be discharged home with following instructions. Heating pad as tolerated then alternate heat and ice when necessary as needed. Flexeril as instructed for pain. Continue Tylenol as instructed. Follow-up with your primary care physician for further evaluation and pain management. Discuss at length with your physician about possible referral to neurosurgery for further evaluation of the low back issues. 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 Decision time for Depature: 12:23 Referrals: SELF,RAMILA ZULUAGA Patient Instructions: Sciatica (DC), Low Back Pain (DC) Add. Discharge Instructions: Heating pad as tolerated then alternate heat and ice when necessary as needed. Flexeril as instructed for pain. Continue Tylenol as instructed. Follow-up with your primary care physician for further evaluation and pain management. Discuss at length with your physician about possible referral to neurosurgery for further evaluation of the low back issues. All discharge instructions reviewed with patient and/or family. Voiced understanding. Scripts Cyclobenzaprine HCl (Cyclobenzaprine HCl) 10 Mg Tablet 10 MG PO Q8H PRN for SPASMS, #15 TAB 0 Refills Prov: CELIA ISSA MD 12/30/19 CELIA ISSA MD Dec 30, 2019 11:55
--- NOTE | 2019-12-30 12:16 | Diagnostic Imaging Report ---
INDICATION: Back pain with right-sided sciatica. Comparison studies: CT of the abdomen from 2018. FINDINGS: Frontal and lateral views of the lumbar spine demonstrates some wedging of the L1 vertebral body which is unchanged. Diffuse anterior osteophytes present. Facet arthropathy is present at L5-S1 greater than L4-L5. Disc space narrowing is present at L2-L3, L4-L5 and L5-S1. IMPRESSION: There are no acute findings to the lumbar spine. Dictated by: Dictated on workstation # [id number]
[2019-12-30] MEDS ORDERED: CYCL10TA9 PO (12:24)
[2019-12-30] MEDS ORDERED: CYCLOBENZAPRINE 10 MG (FLEXERIL) TAB PO STA (12:24)
== END 2019-12-30 12:30 | disposition home or self-care (01) ==
LOC: EDUNIT# 11:40 → ER FS 11:42
DX: M54.41 Lumbago with sciatica, right side (principal); M54.17 Radiculopathy, lumbosacral region; Z79.82 Long term (current) use of aspirin; Z91.030 Bee allergy status
CPT/HCPCS: 72100

== ENCOUNTER → 2020-01-23 | Outpatient (CLI) | payer OTHER, MEDICARE, MEDICAID ==
[~2020-01-23] MED LIST changes: +CYCL10TA9 PO
== END ==
LOC: GIR 12:15
PROVIDERS: ATTEND Nurse Practitioner Family
DX: Z20.828 Contact with and (suspected) exposure to other viral communicable diseases (principal)
CPT/HCPCS: 87635

== ENCOUNTER 2020-10-26 17:26 | Emergency (ER) | payer MEDICARE, MEDICAID ==
[~2020-10-26] VITALS: Ht 167 cm; Wt 86.1 kg
[2020-10-26] MEDS ORDERED: NS IV 1000 ML 1,000 ML IV ONE (17:45)
[2020-10-26 17:48] LABS: BASOPHILS % (AUTO) 1 % (0-10); EOSINOPHILS % (AUTO) 1 % (0-10); HEMATOCRIT 33 % (40-54); HEMOGLOBIN 10.6 g/dL (13.3-17.7); LYMPHOCYTES # (AUTO) 1.1 10^3/uL (1.0-4.0); LYMPHOCYTES % (AUTO) 40 % (12-44); MEAN CORPUSCULAR HEMOGLOBIN 34 pg (25-34); MEAN CORPUSCULAR HGB CONC 32 g/dL (32-36); MEAN CORPUSCULAR VOLUME 106 fL (80-99); MEAN PLATELET VOLUME 9.9 fL (9.0-12.2); MONOCYTES # (AUTO) 1.2 10^3/uL (0.0-1.0); MONOCYTES % (AUTO) 44 % (0-12); NEUTROPHILS # (AUTO) 0.3 10^3/uL (1.8-7.8); NEUTROPHILS % (AUTO) 11 % (42-75); PLATELET COUNT 141 10^3/uL (130-400); WHITE BLOOD COUNT 2.8 10^3/uL (4.3-11.0)
--- NOTE | 2020-10-26 17:52 | ED Syncope ---
General Chief Complaint: Dizziness/Syncope Stated Complaint: SYNCOPAL EPISODE Source of Information: Patient Exam Limitations: No Limitations History of Present Illness Date Seen by Provider: Oct 26, 2020 Time Seen by Provider: 17:33 Initial Comments This is an 84-year-old male who presents to the ER via POV. States that his neighbor brought him out because he experienced a syncopal episode at home. States that he was walking to his room when he must of passed out on his bed. States he woke and called his neighbor to bring him to ER to be evaluated. States he did not fall, no head trauma, no injuries. Allergies and Home Medications Allergies Uncoded Allergies: BEES (Allergy, Severe, 05/26/18) Home Medications Acetaminophen 325 Mg Tablet, 650 MG PO Q4H, (Reported) Aspirin 81 Mg Tablet.dr, 162 MG PO DAILY, (Reported) Cyclobenzaprine HCl 10 Mg Tablet, 10 MG PO Q8H PRN for SPASMS Prescribed by: CELIA ISSA on 12/30/19 1224 Past Inaphok-Qnttcc-Nuvivt Hx Seasonal Allergies Seasonal Allergies: No Past Medical History Surgeries: Yes (TUMOR REMOVED UNDER R EAR) Adenoidectomy, Tonsillectomy Respiratory: No Cardiac: No Neurological: Yes (chronic tremors) Reproductive Disorders: No Genitourinary: No Gastrointestinal: Yes (H. pylori) Musculoskeletal: No Endocrine: No Cancer: No Psychosocial: No Integumentary: No Blood Disorders: No Family Medical History No Pertinent Family Hx Physical Exam Vital Signs Vital Signs - First Documented 10/26/20 17:30 Temp 36.7 Pulse 72 Resp 18 B/P (MAP) 130/70 (90) Pulse Ox 97 O2 Delivery Room Air Capillary Refill : Height, Weight, BMI Height: 5'7.00" Weight: 200lbs. 0.0oz. 90.877597en; 32.00 BMI Method:Stated Progress/Results/Core Measures Results/Orders Lab Results Laboratory Tests Test 10/26/20 17:40 Range/Units White Blood Count 2.8 L 4.3-11.0 10^3/uL Red Blood Count 3.10 L 4.30-5.52 10^6/uL Hemoglobin 10.6 L 13.3-17.7 g/dL Hematocrit 33 L 40-54 % Mean Corpuscular Volume 106 H 80-99 fL Mean Corpuscular Hemoglobin 34 25-34 pg Mean Corpuscular Hemoglobin Concent 32 32-36 g/dL Red Cell Distribution Width 13.4 10.0-14.5 % Platelet Count 141 130-400 10^3/uL Mean Platelet Volume 9.9 9.0-12.2 fL Immature Granulocyte % (Auto) 3 % Neutrophils (%) (Auto) 11 L 42-75 % Lymphocytes (%) (Auto) 40 12-44 % Monocytes (%) (Auto) 44 H 0-12 % Eosinophils (%) (Auto) 1 0-10 % Basophils (%) (Auto) 1 0-10 % Neutrophils # (Auto) 0.3 L 1.8-7.8 10^3/uL Lymphocytes # (Auto) 1.1 1.0-4.0 10^3/uL Monocytes # (Auto) 1.2 H 0.0-1.0 10^3/uL Eosinophils # (Auto) 0.0 0.0-0.3 10^3/uL Basophils # (Auto) 0.0 0.0-0.1 10^3/uL Immature Granulocyte # (Auto) 0.1 0.0-0.1 10^3/uL Neutrophils % (Manual) 15 % Lymphocytes % (Manual) 40 % Monocytes % (Manual) 42 % Eosinophils % (Manual) 1 % Myelocytes % 2 % Blood Morphology Comment NORMAL Prothrombin Time 14.7 12.2-14.7 SEC INR Comment 1.1 0.8-1.4 Activated Partial Thromboplast Time 37 H 24-35 SEC D-Dimer 2.35 H 0.00-0.49 UG/ML Sodium Level 142 135-145 MMOL/L Potassium Level 3.9 3.6-5.0 MMOL/L Chloride Level 105 98-107 MMOL/L Carbon Dioxide Level 25 21-32 MMOL/L Anion Gap 12 5-14 MMOL/L Blood Urea Nitrogen 12 7-18 MG/DL Creatinine 1.27 0.60-1.30 MG/DL Estimat Glomerular Filtration Rate 54 BUN/Creatinine Ratio 9 Glucose Level 92 70-105 MG/DL Calcium Level 8.7 8.5-10.1 MG/DL Corrected Calcium 8.7 8.5-10.1 MG/DL Magnesium Level 2.0 1.6-2.4 MG/DL Total Bilirubin 0.4 0.1-1.0 MG/DL Aspartate Amino Transf (AST/SGOT) 18 5-34 U/L Alanine Aminotransferase (ALT/SGPT) 6 0-55 U/L Alkaline Phosphatase 58 40-136 U/L Myoglobin 49.5 10.0-92.0 NG/ML Troponin I < 0.028 <0.028 NG/ML B-Type Natriuretic Peptide 55.0 <100.0 PG/ML Total Protein 7.1 6.4-8.2 GM/DL Albumin 4.0 3.2-4.5 GM/DL My Orders Orders - BRADFORD DENTON [employer] SERVICE SUPERVISOR Cbc With Automated Diff (10/26/20 17:31) Magnesium (10/26/20 17:31) Chest 1 View, Ap/Pa Only (10/26/20 17:31) Ekg Tracing (10/26/20 17:31) Comprehensive Metabolic Panel (10/26/20 17:31) Myoglobin Serum (10/26/20 17:31) Protime With Inr (10/26/20 17:31) Partial Thromboplastin Time (10/26/20 17:31) O2 (10/26/20 17:31) Monitor-Rhythm Ecg Trace Only (10/26/20 17:31) Ed Iv/Invasive Line Start (10/26/20 17:31) BNP (10/26/20 17:31) Troponin I (10/26/20 17:31) Ns Iv 1000 Ml (Sodium Chloride 0.9%) (10/26/20 17:45) Manual Differential (10/26/20 17:40) Fibrin Degradation Products (10/26/20 17:40) Ct Head Wo (10/26/20 18:56) Medications Given in ED Current Medications Medications Dose Ordered Sig/Jay Route Start Time Stop Time Status Last Admin Dose Admin Sodium Chloride 1,000 ml @ 999 mls/hr Q1H ONCE IV 10/26/20 17:45 10/26/20 18:45 DC 10/26/20 17:51 999 MLS/HR Vital Signs/I&O 10/26/20 17:30 Temp 36.7 Pulse 72 Resp 18 B/P (MAP) 130/70 (90) Pulse Ox 97 O2 Delivery Room Air Departure Impression Primary Impression: Dizziness Additional Impression: Fainting spell Disposition: 01 HOME, SELF-CARE Condition: Improved Departure-Patient Inst. Decision time for Depature: 19:51 Referrals: SCOTTY PANG MD (PCP/Family) Primary Care Physician Patient Instructions: Syncope (Fainting) (DC), Near Fainting (DC) Add. Discharge Instructions: Plan: 1. Drink plenty of fluids. 2. Follow up with your doctor next week. 3. Return for any new, concerning, or worsening symptoms. All discharge instructions reviewed with patient and/or family. Voiced understanding. BRADFORD [employer] SERVICE SUPERVISOR Oct 26, 2020 17:52
[2020-10-26 17:57] LABS: POTASSIUM 3.9 MMOL/L (3.6-5.0)
[2020-10-26 17:58] LABS: CALCIUM 8.7 MG/DL (8.5-10.1)
[2020-10-26 18:00] LABS: TOTAL PROTEIN 7.1 GM/DL (6.4-8.2)
[2020-10-26 18:01] LABS: BILIRUBIN,TOTAL 0.4 MG/DL (0.1-1.0)
[2020-10-26 18:03] LABS: CREATININE SERUM 1.27 MG/DL (0.60-1.30)
[2020-10-26 18:05] LABS: FIBRIN DEGRADATION PRODUCTS 2.35 UG/ML (0.00-0.49); INR 1.1 (0.8-1.4); PROTHROMBIN TIME PATIENT 14.7 SEC (12.2-14.7)
--- NOTE | 2020-10-26 18:36 | Diagnostic Imaging Report ---
INDICATION: Chest pain, dizziness. TECHNIQUE: Single view chest 6:28 p.m. CORRELATION STUDY: 05/26/2018. FINDINGS: Heart size remains enlarged, mediastinum prominent but appears generally stable. Vasculature overall appears unchanged. Generally stable appearance about the lung parenchyma. No definitive infiltrate. Unchanged mildly elevated right diaphragm. IMPRESSION: Generally stable chest with cardiac enlargement. No evidence of overt failure; otherwise, no acute findings of the chest. Dictated by: Dictated on workstation # [id number]
[2020-10-26 18:43] LABS: NEUTROPHILS % (MANUAL) 15 %
[2020-10-26 18:44] LABS: EOSINOPHILS % (MANUAL) 1 %; LYMPHOCYTES % (MANUAL) 40 %; MONOCYTES % (MANUAL) 42 %; MYELOCYTES % 2 %; RBC MORPH NORMAL
--- NOTE | 2020-10-26 19:37 | Diagnostic Imaging Report ---
PROCEDURE: CT head without contrast. TECHNIQUE: Multiple contiguous axial images were obtained through the brain without the use of intravenous contrast. Auto Exposure Controls were utilized during the CT exam to meet ALARA standards for radiation dose reduction. INDICATION: Dizziness, increased with movement. Question passed out. Headache present x6 months from a fall 6 months ago. CORRELATION: 05/26/2018 FINDINGS: There are diffuse atrophic changes with prominence of the ventricles and sulci. There are scattered areas of decreased attenuation, nonspecific but likely changes of chronic small vessel ischemic disease. There is otherwise normal huizar-white differentiation. No abnormal areas of attenuation to suggest edema from ischemia. There is no midline shift or mass effect. Prominent intracranial vascular calcification. No evidence for acute intracranial hemorrhage or abnormal extra-axial fluid collection. Bony calvarium is intact. Paranasal sinuses are clear. Mastoid air cells also appear clear. IMPRESSION: 1. No CT evidence for acute intracranial abnormality. 2. Age-related atrophic changes with changes of small vessel ischemic disease. Dictated by: Dictated on workstation # [id number]
[2020-10-26 19:59] VITALS: BP 146/72
== END 2020-10-26 19:59 | disposition home or self-care (01) ==
LOC: EDUNIT# 17:26 → ER 17:28
DX: R42 Dizziness and giddiness (principal); R55 Syncope and collapse; Z79.82 Long term (current) use of aspirin
CPT/HCPCS: 36415; 70450; 71045; 80053; 83735; 83874; 83880; 84484; 85007; 85027; 85379; 85610; 85730; 93005; 93041

== ENCOUNTER 2020-11-10 07:36 | Emergency (ER) | payer MEDICARE, MEDICAID ==
[~2020-11-10] VITALS: Ht 167 cm; Wt 68.0 kg
--- NOTE | 2020-11-10 08:26 | ED General ---
General Chief Complaint: Dizziness/Syncope Stated Complaint: MOUTH PAIN-S/P TEETH EXTRACTION, DIZZINESS, VAZQUEZ Source of Information: Patient Exam Limitations: No Limitations (HUGO DERAS STUDENT) History of Present Illness Date Seen by Provider: Nov 10, 2020 Time Seen by Provider: 08:00 Initial Comments Pt presents to ED via private conveyance with complaints of dizziness, headache, and a suture left in place from surgery 2weeks ago. He states that he had some teeth removed from his L upper mouth 2 weeks ago and wants the suture removed. He denies fevers, chills, no complaints of mouth pain. He has been having chronic dizziness and a headache that he takes medications for but states that they dont work. He states that he takes [facility] but is unable to state what medications he takes. Denies chest pain, SOB, N/V. Timing/Duration: Other (tooth removal 2 weeks ago) Associated Systoms: No Chest Pain, No Cough, No Fever/Chills; Headaches; No Nausea/Vomiting, No Shortness of Air (HUGO DERAS STUDENT) Allergies and Home Medications Allergies Uncoded Allergies: BEES (Allergy, Severe, 05/26/18) Home Medications Acetaminophen 325 Mg Tablet, 650 MG PO Q4H, (Reported) Aspirin 81 Mg Tablet.dr, 162 MG PO DAILY, (Reported) Cyclobenzaprine HCl 10 Mg Tablet, 10 MG PO Q8H PRN for SPASMS Prescribed by: CELIA ISSA on 12/30/19 1224 Patient Home Medication List Home Medication List Reviewed: Yes (HUGO DERAS STUDENT) Review of Systems Review of Systems Constitutional: No chills; dizziness (chronic dizziness); No fever EENTM: No hearing loss, No blurred vision, No vision loss, No mouth pain, No mouth swelling Respiratory: No cough, No dyspnea on exertion, No short of breath (pt states ) Cardiovascular: No chest pain, No edema, No palpitations Gastrointestinal: No abdominal pain, No constipation, No diarrhea, No dysphagia, No heartburn Genitourinary: No discharge, No dysuria, No hematuria Musculoskeletal: back pain (complaints of chronic R sided back/flank pain going down into his RLE); No joint pain Skin: No change in color, No change in hair/nails Psychiatric/Neurological: Headache; Denies Numbness, Denies Paresthesia, Denies Tingling (HUGO DERAS) All Other Systems Reviewed Negative Unless Noted: Yes (HUGO DERAS) Past Qqrkaqb-Nfznxa-Qxdtlu Hx Patient Social History Tobacco Use?: No Smoking Status: Never a Smoker Substance use?: No Alcohol Use?: Yes Alcohol type: Beer Alcohol Frequency: Once in a while Pt feels they are or have been: No (HUGO DERAS) Tobacco Use?: No Use of E-Cig and/or Vaping dev: No Substance use?: No (ARLETTE NAYAK) Immunizations Up To Date First/Initial COVID19 Vaccinat: 2020 Second COVID19 Vaccination Bryant: 2020 COVID19 Vaccine Armored Vehicle Officer: UNKNOWN 2 DOSE SERIES (HUGO DERAS) Seasonal Allergies Seasonal Allergies: No (HUGO DERAS) Past Medical History Surgery/Hospitalization HX: 6 TEETH REMOVED X2 WEEKS AGO. 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 pylori) Musculoskeletal: No Endocrine: No Cancer: No Psychosocial: No Integumentary: No Blood Disorders: No (HUGO DERAS) Family Medical History No Pertinent Family Hx (HUGO DERAS) Physical Exam Vital Signs Vital Signs - First Documented 11/10/20 08:15 Temp 36.2 Pulse 77 Resp 14 B/P (MAP) 109/99 (102) Pulse Ox 99 O2 Delivery Room Air (ARLETTE NAYAK) Vital Signs Capillary Refill : (HUGO DERAS) Height, Weight, BMI Height: 5'7.00" Weight: 200lbs. 0.0oz. 90.067137vh; 30.00 BMI Method:Stated General Appearance: No Apparent Distress Eyes: Bilateral Eye Normal Inspection, Bilateral Eye PERRL, Bilateral Eye EOMI HEENT: PERRL/EOMI, TMs Normal, Normal ENT Inspection, Moist Mucous Membranes, Other (Poor dentition, suture in place to anterior L upper mouth, no drainage/swelling/erythema noted) Neck: Full Range of Motion, Normal Inspection, Non Tender, Supple Respiratory: Chest Non Tender, Lungs Clear, Normal Breath Sounds, No Accessory Muscle Use, No Respiratory Distress Cardiovascular: Regular Rate, Rhythm, No Edema, Normal Peripheral Pulses Gastrointestinal: Normal Bowel Sounds, Non Tender, Soft Rectal: Deferred Back: Normal Inspection, No CVA Tenderness, No Vertebral Tenderness Extremity: Normal Capillary Refill, Normal Inspection, Normal Range of Motion, Non Tender, No Pedal Edema Neurologic/Psychiatric: Alert, Oriented x3, No Motor/Sensory Deficits, Normal Mood/Affect Skin: Normal Color, Warm/Dry, Other (1x suture to R forearm, appears well- healed no s/s infection) Lymphatic: No Adenopathy (HUGO DERAS STUDENT) Progress/Results/Core Measures Suspected Sepsis SIRS Temperature: Pulse: Respiratory Rate: Blood Pressure / Mean: (HUGO DERAS STUDENT) Results/Orders Vital Signs/I&O 11/10/20 08:15 Temp 36.2 Pulse 77 Resp 14 B/P (MAP) 109/99 (102) Pulse Ox 99 O2 Delivery Room Air (ARLETTE NAYAK) Vital Signs/I&O Capillary Refill : (HUGO DERAS STUDENT) Progress Note : Time: 08:50 Progress Note I attest that I saw this patient alongside the medical student and agree with his documented history, physical exam and review of systems except as otherwise noted. Patient presents here for complaint of his dizziness something going on for several months especially after he gets up from sitting for prolonged period. He says sometimes is worse when he turns his head to the left although it has not been that way lately. He is in dire need of a medication review as he has 16 medicines and no idea what any of them are for. Is possible he is having some iatrogenic dizziness. Is not endorsing syncope more of vertigo. We did a modified [place]-Hallpike maneuver and were unable to elicit any vertigo or dizziness. We will provide him with some meclizine but have instructed [facility] as he needs his medications reviewed first. The patient is in agreement with this plan. (ARLETTE NAYAK) Departure Impression Primary Impression: Vertigo Additional Impression: At risk for polypharmacy Disposition: 01 HOME, SELF-CARE Condition: Stable Departure-Patient Inst. Decision time for Depature: 08:52 (ARLETTE NAYAK) Referrals: SCOTTY PANG MD (PCP/Family) Primary Care Physician Patient Instructions: Vertigo (a Type of Dizziness) (DC) Add. Discharge Instructions: I suspect you are having an episode of vertigo however there are some medications that you might beyond that could be contributing to your symptoms. Before you start any further medicines you need to discuss this with your primary care doctor. You need to have a review of the medications and the doses and see if they need to be changed as they could be making your dizziness worse. If you have persistent dizziness for more than a minute especially if it is acco mpanied by some nausea then you may take 1 tablet of meclizine every 6 hours as necessary. Call your primary care doctor and make a follow-up appointment in the next 1 to 2 weeks to review your medications and dizziness. If it does not resolve then they may need to refer you onto a specialist. All discharge instructions reviewed with patient and/or family. Voiced understanding. Scripts Meclizine HCl (Meclizine HCl) 12.5 Mg Tablet 12.5 MG PO Q6H PRN for DIZZINESS, #10 TAB 0 Refills Prov: ARLETTE NAYAK 11/10/20 HUGO DERAS MED STUDENT Nov 10, 2020 08:26 ARLETTE NAYAK Nov 10, 2020 08:55
[2020-11-10] MEDS ORDERED: MECL-215 PO (08:55)
[2020-11-10 09:12] VITALS: BP 131/75
== END 2020-11-10 09:05 | disposition home or self-care (01) ==
LOC: EDUNIT# 07:36 → ER 07:38
DX: R42 Dizziness and giddiness (principal); Z91.89 Other specified personal risk factors, not elsewhere classified
CPT/HCPCS: 99283

== ENCOUNTER 2021-01-14 14:40 | Emergency (ER) | payer MEDICARE, MEDICAID ==
[~2021-01-14] VITALS: Ht 167 cm; Wt 68.0 kg
[~2021-01-14 14:40] MED LIST changes: +MECL-215 PO
--- NOTE | 2021-01-14 15:50 | Diagnostic Imaging Report ---
INDICATION: Dizziness. TECHNIQUE: Portable chest at 03:47 p.m. FINDINGS: Heart is mildly enlarged. Pulmonary vascularity is normal. Lungs are clear. IMPRESSION: Cardiomegaly without evidence of pulmonary venous hypertension. Dictated by: Dictated on workstation # [id number]
[2021-01-14 16:01] LABS: BASOPHILS % (AUTO) 1 % (0-10); EOSINOPHILS % (AUTO) 1 % (0-10); HEMATOCRIT 34 % (40-54); HEMOGLOBIN 11.3 g/dL (13.3-17.7); LYMPHOCYTES # (AUTO) 1.4 10^3/uL (1.0-4.0); LYMPHOCYTES % (AUTO) 43 % (12-44); MEAN CORPUSCULAR HEMOGLOBIN 36 pg (25-34); MEAN CORPUSCULAR HGB CONC 34 g/dL (32-36); MEAN CORPUSCULAR VOLUME 107 fL (80-99); MEAN PLATELET VOLUME 10.5 fL (9.0-12.2); MONOCYTES % (AUTO) 31 % (0-12); NEUTROPHILS # (AUTO) 0.8 10^3/uL (1.8-7.8); NEUTROPHILS % (AUTO) 24 % (42-75); PLATELET COUNT 137 10^3/uL (130-400); WHITE BLOOD COUNT 3.2 10^3/uL (4.3-11.0)
[2021-01-14 16:15] LABS: CHLORIDE 106 MMOL/L (98-107); POTASSIUM 4.5 MMOL/L (3.6-5.0); SODIUM 143 MMOL/L (135-145)
[2021-01-14 16:16] LABS: CALCIUM 9.6 MG/DL (8.5-10.1)
[2021-01-14 16:17] LABS: GLUCOSE 115 MG/DL (70-105); TOTAL PROTEIN 7.5 GM/DL (6.4-8.2)
[2021-01-14 16:18] LABS: CARBON DIOXIDE 26 MMOL/L (21-32)
[2021-01-14 16:19] LABS: BILIRUBIN,TOTAL 0.4 MG/DL (0.1-1.0)
[2021-01-14 16:21] LABS: ALKALINE PHOSPHATASE 71 U/L (40-136); CREATININE SERUM 1.26 MG/DL (0.60-1.30); GFR ESTIMATED 54
[2021-01-14 16:22] LABS: BUN/CREATININE RATIO 13
[2021-01-14 16:24] LABS: ALANINE AMINOTRANSFERASE 16 U/L (0-55); MAGNESIUM 2.1 MG/DL (1.6-2.4)
[2021-01-14 16:25] LABS: LIPASE 41 U/L (8-78)
--- NOTE | 2021-01-14 16:25 | Diagnostic Imaging Report ---
CLINICAL INDICATION: Patient with dizziness since yesterday. EXAM: Axial CT scan of the brain without IV contrast with coronal and sagittal reformatted images. Auto Exposure Controls were utilized during the CT exam to meet ALARA standards for radiation dose reduction. COMPARISON: Head CT without contrast dated 10/26/2020. FINDINGS: There is no evidence of acute cerebral infarct, intracranial hemorrhage, or gross mass effect. There is diffuse brain parenchymal volume loss with the temporal lobes affected the most. There are subtle patchy areas of low-attenuation white matter changes involving both cerebral hemispheres, likely representing chronic small vessel ischemic disease. There is normal huizar-white matter distinction. There is no significant midline shift or herniation. There is no evidence of hydrocephalus. The basal cisterns are unremarkable. The skull, extracranial soft tissue, and orbits are unremarkable. There is mild mucosal thickening involving the ethmoid sinus and sphenoid sinus. Temporal bones show no significant abnormality. IMPRESSION: 1: There is no evidence of acute intracranial process. 2: There is diffuse brain parenchymal volume loss with the temporal lobes affected the most. 3: Mild paranasal sinus disease. Dictated by: Dictated on workstation # [id number]
[2021-01-14 16:41] LABS: BAND NEUTROPHILS 3 %; BASOPHILS % (MANUAL) 2 %; EOSINOPHILS % (MANUAL) 2 %; LYMPHOCYTES % (MANUAL) 53 %; MONOCYTES % (MANUAL) 26 %; NEUTROPHILS % (MANUAL) 14 %
[2021-01-14 16:46] LABS: BILIRUBIN,URINE NEGATIVE (NEGATIVE); CLARITY,URINE CLEAR; COLOR,URINE YELLOW; GLUCOSE, URINE (UA) NEGATIVE (NEGATIVE); KETONES,URINE NEGATIVE (NEGATIVE); LEUKOCYTE ESTERASE ,URINE NEGATIVE (NEGATIVE); NITRITE,URINE NEGATIVE (NEGATIVE); PH,URINE 6.5 (5-9); PROTEIN,URINE TRACE (NEGATIVE)
[2021-01-14 16:52] LABS: BACTERIA,URINE NEGATIVE /HPF; SQUAMOUS EPITHELIAL CELL,UR RARE /HPF
--- NOTE | 2021-01-14 18:58 | ED General ---
General Chief Complaint: Dizziness/Syncope Stated Complaint: DIZZINESS Nursing Triage Note: TO ED PER EMS FROM HOME PATIENT REPORTS FOR PAST YEAR HAS BEEN DIZZY AFTER FALLING AND HITTING HEAD. GIVES POOR HX WHY HE IS HERE. Source of Information: Patient, Family, Old Records Exam Limitations: No Limitations History of Present Illness Date Seen by Provider: Jan 14, 2021 Time Seen by Provider: 14:59 Initial Comments This 85-year-old gentleman presents to the emergency room via EMS with complaints of being dizzy. He is a rather poor historian. He reports multiple falls in the past but is vague about the timing. He reports 1 more remote fall in which he laid in the past year for 1/2-day. He has some gait problems and uses a cane. 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 Patient is fairly resistant to answering questions and receiving care/evaluation. He is at times belligerent, cursing at staff, and making ana ppropriate comments to female workers. Patient's sister Alma Rosa ([phone]) called the ER and also reported that he has been having some significant behavioral problems in recent years. He has had admission to [facility]. She does not believe he is taking his medications. They got him an apartment in town which he refuses to use. [facility] is going to reclaim that apartment because he has only stayed a few nights there. Patient states he has a [facility] doctor and takes up to 16 medications. He denies seeing a doctor locally. He reportedly has an appointment with Dr. De La Rosa at [facility] tomorrow. He implies he does not intend to go to that appointment. Patient has been worked up for his dizziness multiple times in the past according to reviewed record. No etiology has previously been identified. See prior records for more detail. Patient describes his dizziness as more of a lightheadedness rather than a vertiginous spinning. He has some left-sided abdominal tenderness on exam but he does not want this addressed. He only wants me to address his dizziness. Patient is a poor historian regarding his past medical history, chronic conditions, and medications. Allergies and Home Medications Allergies Uncoded Allergies: BEES (Allergy, Severe, 05/26/18) Patient Home Medication List Home Medication List Reviewed: Yes Acetaminophen (Tylenol) 325 Mg Tablet, 650 MG PO Q4H, (Reported) Entered as Reported by: ROMEO MORSE on 03/16/1629 Aspirin (Aspirin EC) 81 Mg Tablet.dr, 162 MG PO DAILY, (Reported) Entered as Reported by: ROMEO MORSE on 03/16/16728 Cyclobenzaprine HCl (Cyclobenzaprine HCl) 10 Mg Tablet, 10 MG PO Q8H PRN for SPASMS Prescribed by: CELIA ISSA on 12/30/19 1224 Meclizine HCl (Meclizine HCl) 12.5 Mg Tablet, 12.5 MG PO Q6H PRN for DIZZINESS Prescribed by: ARLETTE NAYAK on 11/10/20 0855 Review of Systems Review of Systems Constitutional: no symptoms reported EENTM: no symptoms reported Respiratory: no symptoms reported Cardiovascular: see HPI Gastrointestinal: see HPI Genitourinary: no symptoms reported Musculoskeletal: no symptoms reported Skin: no symptoms reported Psychiatric/Neurological: See HPI Hematologic/Lymphatic: No Symptoms Reported Immunological/Allergic: no symptoms reported Past Fzjtbht-Iibkwa-Rxqdnh Hx Patient Social History Tobacco Use?: No Substance use?: No Pt feels they are or have been: No Immunizations Up To Date First/Initial COVID19 Vaccinat: 06/20 Second COVID19 Vaccination Bryant: 07/25 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 pylori) Musculoskeletal: No Endocrine: No Cancer: No Psychosocial: No Integumentary: No Blood Disorders: No Family Medical History No Pertinent Family Hx Physical Exam Vital Signs Vital Signs - First Documented 01/14/21 14:43 Temp 36.5 Pulse 75 Resp 18 B/P (MAP) 139/80 (99) O2 Delivery Room Air Capillary Refill : Less Than 3 Seconds Height, Weight, BMI Height: 5'7.00" Weight: 200lbs. 0.0oz. 90.613489uo; 24.00 BMI Method:Stated General Appearance: No Apparent Distress, WD/WN HEENT: PERRL/EOMI, TMs Normal, Normal ENT Inspection Neck: Normal Inspection; No Carotid Bruit, No JVD Respiratory: Lungs Clear, Normal Breath Sounds, No Accessory Muscle Use Cardiovascular: Regular Rate, Rhythm, No Edema, No Murmur Gastrointestinal: Normal Bowel Sounds, Soft; No Distended; Tenderness (Mid left abdomen) Extremity: Normal Inspection, No Pedal Edema Neurologic/Psychiatric: Alert, card filer II-XII Norm as Tested, Other (Patient uncooperative at times and sometimes belligerent, cursing at staff and making inappropriate comments. He has a tremor.) Skin: Normal Color, Warm/Dry Progress/Results/Core Measures Suspected Sepsis SIRS Temperature: Pulse: 75 Respiratory Rate: 18 Laboratory Tests 01/14/21 15:54: White Blood Count 3.2L Blood Pressure 139 /80 Mean: 99 Laboratory Tests 01/14/21 15:54: Creatinine 1.26, Platelet Count 137, Total Bilirubin 0.4 Results/Orders Lab Results Laboratory Tests Test 01/14/21 15:54 01/14/21 16:35 Range/Units White Blood Count 3.2 L 4.3-11.0 10^3/uL Red Blood Count 3.16 L 4.30-5.52 10^6/uL Hemoglobin 11.3 L 13.3-17.7 g/dL Hematocrit 34 L 40-54 % Mean Corpuscular Volume 107 H 80-99 fL Mean Corpuscular Hemoglobin 36 H 25-34 pg Mean Corpuscular Hemoglobin Concent 34 32-36 g/dL Red Cell Distribution Width 13.7 10.0-14.5 % Platelet Count 137 130-400 10^3/uL Mean Platelet Volume 10.5 9.0-12.2 fL Immature Granulocyte % (Auto) 1 % Neutrophils (%) (Auto) 24 L 42-75 % Lymphocytes (%) (Auto) 43 12-44 % Monocytes (%) (Auto) 31 H 0-12 % Eosinophils (%) (Auto) 1 0-10 % Basophils (%) (Auto) 1 0-10 % Neutrophils # (Auto) 0.8 L 1.8-7.8 10^3/uL Lymphocytes # (Auto) 1.4 1.0-4.0 10^3/uL Monocytes # (Auto) 1.0 0.0-1.0 10^3/uL Eosinophils # (Auto) 0.0 0.0-0.3 10^3/uL Basophils # (Auto) 0.0 0.0-0.1 10^3/uL Immature Granulocyte # (Auto) 0.0 0.0-0.1 10^3/uL Neutrophils % (Manual) 14 % Lymphocytes % (Manual) 53 % Monocytes % (Manual) 26 % Eosinophils % (Manual) 2 % Basophils % (Manual) 2 % Band Neutrophils 3 % Macrocytosis SLIGHT Sodium Level 143 135-145 MMOL/L Potassium Level 4.5 3.6-5.0 MMOL/L Chloride Level 106 98-107 MMOL/L Carbon Dioxide Level 26 21-32 MMOL/L Anion Gap 11 5-14 MMOL/L Blood Urea Nitrogen 16 7-18 MG/DL Creatinine 1.26 0.60-1.30 MG/DL Estimat Glomerular Filtration Rate 54 BUN/Creatinine Ratio 13 Glucose Level 115 H 70-105 MG/DL Calcium Level 9.6 8.5-10.1 MG/DL Corrected Calcium 9.6 8.5-10.1 MG/DL Magnesium Level 2.1 1.6-2.4 MG/DL Total Bilirubin 0.4 0.1-1.0 MG/DL Aspartate Amino Transf (AST/SGOT) 17 5-34 U/L Alanine Aminotransferase (ALT/SGPT) 16 0-55 U/L Alkaline Phosphatase 71 40-136 U/L Troponin I < 0.028 <0.028 NG/ML C-Reactive Protein High Sensitivity 0.20 0.00-0.50 MG/DL B-Type Natriuretic Peptide 50.8 <100.0 PG/ML Total Protein 7.5 6.4-8.2 GM/DL Albumin 4.0 3.2-4.5 GM/DL Lipase 41 8-78 U/L Serum Alcohol < 10 <10 MG/DL Urine Color YELLOW Urine Clarity CLEAR Urine pH 6.5 5-9 Urine Specific [place] 1.020 1.016-1.022 Urine Protein TRACE H NEGATIVE Urine Glucose (UA) NEGATIVE NEGATIVE Urine Ketones NEGATIVE NEGATIVE Urine Nitrite NEGATIVE NEGATIVE Urine Bilirubin NEGATIVE NEGATIVE Urine Urobilinogen 1.0 < = 1.0 MG/DL Urine Leukocyte Esterase NEGATIVE NEGATIVE Urine RBC (Auto) NEGATIVE NEGATIVE Urine RBC NONE /HPF Urine WBC NONE /HPF Urine Squamous Epithelial Cells RARE /HPF Urine Crystals NONE /LPF Urine Bacteria NEGATIVE /HPF Urine Casts NONE /LPF Urine Mucus NEGATIVE /LPF Urine Culture Indicated NO My Orders Orders - GEORGES HUTCHISON MD Magnesium (01/14/21 15:16) Hs C Reactive Protein (01/14/21 15:16) Lipase (01/14/21 15:16) Troponin I (01/14/21 15:16) BNP (01/14/21 16:03) Alcohol (01/14/21 17:10) Vital Signs/I&O 01/14/21 01/14/21 14:43 19:10 Temp 36.5 Pulse 75 71 Resp 18 18 B/P (MAP) 139/80 (99) 127/93 O2 Delivery Room Air Room Air Capillary Refill : Less Than 3 Seconds Blood Pressure Mean: 99 Progress Note : Progress Note No definite etiology for patient's dizziness was identified. I have not been able to identify any imaging of the carotid arteries in the record. CT angiogram was ordered but patient been notified CT staff that he has a contrast allergy or adverse reaction stating he "passed out" once at a prior facility and was told never to receive contrast again. Ultrasound is not available at this time. I have advised patient and his family that he should obtain carotid ultrasound imaging on an outpatient basis. I did explore the patient's living situation and primary care access. Patient is resistant to these discussions. He has no interest in living in the apartment in [place], going to [facility], or changing any of his other arrangements. He is resistant to following up with his appointment with Dr. De La Rosa tomorrow. He was discharged from the hospital with one of his sisters. ECG Initial ECG Impression Date: Jan 14, 2021 Initial ECG Impression Time: 15:34 Initial ECG Rate: 68 Initial ECG Rhythm: Normal Sinus Initial ECG Intervals: Normal Initial ECG Impression: Normal Comment Normal sinus rhythm with no ST elevation or depression. No abnormal intervals or axis deviation. Diagnostic Imaging Diagonstic Imaging: Xray Plain Films/CT/US/NM/MRI: chest Comments NAME: CHARLENE GAUTAM [facility] REC#: [id number] PT STATUS: REG ER : 1935 PHYSICIAN: HARMONY MEJIAS APRN ADMIT DATE: 01/14/21/ER Signed Date of Exam:01/14/21 CHEST 1 VIEW, AP/PA ONLY INDICATION: Dizziness. TECHNIQUE: Portable chest at 03:47 p.m. FINDINGS: Heart is mildly enlarged. Pulmonary vascularity is normal. Lungs are clear. IMPRESSION: Cardiomegaly without evidence of pulmonary venous hypertension. Dictated by: Dictated on workstation # [id number] Dict: 01/14/21 1545 Trans: 01/14/21 1553 [facility] [id number] Interpreted by: CHARLENE ZAVALA MD Electronically signed by: CHARLENE ZAVALA MD 01/14/21 1555 Reviewed: Reviewed by Me Diagonstic Imaging: CT Plain Films/CT/US/NM/MRI: head Comments NAME: CHARLENE GAUTAM [facility] REC#: [id number] PT STATUS: REG ER : 1935 PHYSICIAN: HARMONY MEJIAS APRN ADMIT DATE: 01/14/21/ER Signed Date of Exam:01/14/21 CT HEAD WO CLINICAL INDICATION: Patient with dizziness since yesterday. EXAM: Axial CT scan of the brain without IV contrast with coronal and sagittal reformatted images. Auto Exposure Controls were utilized during the CT exam to meet ALARA standards for radiation dose reduction. COMPARISON: Head CT without contrast dated 10/26/2020. FINDINGS: There is no evidence of acute cerebral infarct, intracranial hemorrhage, or gross mass effect. There is diffuse brain parenchymal volume loss with the temporal lobes affected the most. There are subtle patchy areas of low-attenuation white matter changes involving both cerebral hemispheres, likely representing chronic small vessel ischemic disease. There is normal huizar-white matter distinction. There is no significant midline shift or herniation. There is no evidence of hydrocephalus. The basal cisterns are unremarkable. The skull, extracranial soft tissue, and orbits are unremarkable. There is mild mucosal thickening involving the ethmoid sinus and sphenoid sinus. Temporal bones show no significant abnormality. IMPRESSION: 1: There is no evidence of acute intracranial process. 2: There is diffuse brain parenchymal volume loss with the temporal lobes affected the most. 3: Mild paranasal sinus disease. Dictated by: Dictated on workstation # [id number] Dict: 01/14/21 1620 Trans: 01/14/21 1712 [id number] Interpreted by: LAUREN SOSA MD Electronically signed by: LAUREN SOSA MD 10/20/21 1712 Reviewed: Reviewed by Me Departure Impression Primary Impression: Dizziness Disposition: 01 HOME, SELF-CARE Condition: Stable Departure-Patient Inst. Decision time for Depature: 18:57 Referrals: NO,LOCAL PHYSICIAN (PCP/Family) Primary Care Physician Patient Instructions: Dizziness, Adult ED Add. Discharge Instructions: Follow-up with a primary care provider as soon as possible. Contact [facility] and determine the nearest primary care office that can accommodate you. If you are not able to follow-up at a [place] facility, consider establishing with a primary care provider in [place] such as the [facility] Keep your appointment with Dr. De La Rosa at the [facility] clinic tomorrow. Please always walk with a cane or a walker for your safety. Call with any questions or concerns. Return to the ER if you have worsening symptoms. All discharge instructions reviewed with patient and/or family. Voiced understanding. Copy Copies To 1: ANA ROMANO JOSHUA T MD Jan 14, 2021 18:58
[2021-01-14 19:10] VITALS: BP 127/93
== END 2021-01-14 19:10 | disposition home or self-care (01) ==
LOC: EDUNIT# 14:40 → ER 14:40
DX: R42 Dizziness and giddiness (principal); Z79.82 Long term (current) use of aspirin
CPT/HCPCS: 70450; 71045; 80053; 81000; 83690; 83735; 83880; 84484; 85007; 85027; 86141; 93005; 99284; G0480; 36415; 80320

== ENCOUNTER 2021-02-06 18:29 | Emergency (ER) | payer MEDICARE, MEDICAID ==
[~2021-02-06] VITALS: Ht 167.7 cm; Wt 81.6 kg
--- NOTE | 2021-02-06 18:44 | ED Fall/Injury ---
General Chief Complaint: Trauma-Non Activation Stated Complaint: FALL Source: patient, EMS Exam Limitations: clinical condition (Early dementia) History of Present Illness Date Seen by Provider: Feb 06, 2021 Time Seen by Provider: 18:32 Initial Comments Patient presents the ER by EMS from grocery store where he and his sisters were walking when he lost his balance and fell striking his head. He was having a modest amount of bleeding from his mouth. He had dental surgery earlier today. He has a history of dementia. EMS reports he is becoming more lucid as there speaking on their way here but asking repeat questions. He denies pain anywhere except for his head. He denies being on a blood thinner. He denies nausea or vomiting. Allergies and Home Medications Allergies Coded Allergies: Iodinated Contrast Media (Verified Adverse Reaction, Unknown, "Passed out", 01/15/21) Patient reports "passing out" previously at another facility after receiving IV contrast. He states he was told to never receive IV contrast in the future. Uncoded Allergies: BEES (Allergy, Severe, 05/26/18) Patient Home Medication List Home Medication List Reviewed: Yes Acetaminophen (Tylenol) 325 Mg Tablet, 650 MG PO Q4H, (Reported) Entered as Reported by: ROMEO MORSE on 03/16/16 0729 Aspirin (Aspirin EC) 81 Mg Tablet.dr, 162 MG PO DAILY, (Reported) Entered as Reported by: ROMEO MORSE on 03/16/16 0729 Cyclobenzaprine HCl (Cyclobenzaprine HCl) 10 Mg Tablet, 10 MG PO Q8H PRN for SPASMS Prescribed by: CELIA ISSA on 12/30/19 1224 Meclizine HCl (Meclizine HCl) 12.5 Mg Tablet, 12.5 MG PO Q6H PRN for DIZZINESS Prescribed by: ARLETTE NAYAK on 11/10/20 0855 Review of Systems Review of Systems Constitutional: No chills, No diaphoresis Eyes: Denies Blindness, Denies Blurred Vision Ears, Nose, Mouth, Throat: denies ear pain, denies ear discharge Respiratory: No cough, No dyspnea on exertion Cardiovascular: No chest pain, No edema Gastrointestinal: No no symptoms reported, No abdominal pain, No nausea Musculoskeletal: No back pain, No joint pain All Other Systems Reviewed Negative Unless Noted: Yes Past Likgele-Xzazjy-Uazhjn Hx Patient Social History Tobacco Use?: No Use of E-Cig and/or Vaping dev: No Immunizations Up To Date First/Initial COVID19 Vaccinat: 06/20 Second COVID19 Vaccination Bryant: 07/25 Seasonal Allergies Seasonal Allergies: No Past Medical History Surgery/Hospitalization HX: 6 TEETH REMOVED X2 WEEKS AGO. 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 pylori) Musculoskeletal: No Endocrine: No Cancer: No Psychosocial: No Integumentary: No Blood Disorders: No Family Medical History No Pertinent Family Hx Physical Exam Vital Signs Vital Signs - First Documented Capillary Refill : Height, Weight, BMI Height: 5'7.00" Weight: 200lbs. 0.0oz. 90.201629gk; 24.00 BMI Method:Stated General Appearance: WD/WN, no apparent distress HEENT: PERRL/EOMI (4 mm reactive without raccoon eyes), TMs normal (Without hemotympanum or rae sign); No pharynx normal (Dried bloody secretions in the oropharynx) Neck: non-tender, full range of motion, supple, normal inspection Cardiovascular: normal peripheral pulses, regular rate, rhythm, no edema Respiratory: chest non-tender, lungs clear, normal breath sounds, no r espiratory distress, no accessory muscle use Peripheral Pulses: 2+ Radial Pulses (R), 2+ Radial Pulses (L) Gastrointestinal: normal bowel sounds, non tender, soft Pelvic: normal external exam, other (Mild tenderness to palpation bilateral hips without external rotation) Back: normal inspection, no vertebral tenderness Neurologic/Psychiatric: alert, normal mood/affect, oriented x 3 Skin: normal color, warm/dry [place] Coma Score Best Eye Response: (4) Open Spontaneously Best Verbal Response: (5) Oriented Best Motor Response: (6) Obeys Commands Yared Total: 15 Progress/Results/Core Measures Results/Orders Lab Results Laboratory Tests Test 02/06/21 18:46 02/06/21 22:08 02/06/21 22:09 Range/Units White Blood Count 2.3 L 4.3-11.0 10^3/uL Red Blood Count 3.10 L 4.30-5.52 10^6/uL Hemoglobin 10.7 L 13.3-17.7 g/dL Hematocrit 33 L 40-54 % Mean Corpuscular Volume 106 H 80-99 fL Mean Corpuscular Hemoglobin 35 H 25-34 pg Mean Corpuscular Hemoglobin Concent 33 32-36 g/dL Red Cell Distribution Width 13.5 10.0-14.5 % Platelet Count 123 L 130-400 10^3/uL Mean Platelet Volume 10.0 9.0-12.2 fL Immature Granulocyte % (Auto) 1 % Neutrophils (%) (Auto) 18 L 42-75 % Lymphocytes (%) (Auto) 44 12-44 % Monocytes (%) (Auto) 33 H 0-12 % Eosinophils (%) (Auto) 2 0-10 % Basophils (%) (Auto) 1 0-10 % Neutrophils # (Auto) 0.4 L 1.8-7.8 10^3/uL Lymphocytes # (Auto) 1.0 1.0-4.0 10^3/uL Monocytes # (Auto) 0.8 0.0-1.0 10^3/uL Eosinophils # (Auto) 0.1 0.0-0.3 10^3/uL Basophils # (Auto) 0.0 0.0-0.1 10^3/uL Immature Granulocyte # (Auto) 0.0 0.0-0.1 10^3/uL Neutrophils % (Manual) 17 % Lymphocytes % (Manual) 47 % Monocytes % (Manual) 32 % Eosinophils % (Manual) 3 % Basophils % (Manual) 1 % Percent Immature Platelet Fraction 4.4 0.0-7.6 % Blood Morphology Comment NORMAL Urine Color YELLOW Urine Clarity CLEAR Urine pH 7.0 5-9 Urine Specific [place] 1.020 1.016-1.022 Urine Protein TRACE H NEGATIVE Urine Glucose (UA) NEGATIVE NEGATIVE Urine Ketones NEGATIVE NEGATIVE Urine Nitrite NEGATIVE NEGATIVE Urine Bilirubin NEGATIVE NEGATIVE Urine Urobilinogen 1.0 < = 1.0 MG/DL Urine Leukocyte Esterase NEGATIVE NEGATIVE Urine RBC (Auto) 2+ H NEGATIVE Urine RBC 5-10 H /HPF Urine WBC NONE /HPF Urine Squamous Epithelial Cells 0-2 /HPF Urine Crystals NONE /LPF Urine Bacteria NEGATIVE /HPF Urine Casts NONE /LPF Urine Mucus NEGATIVE /LPF Urine Culture Indicated NO SARS-CoV-2 RNA (RT-PCR) Not Detected Not Detecte My Orders Orders - ARLETTE NAYAK Ct Head/Face/Cervical Wo (02/06/21 18:37) Pelvis/Wilber Hips 5> Views (02/06/21 18:37) Cbc With Automated Diff (02/06/21 18:37) Manual Differential (02/06/21 18:46) Alprazolam Tablet (Xanax Tablet) (02/06/21 20:15) Haloperidol Tablet (Haldol Tablet) (02/06/21 20:30) Covid 19 Inhouse Test (02/06/21 22:09) Ua Culture If Indicated (02/06/21 22:21) Medications Given in ED Current Medications Medications Dose Ordered Sig/Jay Route Start Time Stop Time Status Last Admin Dose Admin Alprazolam 0.25 mg ONCE ONCE PO 02/06/21 20:15 02/06/21 20:16 DC 02/06/21 20:30 0.25 MG Haloperidol 5 mg ONCE ONCE PO 02/06/21 20:30 02/06/21 20:31 DC 02/06/21 20:46 5 MG Vital Signs/I&O 02/06/21 02/06/21 02/06/21 18:30 18:30 23:15 Temp 36.8 36.8 36.8 Pulse 64 64 73 Resp 20 20 16 B/P (MAP) 152/71 (98) 152/71 (98) 162/78 Pulse Ox 98 98 99 O2 Delivery Room Air Room Air Room Air Progress Progress Note #1: Time: 18:42 Progress Note Plain films of the hips, CT of the head neck and face. He does not appear to be actively exsanguinating. We will check a CBC. Progress Note #2: Time: 20:21 Progress Note This provider went back into give the results to the patient and his sisters who accompanied him he was being aggressive and belligerent with the staff. I tried again talked and are waiting in a recliner. We explained to him the results of his imaging and he says he just wants to go home. Begin we talked him he could not tell us where he was or who we were even after being reduced ourselves. Became belligerent so we helped him and recliner explained to him that he have to wait there until we had a chance to figure out his home situation. His sister is related he has been belligerent and violent when asked what led to his fall tonight. He is also been doing this for several months and they took him into a psychiatrist yesterday at [facility] to be examined because they do not feel he was safe living in his home alone. He does have home health checking on him and his sister check in daily. His sister Lucie has power of oil change technician. He states he wants to go home but cannot tell us where that is nor does he know where he is now or what kind of building he is in. He does not kn ow the year and is now oriented. He is willing to talk and his long-term memory is intact. He has been calm down and were going to offer him some oral Haldol which his sister said he got earlier at the dentist office. Suspect he has sundowning. We have offered them to stay in the hospital overnight and see if we can get in place may be under our behavioral health. They state he has been to [facility] in the past once and they did not feel like it helped him very much. Progress Note #3: Time: 20:34 Progress Note Patient is sitting comfortably with nurse practitioner and nurse at bedside. P.o. Haldol 5 mg ordered. Put a call into [facility] to see if we can get a overnight admi ssion. Fax over information and they will have the screener call us back. Progress Note #4: Time: 21:24 Progress Note Discussed the case with Sarath Jay, screener for [facility]. We reviewed past medical history and events leading up to today. He says he will come by here a few minutes and visit with the patient. Progress Note #5: Time: 22:57 Progress Note Patient is resting comfortably in his room. Has been offered something to eat. Ready for transport to [facility]. Patient is more lucid now sti ll struggles to remember the date but he is knows what town he is in. He was pleasant for his screening interview. No further concerns. Diagnostic Imaging Diagonstic Imaging: Xray Plain Films/CT/US/NM/MRI: pelvis, hip Comments No acute osseous abnormalities. [facility] [place], [place] NAME: CHARLENE GAUTAM [facility] REC#: [id number] PT STATUS: REG ER : 1935 PHYSICIAN: ARLETTE NAYAK MD ADMIT DATE: 02/06/21/ER Signed Date of Exam:02/06/21 PELVIS/WILBER HIPS 5> VIEWS PELVIS/WILBER HIPS 5> VIEWS INDICATION: Pelvic pain. COMPARISON: None available. TECHNIQUE: AP pelvis with AP and frog-leg lateral views of both hips. FINDINGS: No acute fracture or malalignment involving either hip. Severe degenerative arthritis of both hips is noted. No diastasis of the symphysis pubis or SI joints. The obturator rings are intact. Extensive vascular calcifications are noted. IMPRESSION: No acute fracture about either hip. Dictated by: Dictated on workstation # [id number] Dict: 02/06/211999 Trans: 02/06/212004 [id number] Interpreted by: DAVID OSBORNE MD Electronically signed by: DAVID OSBORNE MD 02/06/212004 Reviewed: Reviewed by [place] Diagonstic Imaging: CT Plain Films/CT/US/NM/MRI: facial bones, c-spine, head Comments NAME: CHARLENE GAUTAM [facility] REC#: [id number] PT STATUS: REG ER : 1935 PHYSICIAN: ARLETTE NAYAK MD ADMIT DATE: 02/06/21/ER Draft Date of Exam:02/06/21 CT HEAD/FACE/CERVICAL WO PROCEDURE: CT head, face and cervical spine without contrast. TECHNIQUE: Multiple contiguous axial images were obtained through the head, neck, and facial bones without the use of intravenous contrast. Sagittal and coronal reformations through the cervical spine and facial bones were also performed. Auto Exposure Controls were utilized during the CT exam to meet ALARA standards for radiation dose reduction. INDICATION: Head pain, blood in mouth from injury. Fall. COMPARISON: CT head from 01/14/2021. FINDINGS: Head: No intracranial hyperdense hemorrhage or space-occupying mass. No hydrocephalus or midline shift. Ratliff-white matter differentiation is preserved. Stable periventricular white matter hypoattenuation is most compatible with chronic microvascular ischemic disease. Basilar cisterns are widely patent. No skull fracture. Paranasal sinuses and mastoid air cells are clear. Face: No acute fracture in the nasal bone, osseous nasal septum or anterior nasal spine. The orbits, zygomatic arches, pterygoid plates and maxillary sinus kim are intact. No fracture of the mandible. Temporomandibular joints are normal in alignment. Cervical spine: No acute fracture or traumatic malalignment in the cervical spine. No high-grade spinal stenosis. No retropharyngeal fluid collection. No cervical lymphadenopathy. Visualized lung apices are clear. IMPRESSION: 1. No acute intracranial hemorrhage or skull fracture. 2. No fracture of the midface or mandible. 3. No acute fracture or traumatic malalignment in the cervical spine. Dictated on workstation # [id number] Dict: 02/06/211952 Trans: 02/06/212000 [id number] Interpreted by: DAVID OSBORNE MD Electronically signed by: Reviewed: Reviewed by Me Departure Impression Primary Impression: Fall Qualified Codes: W19.XXXA - Unspecified fall, initial encounter Additional Impressions: SunDown syndrome Dementia Qualified Codes: F03.91 - Unspecified dementia with behavioral disturbance Surgical wound hemorrhage after dental procedure Disposition: ADMITTED INPATIENT Condition: Stable Transfer Transfer Reason: Exceeds level of care ([facility] not available locally) Time Spoke to Accepting Phy: 21:37 Transfer Progress Notes Spoke to Dr. Galloway who accepts the patient in transfer to [facility]. Sarath Jay came by and screened the patient and agrees with placement. EMS to transport. Transfer Time: 23:23 Transfer Facility: [place], [place] Method of Transfer: EMS ([facility]) Departure-Patient Inst. Referrals: SCOTTY PANG MD Primary Care Physician NO,LOCAL PHYSICIAN (PCP) Patient Instructions: Preventing Falls in the Older Adult ARLETTE NAYAK Feb 06, 2021 18:44
[2021-02-06 18:55] LABS: BASOPHILS % (AUTO) 1 % (0-10); EOSINOPHILS # (AUTO) 0.1 10^3/uL (0.0-0.3); EOSINOPHILS % (AUTO) 2 % (0-10); HEMATOCRIT 33 % (40-54); HEMOGLOBIN 10.7 g/dL (13.3-17.7); LYMPHOCYTES % (AUTO) 44 % (12-44); MEAN CORPUSCULAR HEMOGLOBIN 35 pg (25-34); MEAN CORPUSCULAR HGB CONC 33 g/dL (32-36); MEAN CORPUSCULAR VOLUME 106 fL (80-99); MONOCYTES # (AUTO) 0.8 10^3/uL (0.0-1.0); MONOCYTES % (AUTO) 33 % (0-12); NEUTROPHILS # (AUTO) 0.4 10^3/uL (1.8-7.8); NEUTROPHILS % (AUTO) 18 % (42-75); PLATELET COUNT 123 10^3/uL (130-400); WHITE BLOOD COUNT 2.3 10^3/uL (4.3-11.0)
[2021-02-06 19:09] LABS: BASOPHILS % (MANUAL) 1 %; EOSINOPHILS % (MANUAL) 3 %; LYMPHOCYTES % (MANUAL) 47 %; MONOCYTES % (MANUAL) 32 %; NEUTROPHILS % (MANUAL) 17 %; RBC MORPH NORMAL
--- NOTE | 2021-02-06 20:01 | Diagnostic Imaging Report ---
PROCEDURE: CT head, face and cervical spine without contrast. TECHNIQUE: Multiple contiguous axial images were obtained through the head, neck, and facial bones without the use of intravenous contrast. Sagittal and coronal reformations through the cervical spine and facial bones were also performed. Auto Exposure Controls were utilized during the CT exam to meet ALARA standards for radiation dose reduction. INDICATION: Head pain, blood in mouth from injury. Fall. COMPARISON: CT head from 01/14/2021. FINDINGS: Head: No intracranial hyperdense hemorrhage or space-occupying mass. No hydrocephalus or midline shift. Ratliff-white matter differentiation is preserved. Stable periventricular white matter hypoattenuation is most compatible with chronic microvascular ischemic disease. Basilar cisterns are widely patent. No skull fracture. Paranasal sinuses and mastoid air cells are clear. Face: No acute fracture in the nasal bone, osseous nasal septum or anterior nasal spine. The orbits, zygomatic arches, pterygoid plates and maxillary sinus kim are intact. No fracture of the mandible. Temporomandibular joints are normal in alignment. Cervical spine: No acute fracture or traumatic malalignment in the cervical spine. No high-grade spinal stenosis. No retropharyngeal fluid collection. No cervical lymphadenopathy. Visualized lung apices are clear. IMPRESSION: 1. No acute intracranial hemorrhage or skull fracture. 2. No fracture of the midface or mandible. 3. No acute fracture or traumatic malalignment in the cervical spine. Dictated by: Dictated on workstation # [id number]
--- NOTE | 2021-02-06 20:04 | Diagnostic Imaging Report ---
PELVIS/WILBER HIPS 5> VIEWS INDICATION: Pelvic pain. COMPARISON: None available. TECHNIQUE: AP pelvis with AP and frog-leg lateral views of both hips. FINDINGS: No acute fracture or malalignment involving either hip. Severe degenerative arthritis of both hips is noted. No diastasis of the symphysis pubis or SI joints. The obturator rings are intact. Extensive vascular calcifications are noted. IMPRESSION: No acute fracture about either hip. Dictated by: Dictated on workstation # [id number]
[2021-02-06] MEDS ORDERED: ALPRAZolam 0.25 MG (XANAX) TAB PO ONE (20:15)
[2021-02-06] MEDS ORDERED: HALOPERIDOL 5 MG (HALDOL) TAB PO ONE (20:30)
[2021-02-06 22:26] LABS: BILIRUBIN,URINE NEGATIVE (NEGATIVE); CLARITY,URINE CLEAR; COLOR,URINE YELLOW; GLUCOSE, URINE (UA) NEGATIVE (NEGATIVE); KETONES,URINE NEGATIVE (NEGATIVE); LEUKOCYTE ESTERASE ,URINE NEGATIVE (NEGATIVE); NITRITE,URINE NEGATIVE (NEGATIVE); PROTEIN,URINE TRACE (NEGATIVE)
[2021-02-06 22:35] LABS: BACTERIA,URINE NEGATIVE /HPF; SQUAMOUS EPITHELIAL CELL,UR 0-2 /HPF
[2021-02-06 23:15] VITALS: BP 162/78
== END 2021-02-06 23:20 | disposition other institution (70) ==
LOC: EDUNIT# 18:29 → ER 18:31
DX: K91.840 Postprocedural hemorrhage of a digestive system organ or structure following a digestive system procedure (principal); G44.059 Short lasting unilateral neuralgiform headache with conjunctival injection and tearing (SUNCT), not intractable; F03.90 Unspecified dementia, unspecified severity, without behavioral disturbance, psychotic disturbance, mood disturbance, and anxiety; Z20.822 Contact with and (suspected) exposure to COVID-19; Z79.82 Long term (current) use of aspirin
CPT/HCPCS: 36415; 70450; 70486; 72125; 73523; 81000; 85007; 85027; 87636